=== PATIENT | female | born 1935 | race Caucasian/White ===

== ENCOUNTER 2017-05-03 11:02 | Outpatient (CLI) | payer MEDICARE, BC, SELFPAY | END 2017-05-03 15:59 | PROVIDERS: Family Provider Internal Medicine Adolescent Medicine; Visit Provider Internal Medicine Adolescent Medicine | DX: Z79.01 Long term (current) use of anticoagulants (principal); Z95.2 Presence of prosthetic heart valve; Z51.81 Encounter for therapeutic drug level monitoring | CPT/HCPCS: 85610; 99211; G0463 ==

== ENCOUNTER → 2017-05-24 10:38 | Outpatient (CLI) | payer MEDICARE, BC, SELFPAY ==
[2017-05-24 11:15] LABS: Prothrombin Time 20.7 seconds (9.4-11.8)
[2017-05-24 11:26] LABS: Basophils % 0.5 % (0.1-2.0); Eosinophils % 0.3 % (0.1-12.0); Hematocrit 40.8 % (37.0-47.0); Hemoglobin 13.7 g/dL (12.2-16.2); Lymphocytes # 1.3 K/mm3 (0.7-4.5); Lymphocytes % 26.5 K/mm3 (10-50); Mean Corpuscular HGB Conc 33.6 g/dL (31.8-35.4); Mean Corpuscular Hemoglobin 33.2 pg (27.0-31.2); Mean Corpuscular Volume 98.9 fl (81-99); Mean Platelet Volume 8.8 fl (7.4-10.4); Monocytes # 0.6 K/mm3 (0.1-1.0); Monocytes % 12.6 % (1.7-9.3); Neutrophils # 3.1 K/mm3 (1.8-7.8); Neutrophils % 60.1 % (37.0-80.0); Platelet Count 115 K/mm3 (142-424); Red Blood Count 4.13 M/mm3 (4.20-5.40); Red Cell Distribution Width 12.7 % (11.5-17.5); White Blood Count 5.1 K/mm3 (4.8-10.8)
[2017-05-24 12:43] LABS: Alanine Aminotransferase 23 U/L (12-78); Albumin/Globulin Ratio 1.3 (1.1-1.8); Alkaline Phosphatase 62 U/L (46-116); Anion Gap 13.3 mEq/L (5-15); Aspartate Amino Transferase 30 U/L (15-37); Bilirubin,Total 0.8 mg/dL (0.2-1.0); Blood Urea Nitrogen 14 mg/dL (7-18); Carbon Dioxide 28 mmol/L (21.0-32.0); Chloride 101 mmol/L (98-107); Creatinine,Serum 0.97 mg/dL (0.55-1.02); Estimated Glomerular Filt Rate 55 ml/min (>60); GFR (African American) 67 ML/MIN (>60); Globulin 3.1 gm/dl (1.3-3.2); Glucose 106 mg/dL (74-106); Potassium 4.3 mmoL/L (3.5-5.1); Sodium 138 mmol/L (136-145); Total Protein,Serum 7.1 gm/dL (6.4-8.2)
== END ==
PROVIDERS: Family Provider Internal Medicine Adolescent Medicine; PCP Internal Medicine Adolescent Medicine; Visit Provider Nurse Practitioner Family
DX: J06.9 Acute upper respiratory infection, unspecified (principal); Z95.2 Presence of prosthetic heart valve
CPT/HCPCS: 36415; 80053; 85025; 85610

== ENCOUNTER 2017-05-27 11:09 | Outpatient (CLI) | payer MEDICARE, BC, SELFPAY ==
[2017-05-27 12:57] LABS: INR 4.48 (0.9-1.1); Prothrombin Time 49.1 seconds (9.4-11.8)
[2017-05-27 13:31] LABS: PHA INR Fingerstick 3.8 (0.9-1.1)
== END 2017-05-27 14:09 | disposition home or self-care (01) ==
LOC: ACC 11:12
PROVIDERS: PCP Internal Medicine Adolescent Medicine; Visit Provider Internal Medicine Adolescent Medicine
DX: Z79.01 Long term (current) use of anticoagulants (principal); Z51.81 Encounter for therapeutic drug level monitoring
CPT/HCPCS: 36415; 85610

== ENCOUNTER 2017-06-03 10:34 | Outpatient (CLI) | payer MEDICARE, BC, SELFPAY ==
[2017-06-03 13:05] LABS: INR 4.77 (0.9-1.1); Prothrombin Time 52.3 seconds (9.4-11.8)
[2017-06-03 15:26] LABS: PHA INR Fingerstick 4.2 (0.9-1.1)
== END 2017-06-03 15:32 | disposition home or self-care (01) ==
LOC: ACC 10:37
PROVIDERS: PCP Internal Medicine Adolescent Medicine; Visit Provider Internal Medicine Adolescent Medicine
DX: Z95.2 Presence of prosthetic heart valve (principal); Z79.01 Long term (current) use of anticoagulants; Z51.81 Encounter for therapeutic drug level monitoring
CPT/HCPCS: 36415; 85610

== ENCOUNTER 2017-06-10 10:45 | Outpatient (CLI) | payer MEDICARE, BC, SELFPAY ==
[2017-06-10 14:27] LABS: PHA INR Fingerstick 2.6 (0.9-1.1)
== END 2017-06-10 14:29 | disposition home or self-care (01) ==
LOC: ACC 10:47
PROVIDERS: Family Provider Internal Medicine Adolescent Medicine; PCP Internal Medicine Adolescent Medicine; Visit Provider Internal Medicine Adolescent Medicine
DX: Z95.2 Presence of prosthetic heart valve (principal); Z79.01 Long term (current) use of anticoagulants
CPT/HCPCS: 85610; 99211; G0463

== ENCOUNTER 2017-06-17 10:52 | Outpatient (CLI) | payer MEDICARE, BC, SELFPAY ==
[2017-06-17 13:21] LABS: PHA INR Fingerstick 3.2 (0.9-1.1)
== END 2017-06-17 13:24 | disposition home or self-care (01) ==
LOC: ACC 10:53
PROVIDERS: Family Provider Internal Medicine Adolescent Medicine; PCP Internal Medicine Adolescent Medicine; Visit Provider Internal Medicine Adolescent Medicine
DX: Z79.01 Long term (current) use of anticoagulants (principal); Z51.81 Encounter for therapeutic drug level monitoring
CPT/HCPCS: 85610; 99211; G0463

== ENCOUNTER 2017-07-01 10:42 | Outpatient (CLI) | payer MEDICARE, BC, SELFPAY ==
[2017-07-01 11:46] LABS: PHA INR Fingerstick 2.5 (0.9-1.1)
== END 2017-07-01 11:48 | disposition home or self-care (01) ==
PROVIDERS: PCP Internal Medicine Adolescent Medicine; Visit Provider Internal Medicine Adolescent Medicine
DX: Z79.01 Long term (current) use of anticoagulants (principal); Z51.81 Encounter for therapeutic drug level monitoring; Z95.2 Presence of prosthetic heart valve
CPT/HCPCS: 85610; 99211; G0463

== ENCOUNTER 2017-07-29 10:51 | Outpatient (CLI) | payer MEDICARE, BC, SELFPAY ==
[2017-07-29 11:21] LABS: PHA INR Fingerstick 2.7 (0.9-1.1)
== END 2017-07-29 11:23 | disposition home or self-care (01) ==
LOC: ACC 10:52
PROVIDERS: Family Provider Internal Medicine Adolescent Medicine; PCP Internal Medicine Adolescent Medicine; Visit Provider Internal Medicine Adolescent Medicine
DX: Z79.01 Long term (current) use of anticoagulants (principal); Z51.81 Encounter for therapeutic drug level monitoring
CPT/HCPCS: 85610; 99211; G0463

== ENCOUNTER 2017-08-26 10:43 | Outpatient (CLI) | payer MEDICARE, BC, SELFPAY ==
[2017-08-26 11:45] LABS: PHA INR Fingerstick 2.5 (0.9-1.1)
== END 2017-08-26 11:51 | disposition home or self-care (01) ==
LOC: ACC 10:44
PROVIDERS: Family Provider Internal Medicine Adolescent Medicine; PCP Internal Medicine Adolescent Medicine; Visit Provider Internal Medicine Adolescent Medicine
DX: Z79.01 Long term (current) use of anticoagulants (principal); Z51.81 Encounter for therapeutic drug level monitoring; Z95.2 Presence of prosthetic heart valve
CPT/HCPCS: 85610; 99211; G0463

== ENCOUNTER → 2017-09-05 15:32 | Outpatient (CLI) | payer MEDICARE, BC, SELFPAY ==
--- NOTE | 2017-09-05 15:44 | XR_ITS ---
XR ribs RT min 3V w CXR1V Ordering Physician: Yuli Grey Patient Age: 81 years: Female HISTORY: ITS.REASON: RT SIDED CHEST WALL PAIN TECHNIQUE: Both Oblique view of right ribs AP chest above and below diaphragm COMPARISON :No previous FINDINGS: Right ribs are intact with no fracture nor lesion evident. The lungs are well expanded and clear with no active disease no pneumothorax. No pleural effusion. The subtle rib fractures may be difficult to visualize pain persist consider follow-up The AP view the chest above and below diaphragm. Reveals nonspecific bowel gas pattern and mild dextroscoliosis lumbar spine there is a pacer device overlying the left chest with atrial and ventricular leads intact. Previous replacement and sternotomy evident lungs clear. IMPRESSION: Right ribs intact no fracture evident Lungs clear. No active disease Pacemaker. Valvular Replacement. Sternotomy
== END ==
PROVIDERS: PCP Internal Medicine Adolescent Medicine; Visit Provider Nurse Practitioner Family
DX: R07.89 Other chest pain (principal); M81.0 Age-related osteoporosis without current pathological fracture
CPT/HCPCS: 71101

== ENCOUNTER 2017-09-23 10:44 | Outpatient (CLI) | payer MEDICARE, BC, SELFPAY ==
[2017-09-23 13:44] LABS: PHA INR Fingerstick 2.4 (0.9-1.1)
== END 2017-09-23 13:46 | disposition home or self-care (01) ==
LOC: ACC 10:45
PROVIDERS: PCP Internal Medicine Adolescent Medicine; Visit Provider Internal Medicine Adolescent Medicine
DX: Z79.01 Long term (current) use of anticoagulants (principal); Z51.81 Encounter for therapeutic drug level monitoring; Z95.2 Presence of prosthetic heart valve
CPT/HCPCS: 85610; 99211; G0463

== ENCOUNTER 2017-10-14 10:37 | Outpatient (CLI) | payer MEDICARE, BC, SELFPAY ==
[2017-10-14 11:10] LABS: PHA INR Fingerstick 2.2 (0.9-1.1)
== END 2017-10-14 11:23 | disposition home or self-care (01) ==
LOC: ACC 10:39
PROVIDERS: PCP Internal Medicine Adolescent Medicine; Visit Provider Internal Medicine Adolescent Medicine
DX: Z79.01 Long term (current) use of anticoagulants (principal); Z51.81 Encounter for therapeutic drug level monitoring; Z95.2 Presence of prosthetic heart valve
CPT/HCPCS: 85610; 99211; G0463

== ENCOUNTER 2017-10-28 10:35 | Outpatient (CLI) | payer MEDICARE, BC, SELFPAY ==
[2017-10-28 12:06] LABS: PHA INR Fingerstick 2.4 (0.9-1.1)
== END 2017-10-28 14:54 | disposition home or self-care (01) ==
LOC: ACC 10:37
PROVIDERS: PCP Internal Medicine Adolescent Medicine; Visit Provider Internal Medicine Adolescent Medicine
DX: Z79.01 Long term (current) use of anticoagulants (principal); Z51.81 Encounter for therapeutic drug level monitoring; Z95.0 Presence of cardiac pacemaker
CPT/HCPCS: 85610; 99211; G0463

== ENCOUNTER 2017-11-17 10:18 | Outpatient (CLI) | payer MEDICARE, BC, SELFPAY | END 2017-11-17 11:16 | disposition home or self-care (01) | LOC: ACC 10:19 | PROVIDERS: PCP Internal Medicine Adolescent Medicine; Visit Provider Internal Medicine Adolescent Medicine | DX: Z79.01 Long term (current) use of anticoagulants (principal); Z51.81 Encounter for therapeutic drug level monitoring; Z95.2 Presence of prosthetic heart valve | CPT/HCPCS: 85610; 99211; G0463 ==

== ENCOUNTER → 2017-11-18 11:22 | Outpatient (CLI) | payer MEDICARE, BC, SELFPAY ==
[2017-11-18 12:20] LABS: Basophils % 0.4 % (0.1-2.0); Eosinophils # 0.1 K/mm3 (0.0-0.4); Eosinophils % 1.9 % (0.1-12.0); Hematocrit 46.6 % (37.0-47.0); Hemoglobin 14.8 g/dL (12.2-16.2); Lymphocytes # 1.4 K/mm3 (0.7-4.5); Lymphocytes % 26.3 K/mm3 (10-50); Mean Corpuscular HGB Conc 31.8 g/dL (31.8-35.4); Mean Corpuscular Volume 100.4 fl (81-99); Mean Platelet Volume 8.4 fl (7.4-10.4); Monocytes # 0.3 K/mm3 (0.1-1.0); Monocytes % 5.8 % (1.7-9.3); Neutrophils # 3.6 K/mm3 (1.8-7.8); Neutrophils % 65.6 % (37.0-80.0); Platelet Count 127 K/mm3 (142-424); Red Blood Count 4.64 M/mm3 (4.20-5.40); Red Cell Distribution Width 12.5 % (11.5-17.5); White Blood Count 5.4 K/mm3 (4.8-10.8)
[2017-11-18 13:23] LABS: Alanine Aminotransferase 28 U/L (12-78); Albumin Level 4.4 gm/dL (3.4-5.0); Albumin/Globulin Ratio 1.3 (1.1-1.8); Alkaline Phosphatase 69 U/L (46-116); Amylase 55 U/L (25-125); Anion Gap 10.2 mEq/L (5-15); Aspartate Amino Transferase 35 U/L (15-37); Bilirubin,Total 0.8 mg/dL (0.2-1.0); Blood Urea Nitrogen 15 mg/dL (7-18); Calcium 9.5 mg/dL (8.5-10.1); Carbon Dioxide 30 mmol/L (21.0-32.0); Chloride 107 mmol/L (98-107); Creatinine,Serum 0.84 mg/dL (0.55-1.02); Estimated Glomerular Filt Rate 65 ml/min (>60); GFR (African American) 79 ML/MIN (>60); Globulin 3.5 gm/dl (1.3-3.2); Glucose 101 mg/dL (74-106); Lipase 148 u/L (73-393); Potassium 4.2 mmoL/L (3.5-5.1); Sodium 143 mmol/L (136-145); Total Protein,Serum 7.9 gm/dL (6.4-8.2)
== END ==
PROVIDERS: Visit Provider Internal Medicine Adolescent Medicine
DX: R10.31 Right lower quadrant pain (principal); Z79.01 Long term (current) use of anticoagulants; Z51.81 Encounter for therapeutic drug level monitoring
CPT/HCPCS: 36415; 80053; 82150; 83690; 85025

== ENCOUNTER → 2017-11-21 10:47 | Outpatient (CLI) | payer MEDICARE, BC, SELFPAY ==
--- NOTE | 2017-11-21 10:57 | CT_ITS ---
CT abdomen pelvis wo/w con INDICATION: Right lower quadrant pain. RLQ pain last week better now No diarrhea or constipation PATIENT AGE: 81 years ORDERING PHYSICIAN: Nazario Burk MD COMPARISON: None available . TECHNIQUE: Axial images are obtained abdomen pre and postcontrast IV contrast using 75 cc [id number] on the postcontrast image set.. Oral contrast also utilized and present on both image sequences. Sagittal and coronal reformatted images are reviewed as well. All CT scans at the facility use one or more dose reduction, viz: automated exposure control; ma/kV adjustment per patient size (including targeted exams where dose is matched to indication; i.e. head); or iterative reconstruction technique. FINDINGS: Lung bases. No active disease. Cardiomegaly with mitral valve replacement.LAE . Pacemaker wires Liver. Unremarkable moderate size common duct at hilum of the liver but no] biliary ductal dilatation. Common duct normal at head of pancreas is well. Gallbladder. Mild enhancement of perhaps a slightly thickened gallbladder wall suggest gallbladder ultrasound given the right-sided symptoms. Slightly low-lying gallbladder with fundus just over 2 cm above the iliac crest Pancreas. Slightly atrophic. No lesions nor ductal dilatation. No focal lesions. Spleen. Normal size. Slightly patchy appearance postcontrast most likely reflects early postcontrast imaging most likely. Moderate calcification throughout splenic artery Adrenals unremarkable. Kidneys. No urinary tract calculi evident on the precontrast studies. No urinary tract obstruction. Kidneys appear satisfactory. Ureters unremarkable. GI tract. Stomach emptying with upper normal wall thickness. Small bowel unremarkable. Large bowel. Moderate to generous stool throughout entire colon. Colonic diverticulosis most evident at the sigmoid colon. Terminal ileum unremarkable. Appendix normal. No free fluid or air in the abdomen or pelvis. Pelvis Previous hysterectomy. No adnexal masses no pelvic nor mesenteric nor retroperitoneal adenopathy. Diffuse atherosclerotic calcification aorta as well as at origin of renal arteries. Aorta normal caliber no aneurysm. Osseous. Degenerative changes spine. Hypertrophic facet changes throughout the L-spine most notable IMPRESSION: No acute findings abdomen pelvis Regarding right lower quadrant pain but no inflammatory changes are seen here. Normal-appearing terminal ileum and appendix. A generous stool is seen throughout the colon most evident at the right colon. May reflect mild constipation but unimpressive Gallbladder wall appears borderline to slightly thickened with suggestion mild enhancement. Low-lying gallbladder could give breast right lower quadrant symptoms. Recommend gallbladder ultrasound Colonic diverticulosis most evident sigmoid colon. But no diverticulitis
== END ==
PROVIDERS: Family Provider Internal Medicine Adolescent Medicine; PCP Internal Medicine Adolescent Medicine; Visit Provider Internal Medicine Adolescent Medicine
DX: R10.31 Right lower quadrant pain (principal)
CPT/HCPCS: 74170; 74178; Q9967

== ENCOUNTER → 2017-11-29 08:52 | Outpatient (CLI) | payer MEDICARE, BC, SELFPAY ==
--- NOTE | 2017-11-29 08:55 | US_ITS ---
US abdomen limited History:Abdominal pain, abnormal CT scan of the abdomen Ordering Physician:Nazario Burk MD Patient Age: 82 years Comparison: 11/21/2017 Findings: Pancreas:Unremarkable. No obvious mass or abnormal fluid collection. No ductal dilatation Liver: The liver is normal in size and shows normal parenchyma except for small area of increased echogenicity of the right lobe measuring 2.8 cm in diameter and this likely is a hemangioma. Review of the recent CT scan showed a subtle and questionable area of hypodensity right lobe which became isodense with the liver parenchyma following infusion of IV contrast. Right Kidney:Unremarkable. Normal size and echogenicity. No hydronephrosis Gallbladder: There are somewhat large calcified and partially calcified gallstones and there is slight thickening the gallbladder wall . Impression: Obvious cholelithiasis and there could be some degree of chronic cholecystitis as well. Probable small hemangioma right lobe of the liver
== END ==
PROVIDERS: Family Provider Internal Medicine Adolescent Medicine; PCP Internal Medicine Adolescent Medicine; Visit Provider Internal Medicine Adolescent Medicine
DX: R10.84 Generalized abdominal pain (principal); R93.2 Abnormal findings on diagnostic imaging of liver and biliary tract
CPT/HCPCS: 76705

== ENCOUNTER 2017-12-16 11:16 | Outpatient (CLI) | payer MEDICARE, BC, SELFPAY ==
[2017-12-16 11:59] LABS: PHA INR Fingerstick 2.8 (0.9-1.1)
== END 2017-12-16 12:01 | disposition home or self-care (01) ==
LOC: ACC 11:17
PROVIDERS: Family Provider Internal Medicine Adolescent Medicine; PCP Internal Medicine Adolescent Medicine; Visit Provider Internal Medicine Adolescent Medicine
DX: Z79.01 Long term (current) use of anticoagulants (principal); Z51.81 Encounter for therapeutic drug level monitoring; Z95.2 Presence of prosthetic heart valve
CPT/HCPCS: 85610; 99211; G0463

== ENCOUNTER → 2018-01-03 11:37 | Outpatient (CLI) | payer MEDICARE, BC, SELFPAY ==
[2018-01-03 12:08] LABS: Basophils % 0.5 % (0.1-2.0); Eosinophils # 0.1 K/mm3 (0.0-0.4); Eosinophils % 2.3 % (0.1-12.0); Hematocrit 39.2 % (37.0-47.0); Hemoglobin 13.3 g/dL (12.2-16.2); Lymphocytes # 1.3 K/mm3 (0.7-4.5); Lymphocytes % 25.3 K/mm3 (10-50); Mean Corpuscular HGB Conc 33.9 g/dL (31.8-35.4); Mean Corpuscular Hemoglobin 33.3 pg (27.0-31.2); Mean Corpuscular Volume 98.3 fl (81-99); Mean Platelet Volume 8.1 fl (7.4-10.4); Monocytes # 0.4 K/mm3 (0.1-1.0); Neutrophils # 3.2 K/mm3 (1.8-7.8); Neutrophils % 63.8 % (37.0-80.0); Platelet Count 114 K/mm3 (142-424); Red Blood Count 3.99 M/mm3 (4.20-5.40); Red Cell Distribution Width 12.9 % (11.5-17.5)
[2018-01-03 12:29] LABS: Alanine Aminotransferase 22 U/L (12-78); Albumin Level 3.9 gm/dL (3.4-5.0); Albumin/Globulin Ratio 1.1 (1.1-1.8); Alkaline Phosphatase 67 U/L (46-116); Anion Gap 12.9 mEq/L (5-15); Aspartate Amino Transferase 21 U/L (15-37); Blood Urea Nitrogen 17 mg/dL (7-18); Calcium 9.5 mg/dL (8.5-10.1); Carbon Dioxide 28 mmol/L (21.0-32.0); Chloride 104 mmol/L (98-107); Creatinine,Serum 0.88 mg/dL (0.55-1.02); Estimated Glomerular Filt Rate 62 ml/min (>60); GFR (African American) 75 ML/MIN (>60); Globulin 3.6 gm/dl (1.3-3.2); Glucose 103 mg/dL (74-106); Potassium 3.9 mmoL/L (3.5-5.1); Sodium 141 mmol/L (136-145); Total Protein,Serum 7.5 gm/dL (6.4-8.2)
== END ==
PROVIDERS: Family Provider Internal Medicine Adolescent Medicine; PCP Internal Medicine Adolescent Medicine; Visit Provider Surgery
DX: Z01.818 Encounter for other preprocedural examination (principal); K80.10 Calculus of gallbladder with chronic cholecystitis without obstruction
CPT/HCPCS: 36415; 80053; 85025; 93005

== ENCOUNTER 2018-01-10 10:39 | Inpatient (IN) ==
--- NOTE | 2018-01-10 10:58 | Emergency Department Note ---
ED Disposition Clinical Impression: Hematoma following procedure, Mechanical heart valve present, Subtherapeutic anticoagulation Clinical Impression: (Ruled Out): Hematoma Disposition: Home, Self-Care Condition on Discharge: Fair Referrals: Nazario Burk MD [Primary Care Provider] - - Critical Care Critical Care Time: No Attestation: On , the high probability of a clinically significant, sudden or life threatening deterioration of the following system(s) required my full and direct attention, intervention and personal management. The time I documented below is in addition to time spent performing reported procedures but includes the following listed in this critical care notation. Medical Decision Making - [place] Inquiry Pt receiving controlled substance: No [place] was queried for this patient: No Vital Signs: 01/10/18 10:53 01/10/18 11:09 01/10/18 11:55 Temperature 98.6 F 98.6 F Temperature Source Oral Oral Pulse Rate [Left Radial] 63 63 82 Respiratory Rate 20 20 Blood Pressure [Right Arm] 151/75 151/75 143/82 Blood Pressure Mean [Right Arm] 100 100 102 Blood Pressure Source [Right Arm] Automatic Cuff Automatic Cuff Automatic Cuff Blood Pressure Position [Right Arm] Sitting Sitting Sitting 02 Sat by Pulse Oximetry 97 97 97 Oxygen Delivery Method Room Air Room Air 01/10/18 12:12 01/10/18 13:21 Temperature Temperature Source Pulse Rate [Left Radial] 60 63 Respiratory Rate 18 Blood Pressure [Right Arm] 122/73 122/60 Blood Pressure Mean [Right Arm] 89 80 Blood Pressure Source [Right Arm] Automatic Cuff Automatic Cuff Blood Pressure Position [Right Arm] Sitting Sitting 02 Sat by Pulse Oximetry 96 98 Oxygen Delivery Method Room Air - Lab Data Lab Results 01/10/18 10:55: WBC 8.2, RBC 3.62 L, Hgb 12.0 L, Hct 36.2 L, MCV 100.0 H, MCH 33.3 H, MCHC 33.3, RDW 13.0, Plt Count 135 L, MPV 8.4, Neut % (Auto) 70.8, Lymph % (Auto) 20.9, [place] % (Auto) 6.6, Eos % (Auto) 1.5, Baso % (Auto) 0.2, Neut # (Auto) 5.8, Lymph # (Auto) 1.7, [place] # (Auto) 0.5, Eos # (Auto) 0.1, Baso # (Auto) 0.0 01/10/18 10:55: PT 15.7 H, INR 1.54 H, APTT 33.3 01/10/18 10:55: Sodium 142, Potassium 4.2, Chloride 105, Carbon Dioxide 31, Anion Gap 10.2, BUN 13, Creatinine 1.00, Estimated Creat Clear 38, Estimated GFR 53 L, Est GFR ( Amer) 65, Glucose 121 H, Calcium 8.9, Total Bilirubin 0.7, AST 23, ALT 38, Alkaline Phosphatase 65, Total Creatine Kinase 25 L, CK-MB (CK-2) < 0.5, CK-MB (CK-2) Rel Index 2.0, Troponin I < 0.02, Total Protein 7.1, Albumin 3.6, Globulin 3.5 H, Albumin/Globulin Ratio 1.0 L 01/10/18 13:57: Urine Color Yellow, Urine Appearance Clear, Urine pH 7.5, Ur Specific [place] 1.010, Urine Protein Negative, Urine Glucose (UA) Negative, Urine Ketones Negative, Urine Blood Negative, Urine Nitrate Negative, Urine Bilirubin Negative, Urine Urobilinogen 0.2, Ur Leukocyte Esterase Negative, Urine RBC Occasional, Urine WBC None, Ur Squamous Epith Cells Occasional, Urine Bacteria Trace Result diagrams: 01/10/18 10:55 01/10/18 10:55 Orders (Tests/Meds): ED MEDICATIONS Discontinued Medications Generic Name Dose Route Start Last Admin Trade Name Freq PRN Reason Stop Dose Admin Enoxaparin Sodium 40 mg 01/10/18 12:10 Lovenox 40mg/0.4ml Syringe SQ 01/10/18 12:11 ONCE ONE Famotidine 20 mg 01/10/18 12:11 Pepcid 20mg/2ml Vial IV 01/10/18 12:12 ONCE ONE Iopamidol 75 ml 01/10/18 13:02 01/10/18 13:04 [id number]; 75ml Vial IV 01/10/18 13:03 75 ml ONCE ONE Administration Protocol Morphine Sulfate 2 mg 01/10/18 10:59 01/10/18 11:00 Morphine 2mg/Ml Syringe IV 01/10/18 11:00 2 mg ONCE ONE Administration Morphine Sulfate 2 mg 01/10/18 12:03 01/10/18 12:08 Morphine 2mg/Ml Syringe IV 01/10/18 12:04 2 mg ONCE ONE Administration Ondansetron HCl 4 mg 01/10/18 10:59 01/10/18 11:00 Zofran 4mg/2ml Vial IV 01/10/18 11:00 4 mg ONCE ONE Administration Sodium Chloride 10 ml 01/10/18 13:02 01/10/18 13:04 Rad-Saline Flush 10ml Syringe IV 01/10/18 13:03 10 ml ONCE ONE Administration ORDERS Category Date Time Status Urinalysis and Microscopic Stat Lab 01/10/18 13:57 Ordered - CT Data CT Scan: Abdomen, Pelvis Time Received: 13:[address] Reviewed: Yes: I have viewed the radiologist's interpretation Preliminary Findings: Abnormal Findings Narrative: MPRESSION: 1. Large abdominal wall hematoma within the subcutaneous tissues anterior to the abdominal wall musculature. There is some stranding of the fat adjacent to the hematoma in the small amount gas in the anterior abdominal wall well does not appear to be within the hematoma. 2. Status post cholecystectomy with some slight increased prominence of the biliary tree - ECG Data Tracing #1 AV dual-chamber pacemaker. ECG initial impression date: 01/10/18 ECG initial impression time: 11:05 Medical Decision Narrative: The patient's INR was 1.5 which is subtherapeutic. We will me that maintains her Coumadin between 2.5-3.5. So the patient was given a Lovenox 40 mg subcu. Later I discussed full labs CT scan report with her, Dr. Gonzalez, and Jaun from pharmacy. We agreed that she will continue Lovenox and be seen by Jaun in the morning for repeat INR. Call Dr. Burk her primary care physician but he was unavailable and asked me to speak to Dr. Gonzalez as above. Abdominal Pain HPI - General Stated Complaint: Tuesday GB Surgery Pain Time Seen by Provider: 01/10/18 10:50 Mode of Arrival: Ambulatory Source of Information: Patient, Relative - History of Present Illness HPI narrative: 82 years old white female status post metallic valve replacement 1999. Until her lap sammy surgery on January 06 when she was switched to Lovenox since then, she started her Coumadin 24 hours later. She came to get her INR checked yesterday but there was no order. Last nigh 01/10 at 330 AM, she developed left sided burning pain for which she took 1 of her [place] but the pain progressed to severe sharp with no nausea no vomiting no diarrhea no dysuria no hematuria or frequency. She denies chest pain shortness of breath palpitations hemoptysis hematemesis coffee-ground emesis melanotic stool or bleeding per rectum. He has no history of liver or kidney disease diabetes. The pain is worse with movement. MD complaint: abdominal pain Onset (ago): hour(s) (7 hours ago.) Consistency: constant Severity: severe Severity scale (1-10): 10 Quality: sharp, burning, other (These see HPI. ) Radiation: none Migration to: no migration Relieving factors: rest Exacerbating factors: movement - Related Data Home Medications Medication Instructions Recorded Confirmed ascorbic acid (vitamin C) 500 mg 1 g PO ONCE tab 06/13/17 01/10/18 tablet calcium carbonate-vitamin D3 600 1 cap PO DAILY 06/13/17 01/10/18 mg calcium-200 unit capsule docusate sodium 250 mg capsule 250 mg PO ONCE 06/13/17 01/10/18 metoprolol tartrate 25 mg tablet 25 mg PO BID 06/13/17 01/10/18 nitroglycerin 0.4 mg sublingual 0.4 mg SUBLINGUAL Q5M PRN 06/13/17 01/10/18 tablet simvastatin 40 mg tablet 40 mg PO QAM 06/13/17 01/10/18 tramadol 37.5 mg-acetaminophen 325 1 tab PO Q4H PRN 06/13/17 01/10/18 mg tablet warfarin 1 mg tablet 1 mg PO ONCE 06/13/17 01/10/18 warfarin 2 mg tablet 2 mg PO ONCE 06/13/17 01/10/18 Losartan Potassium [Cozaar] 50 mg PO ONCE 12/09/17 01/10/18 Allergies Allergy/AdvReac Type Severity Reaction Status Date / Time Sulfa (Sulfonamide Allergy Intermediate Verified 12/07/17 14:35 Antibiotics) [SULFA (SULFONAMIDE ANTIBIOTICS)] [facility] History I have reviewed the patient's past medical history: Yes Medical History: Reports:: Congenital Heart Disease Denies:: Seizures Other Medical History: Denies: Blood Transfusion Reaction Other Surgeries: Yes: Hysterectomy-Total, Other - Social History Smoking Status: Never smoker Alcohol Intake: never Alcohol Intake Frequency:: other Substance Use Type: denies use Family Hx:: No significant family history ROS Obtained: Yes All systems reviewed & no additional complaints Physical Exam - General General appearance: alert, in no apparent distress, anxious - Head Head exam: atraumatic, normocephalic, normal inspection - Eye Eye exam: Present: normal appearance, PERRL, EOMI. Absent: scleral icterus, nystagmus - ENT ENT exam: Present: normal exam, normal oropharynx, mucous membranes moist, TM's normal bilaterally, normal external ear exam - Neck Neck exam: Present: normal inspection, full ROM, trachea midline. Absent: tenderness, meningismus, lymphadenopathy - Chest Chest inspection: Present: normal inspection, symmetric chest wall rise. Absent: tenderness - Respiratory Respiratory exam: Present: normal lung sounds bilaterally. Absent: respiratory distress - Cardiovascular Cardiovascular exam: Present: regular rate, normal rhythm, other (Metallic click. ). Absent: JVD - Abdominal Exam Abdominal exam: Present: soft, distention, tenderness, guarding, normal bowel sounds, other. Absent: rebound, rigidity, tenderness at [place] (Well- healed abdominal scar matching the age of her cholecystectomy , large multiple anterior abdominal wall bruising correlates with her lovenox injections, there left-sided abdominal distention and induration of the end to her abdominal wall.) - Extremities Exam Extremities exam: Present: normal inspection, tenderness, normal capillary refill. Absent: full ROM (Chronic right knee range of motion with tenderness, patient told me that she is due for knee replacement surgery), calf tenderness - Back Exam Back exam: Present: normal inspection. Absent: CVA tenderness (R), CVA tenderness (L), paraspinal tenderness, vertebral tenderness - Neurological Exam Neurological exam: Present: alert, oriented X3, CN II-XII intact, motor sensory deficit, reflexes normal - Psychiatric Psychiatric exam: Present: agitated, anxious - Skin Skin exam: Present: warm, dry - Lymphatic Lymphatic Findings: no adenopathy
[2018-01-10 11:07] LABS: Basophils % 0.2 % (0.1-2.0); Eosinophils # 0.1 K/mm3 (0.0-0.4); Eosinophils % 1.5 % (0.1-12.0); Hematocrit 36.2 % (37.0-47.0); Lymphocytes # 1.7 K/mm3 (0.7-4.5); Lymphocytes % 20.9 K/mm3 (10-50); Mean Corpuscular HGB Conc 33.3 g/dL (31.8-35.4); Mean Corpuscular Hemoglobin 33.3 pg (27.0-31.2); Mean Platelet Volume 8.4 fl (7.4-10.4); Monocytes # 0.5 K/mm3 (0.1-1.0); Monocytes % 6.6 % (1.7-9.3); Neutrophils # 5.8 K/mm3 (1.8-7.8); Neutrophils % 70.8 % (37.0-80.0); Platelet Count 135 K/mm3 (142-424); Red Blood Count 3.62 M/mm3 (4.20-5.40); White Blood Count 8.2 K/mm3 (4.8-10.8)
[2018-01-10 11:24] LABS: Activated Partial Thrombo Time 33.3 seconds (23.6-34.0); INR 1.54 (0.9-1.1); Prothrombin Time 15.7 seconds (9.4-11.8)
[2018-01-10 11:41] LABS: Alanine Aminotransferase 38 U/L (12-78); Albumin Level 3.6 gm/dL (3.4-5.0); Alkaline Phosphatase 65 U/L (46-116); Anion Gap 10.2 mEq/L (5-15); Aspartate Amino Transferase 23 U/L (15-37); Bilirubin,Total 0.7 mg/dL (0.2-1.0); Blood Urea Nitrogen 13 mg/dL (7-18); Calcium 8.9 mg/dL (8.5-10.1); Carbon Dioxide 31 mmol/L (21.0-32.0); Chloride 105 mmol/L (98-107); Creatine Kinase 25 U/L (26-192); Globulin 3.5 gm/dl (1.3-3.2); Glucose 121 mg/dL (74-106); Potassium 4.2 mmoL/L (3.5-5.1); Sodium 142 mmol/L (136-145); Total Protein,Serum 7.1 gm/dL (6.4-8.2)
[2018-01-10 14:04] LABS: Microscopic, Urine URINE MICROSCOPIC (MICROSCOPIC)
[2018-01-10 14:08] LABS: Appearance,Urine CLEAR (Clear); Bilirubin,Urine Negative (Negative); Blood, Urine Negative (Negative); Color,Urine YELLOW (Yellow); Glucose,Urine (UA) Negative (Negative); Ketones,Urine Negative (Negative); Leukocyte Esterase,Urine Negative (Negative); PH,Urine 7.5 (5.0-8.5); Protein,Urine Negative (Negative); Urobilinogen,Urine 0.2 EU/dl (0.2)
[2018-01-10 14:23] LABS: Bacteria,Urine Trace /lpf; RBC,Urine Occasional #/hpf (0-3); Squamous Epithelial Cell,Urine Occasional #/hpf (0-5)
[2018-01-10 21:02] LABS: Basophils % 0.2 % (0.1-2.0); Eosinophils # 0.1 K/mm3 (0.0-0.4); Eosinophils % 0.6 % (0.1-12.0); Hematocrit 30.5 % (37.0-47.0); Lymphocytes # 1.1 K/mm3 (0.7-4.5); Lymphocytes % 10.1 K/mm3 (10-50); Mean Corpuscular HGB Conc 32.4 g/dL (31.8-35.4); Mean Corpuscular Hemoglobin 33.1 pg (27.0-31.2); Mean Platelet Volume 9.3 fl (7.4-10.4); Monocytes # 0.5 K/mm3 (0.1-1.0); Neutrophils # 8.9 K/mm3 (1.8-7.8); Neutrophils % 84.2 % (37.0-80.0); Platelet Count 125 K/mm3 (142-424); Red Blood Count 2.99 M/mm3 (4.20-5.40); Red Cell Distribution Width 13.3 % (11.5-17.5); White Blood Count 10.6 K/mm3 (4.8-10.8)
[2018-01-10 21:08] LABS: Hemoglobin 9.9 g/dL (12.2-16.2)
--- NOTE | 2018-01-11 07:29 | Pharmacy Consult Notes ---
[facility] Pharmacy VTE Monitoring - Patient Demographics Admission date: 01/10/18 Report Date: 01/11/18 Time: 07:23 Allergies/Adverse Reactions: Patient Allergies Sulfa (Sulfonamide Antibiotics) [SULFA (SULFONAMIDE ANTIBIOTICS)] Allergy (Intermediate, Verified 12/07/17 14:35) Height: 1.6 m Weight: 56.331 kg Patient Problems: Current Active Problems Hematoma following procedure (Acute) Mechanical heart valve present (Acute) Subtherapeutic anticoagulation (Acute) - VTE Risk Labs: VTE Related Lab Results Hgb 9.9 g/dL (12.2-16.2) L D 01/10/18 20:56 Hct 30.5 % (37.0-47.0) L 01/10/18 20:56 Plt Count 125 K/mm3 (142-424) L 01/10/18 20:56 PT 15.7 seconds (9.4-11.8) H 01/10/18 10:55 INR 1.54 (0.9-1.1) H 01/10/18 10:55 APTT 33.3 seconds (23.6-34.0) 01/10/18 10:55 BUN 13 mg/dL (7-18) 01/10/18 10:55 Creatinine 1.00 mg/dL (0.55-1.02) 01/10/18 10:55 Estimated Creat Clear 38 mL/min (0-300) 01/10/18 10:55 VTE Risk Level: Very Low Risk - Prophylaxis VTE Prophylaxis Ordered?: Yes Types of VTE Prophylaxis: TEDS Knee High Location of Applied Device: Bilateral Lower Extremeties - VTE Diagnosis Confirmed Treatment or plan recommended: Continue Current Treatment
[2018-01-11 08:32] LABS: Basophils % 0.2 % (0.1-2.0); Eosinophils # 0.1 K/mm3 (0.0-0.4); Eosinophils % 0.7 % (0.1-12.0); Hematocrit 27.3 % (37.0-47.0); Lymphocytes # 1.2 K/mm3 (0.7-4.5); Lymphocytes % 17.1 K/mm3 (10-50); Mean Corpuscular HGB Conc 32.9 g/dL (31.8-35.4); Mean Corpuscular Hemoglobin 33.5 pg (27.0-31.2); Mean Corpuscular Volume 101.9 fl (81-99); Mean Platelet Volume 8.6 fl (7.4-10.4); Monocytes # 0.5 K/mm3 (0.1-1.0); Monocytes % 6.2 % (1.7-9.3); Neutrophils # 5.4 K/mm3 (1.8-7.8); Neutrophils % 75.8 % (37.0-80.0); Platelet Count 122 K/mm3 (142-424); Red Blood Count 2.68 M/mm3 (4.20-5.40); Red Cell Distribution Width 13.4 % (11.5-17.5); White Blood Count 7.2 K/mm3 (4.8-10.8)
[2018-01-11 08:34] LABS: Anion Gap 9.9 mEq/L (5-15); Calcium 8.4 mg/dL (8.5-10.1); Potassium 3.9 mmoL/L (3.5-5.1)
[2018-01-11 08:36] LABS: INR 1.44 (0.9-1.1); Prothrombin Time 14.7 seconds (9.4-11.8)
--- NOTE | 2018-01-11 09:05 | History & Physical Report ---
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 She had been appropriately bridged with Lovenox therapy and had been at home getting Lovenox injections and began to have abdominal pain and swelling and came to the emergency department yesterday. Emergency department workup was lengthy and included CT scan, hemoglobin levels and INR levels which showed significant abdominal wall hematomas but no evidence of internal GI or surgical pathology. She was found to have hemoglobin of 12 initially and an INR 1.5. She was given several doses of morphine in the ER for pain which resulted in hypotensive response. Because of this she was admitted to hospital overnight for evaluation of her significant comorbidities, further careful observation of her anticoagulation status and evaluation of her hypotension. This morning her blood pressure has improved but she had significant problems with owning through the night and received a dose of Risperdal this morning that helped her somewhat. This morning she is anxious, angry and somewhat paranoid about her hospital stay. No family is present this morning. [facility] History I have reviewed the patient's past medical history: Yes Medical History: Reports:: Congenital Heart Disease Denies:: Cancer, Diabetes Mellitus Type 1, Diabetes Mellitus Type 2, MRSA, Seizures Other Medical History: Denies: Blood Transfusion Reaction Comment: Status post mechanical valve replacement. On long-term warfarin therapy. Other Surgeries: Yes: Cholecystectomy (5 days ago), Hysterectomy-Total, Other Amputation: No Fractures: No - *Social History Educational Level: Completed High School Smoking Status: Never smoker Alcohol Intake: never Alcohol Intake Frequency:: other Substance Use Type: denies use Occupational Status: retired Housing: house Household Members: none - Psychiatric History Expresses thoughts of harming self/others: None Suicide Plan Description: No Plan *Family Hx:: No significant family history Review of Systems - Review of Systems Review of systems:: unable to obtain Patient currently denies pain or shortness of air but review of system is compromised by her significant anxiety issues Meds Home Medications Medication Instructions Recorded Confirmed Type ascorbic acid (vitamin C) 500 mg 1 gm PO DAILY tab 06/13/17 01/11/18 History tablet calcium carbonate-vitamin D3 600 1 cap PO DAILY 06/13/17 01/10/18 History mg calcium-200 unit capsule docusate sodium 250 mg capsule 250 mg PO DAILY 06/13/17 01/11/18 History metoprolol tartrate 25 mg tablet 25 mg PO BID 06/13/17 01/10/18 History nitroglycerin 0.4 mg sublingual 0.4 mg SUBLINGUAL Q5MINP PRN 06/13/17 01/11/18 History tablet simvastatin 40 mg tablet 40 mg PO HS 06/13/17 01/11/18 History tramadol 37.5 mg-acetaminophen 325 1 tab PO TIDP PRN 06/13/17 01/11/18 History mg tablet Losartan Potassium [Cozaar] 50 mg PO DAILY 12/09/17 01/11/18 History Warfarin Sodium 3 mg PO DAILY 01/11/18 01/11/18 History Allergies Allergy/AdvReac Type Severity Reaction Status Date / Time Sulfa (Sulfonamide Allergy Intermediate Verified 12/07/17 14:35 Antibiotics) [SULFA (SULFONAMIDE ANTIBIOTICS)] Exam Vital signs and Labs for Last 24 Hours: Temp Pulse Resp BP Pulse Ox 98.7 F 89 16 94/53 96 01/11/18 08:00 01/11/18 08:00 01/11/18 08:00 01/11/18 08:00 01/11/18 08:00 Laboratory Results - last 24 hr 01/10/18 10:55: WBC 8.2, RBC 3.62 L, Hgb 12.0 L, Hct 36.2 L, MCV 100.0 H, MCH 33.3 H, MCHC 33.3, RDW 13.0, Plt Count 135 L, MPV 8.4, Neut % (Auto) 70.8, Lymph % (Auto) 20.9, [place] % (Auto) 6.6, Eos % (Auto) 1.5, Baso % (Auto) 0.2, Neut # (Auto) 5.8, Lymph # (Auto) 1.7, [place] # (Auto) 0.5, Eos # (Auto) 0.1, Baso # (Auto) 0.0 01/10/18 10:55: PT 15.7 H, INR 1.54 H, APTT 33.3 01/10/18 10:55: Sodium 142, Potassium 4.2, Chloride 105, Carbon Dioxide 31, Anion Gap 10.2, BUN 13, Creatinine 1.00, Estimated Creat Clear 38, Estimated GFR 53 L, Est GFR ( Amer) 65, Glucose 121 H, Calcium 8.9, Total Bilirubin 0.7, AST 23, ALT 38, Alkaline Phosphatase 65, Total Creatine Kinase 25 L, CK-MB (CK-2) < 0.5, CK-MB (CK-2) Rel Index 2.0, Troponin I < 0.02, Total Protein 7.1, Albumin 3.6, Globulin 3.5 H, Albumin/Globulin Ratio 1.0 L 01/10/18 13:57: Urine Color Yellow, Urine Appearance Clear, Urine pH 7.5, Ur Specific [place] 1.010, Urine Protein Negative, Urine Glucose (UA) Negative, Urine Ketones Negative, Urine Blood Negative, Urine Nitrate Negative, Urine Bilirubin Negative, Urine Urobilinogen 0.2, Ur Leukocyte Esterase Negative, Urine RBC Occasional, Urine WBC None, Ur Squamous Epith Cells Occasional, Urine Bacteria Trace 01/10/18 20:56: WBC 10.6 D, RBC 2.99 L, Hgb 9.9 L D, Hct 30.5 L, MCV 102.0 H, MCH 33.1 H, MCHC 32.4, RDW 13.3, Plt Count 125 L, MPV 9.3, Neut % (Auto) 84.2 H, Lymph % (Auto) 10.1, [place] % (Auto) 5.0, Eos % (Auto) 0.6, Baso % (Auto) 0.2, Neut # (Auto) 8.9 H, Lymph # (Auto) 1.1, [place] # (Auto) 0.5, Eos # (Auto) 0.1, Baso # (Auto) 0.0 01/11/18 08:15: WBC 7.2 D, RBC 2.68 L, Hgb 9.0 L, Hct 27.3 L, MCV 101.9 H, MCH 33.5 H, MCHC 32.9, RDW 13.4, Plt Count 122 L, MPV 8.6, Neut % (Auto) 75.8, Lymph % (Auto) 17.1, [place] % (Auto) 6.2, Eos % (Auto) 0.7, Baso % (Auto) 0.2, Neut # (Auto) 5.4, Lymph # (Auto) 1.2, [place] # (Auto) 0.5, Eos # (Auto) 0.1, Baso # (Auto) 0.0 01/11/18 08:15: Sodium 142, Potassium 3.9, Chloride 105, Carbon Dioxide 31, Anion Gap 9.9, BUN 19 H D, Creatinine 1.15 H, Estimated Creat Clear 35, Estimated GFR 45 L, Est GFR ( Amer) 55 L, Glucose 137 H, Calcium 8.4 L 01/11/18 08:15: PT 14.7 H, INR 1.44 H I & O for Last 24 hours: Intake & Output 01/08/18 01/09/18 01/10/18 01/11/18 11:59 11:59 11:59 11:59 Intake Total 360 / 360 Output Total 200 / 200 Balance 160 / 160 Weight 118 lb 124 lb 3 oz Narrative: Patient is anxious. Oriented 2 and does recognize me but very paranoid about nursing care and the location of her personal effects. ENT exam is clear, no JVD. Lungs are clear, heart rate regular with crisp mechanical valve sound. Abdomen has multiple sites of bruising and swelling consistent with the abdominal hematomas noted on CAT scan. She has no tenderness in the upper abdomen, surgical incisions look great. No edema or clubbing. Able to move her extremities well. 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 Cautious/low-dose lorazepam. (2) Dementia Current visit: Yes Status: Acute Category: Medical Code(s): F03.90 - Unspecified dementia without behavioral disturbance (3) Hematoma following procedure Current visit: Yes Status: Acute Category: Medical No evidence of expansion of the hematoma. Hemoglobin drop is probably from fluids administered in the ER versus hemodynamic balancing. We will watch in observation in the hospital setting with hemoglobin levels tonight and tomorrow morning. We will obviously have to cautiously continue anticoagulation given her mechanical heart valve. (4) Mechanical heart valve present Current visit: Yes Status: Acute Category: Surgical Code(s): Z95.2 - Presence of prosthetic heart valve Restart Lovenox given the subtherapeutic warfarin level. (5) Subtherapeutic anticoagulation Current visit: Yes Status: Acute Category: Medical Code(s): Z51.81 - Encounter for therapeutic drug level monitoring; Z79.01 - watermaster (current) use of anticoagulants (6) watermaster (current) use of anticoagulants Current visit: No Status: Acute Category: Medical Code(s): Z79.01 - senior living (current) use of anticoagulants
--- NOTE | 2018-01-11 12:51 | Consult Report ---
*Admission Date: 01/10/18 *Chief complaint: hematoma *History of present illness: This is an 82-year-old female who was underwent laparoscopic cholecystectomy. She withheld her Coumadin and was bridged with Lovenox for this procedure. She presented to the emergency department with abdominal pain and was found to have multiple abdominal wall hematomas. She was admitted to her primary service and surgical consultation ordered. 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 She had been appropriately bridged with Lovenox therapy and had been at home getting Lovenox injections and began to have abdominal pain and swelling and came to the emergency department yesterday. Emergency department workup was lengthy and included CT scan, hemoglobin levels and INR levels which showed significant abdominal wall hematomas but no evidence of internal GI or surgical pathology. She was found to have hemoglobin of 12 initially and an INR 1.5. She was given several doses of morphine in the ER for pain which resulted in hypotensive response. Because of this she was admitted to hospital overnight for evaluation of her significant comorbidities, further careful observation of her anticoagulation status and evaluation of her hypotension. This morning her blood pressure has improved but she had significant problems with owning through the night and received a dose of Risperdal this morning that helped her somewhat. This morning she is anxious, angry and somewhat paranoid about her hospital stay. No family is present this morning. 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 Denies:: Cancer, Diabetes Mellitus Type 1, Diabetes Mellitus Type 2, MRSA, Seizures Other Medical History: Denies: Blood Transfusion Reaction Other Surgeries: Yes: Cholecystectomy (5 days ago), Hysterectomy-Total, Other Amputation: No Fractures: No - *Social History Educational Level: Completed High School Smoking Status: Never smoker Alcohol Intake: never Alcohol Intake Frequency:: other Substance Use Type: denies use Occupational Status: retired Housing: house Household Members: none - Psychiatric History Expresses thoughts of harming self/others: None Suicide Plan Description: No Plan *Family Hx:: No significant family history Meds Home Medications Medication Instructions Recorded Confirmed Type ascorbic acid (vitamin C) 500 mg 1 gm PO DAILY tab 06/13/17 01/11/18 History tablet calcium carbonate-vitamin D3 600 1 cap PO DAILY 06/13/17 01/10/18 History mg calcium-200 unit capsule docusate sodium 250 mg capsule 250 mg PO DAILY 06/13/17 01/11/18 History metoprolol tartrate 25 mg tablet 25 mg PO BID 06/13/17 01/10/18 History nitroglycerin 0.4 mg sublingual 0.4 mg SUBLINGUAL Q5MINP PRN 06/13/17 01/11/18 History tablet simvastatin 40 mg tablet 40 mg PO HS 06/13/17 01/11/18 History tramadol 37.5 mg-acetaminophen 325 1 tab PO TID 06/13/17 01/11/18 History mg tablet Losartan Potassium [Cozaar] 50 mg PO DAILY 12/09/17 01/11/18 History Donepezil HCl [Aricept 5mg] 5 mg PO HS 01/11/18 01/11/18 History Warfarin Sodium 3 mg PO DAILY 01/11/18 01/11/18 History Allergies Allergy/AdvReac Type Severity Reaction Status Date / Time Sulfa (Sulfonamide Allergy Intermediate Verified 12/07/17 14:35 Antibiotics) [SULFA (SULFONAMIDE ANTIBIOTICS)] Exam Vital signs and Labs for Last 24 Hours: Temp Pulse Resp BP Pulse Ox 98.7 F 83 16 115/83 96 01/11/18 08:00 01/11/18 11:59 01/11/18 08:00 01/11/18 11:59 01/11/18 08:00 Laboratory Results - last 24 hr 01/10/18 13:57: Urine Color Yellow, Urine Appearance Clear, Urine pH 7.5, Ur Specific [place] 1.010, Urine Protein Negative, Urine Glucose (UA) Negative, Urine Ketones Negative, Urine Blood Negative, Urine Nitrate Negative, Urine Bilirubin Negative, Urine Urobilinogen 0.2, Ur Leukocyte Esterase Negative, Urine RBC Occasional, Urine WBC None, Ur Squamous Epith Cells Occasional, Urine Bacteria Trace 01/10/18 20:56: WBC 10.6 D, RBC 2.99 L, Hgb 9.9 L D, Hct 30.5 L, MCV 102.0 H, MCH 33.1 H, MCHC 32.4, RDW 13.3, Plt Count 125 L, MPV 9.3, Neut % (Auto) 84.2 H, Lymph % (Auto) 10.1, [place] % (Auto) 5.0, Eos % (Auto) 0.6, Baso % (Auto) 0.2, Neut # (Auto) 8.9 H, Lymph # (Auto) 1.1, [place] # (Auto) 0.5, Eos # (Auto) 0.1, Baso # (Auto) 0.0 01/11/18 08:15: WBC 7.2 D, RBC 2.68 L, Hgb 9.0 L, Hct 27.3 L, MCV 101.9 H, MCH 33.5 H, MCHC 32.9, RDW 13.4, Plt Count 122 L, MPV 8.6, Neut % (Auto) 75.8, Lymph % (Auto) 17.1, [place] % (Auto) 6.2, Eos % (Auto) 0.7, Baso % (Auto) 0.2, Neut # (Auto) 5.4, Lymph # (Auto) 1.2, [place] # (Auto) 0.5, Eos # (Auto) 0.1, Baso # (Auto) 0.0 01/11/18 08:15: Sodium 142, Potassium 3.9, Chloride 105, Carbon Dioxide 31, Anion Gap 9.9, BUN 19 H D, Creatinine 1.15 H, Estimated Creat Clear 35, Estimated GFR 45 L, Est GFR ( Amer) 55 L, Glucose 137 H, Calcium 8.4 L 01/11/18 08:15: PT 14.7 H, INR 1.44 H I & O for Last 24 hours: Intake & Output 01/09/18 01/10/18 01/11/18 01/12/18 11:59 11:59 11:59 11:59 Intake Total 360 / 360 Output Total 200 / 200 Balance 160 / 160 Weight 118 lb 124 lb 3 oz - Constitutional no acute distress, agitated - *Routine Respiratory Exam Absent: respiratory distress - *Routine Abdominal Exam Present: tenderness Comments: + multiple hematomas (they do not seem to be actively expanding) along the a nterior abdominal wall [at sites of recent incisions and recent Lovenox injections] Results - Labs 01/11/18 08:15 01/11/18 08:15 Laboratory Results - last 24 hr 01/10/18 13:57: Urine Color Yellow, Urine Appearance Clear, Urine pH 7.5, Ur Specific [place] 1.010, Urine Protein Negative, Urine Glucose (UA) Negative, Urine Ketones Negative, Urine Blood Negative, Urine Nitrate Negative, Urine Bilirubin Negative, Urine Urobilinogen 0.2, Ur Leukocyte Esterase Negative, Urine RBC Occasional, Urine WBC None, Ur Squamous Epith Cells Occasional, Urine Bacteria Trace 01/10/18 20:56: WBC 10.6 D, RBC 2.99 L, Hgb 9.9 L D, Hct 30.5 L, MCV 102.0 H, MCH 33.1 H, MCHC 32.4, RDW 13.3, Plt Count 125 L, MPV 9.3, Neut % (Auto) 84.2 H, Lymph % (Auto) 10.1, [place] % (Auto) 5.0, Eos % (Auto) 0.6, Baso % (Auto) 0.2, Ne ut # (Auto) 8.9 H, Lymph # (Auto) 1.1, [place] # (Auto) 0.5, Eos # (Auto) 0.1, Baso # (Auto) 0.0 01/11/18 08:15: WBC 7.2 D, RBC 2.68 L, Hgb 9.0 L, Hct 27.3 L, MCV 101.9 H, MCH 33.5 H, MCHC 32.9, RDW 13.4, Plt Count 122 L, MPV 8.6, Neut % (Auto) 75.8, Lymph % (Auto) 17.1, [place] % (Auto) 6.2, Eos % (Auto) 0.7, Baso % (Auto) 0.2, Neut # (Auto) 5.4, Lymph # (Auto) 1.2, [place] # (Auto) 0.5, Eos # (Auto) 0.1, Baso # (Aut o) 0.0 01/11/18 08:15: Sodium 142, Potassium 3.9, Chloride 105, Carbon Dioxide 31, Anion Gap 9.9, BUN 19 H D, Creatinine 1.15 H, Estimated Creat Clear 35, Estimated GFR 45 L, Est GFR ( Amer) 55 L, Glucose 137 H, Calcium 8.4 L 01/11/18 08:15: PT 14.7 H, INR 1.44 H Assessment and Plan (1) Acute delirium Current visit: Yes Status: Acute Category: Medical Code(s): R41.0 - Disorientation, unspecified (2) Dementia Current visit: Yes Status: Acute Category: Medical Code(s): F03.90 - Unspecified dementia without behavioral disturbance (3) Hematoma following procedure Current visit: Yes Status: Acute Category: Medical no need for acute intervention serial exams serial H/H (4) Mechanical heart valve present Current visit: Yes Status: Acute Category: Surgical Code(s): Z95.2 - Presence of prosthetic heart valve (5) Subtherapeutic anticoagulation Current visit: Yes Status: Acute Category: Medical Code(s): Z51.81 - Encounter for therapeutic drug level monitoring; Z79.01 - termite control service representative (current) use of anticoagulants (6) shelter (current) use of anticoagulants Current visit: No Status: Acute Category: Medical Code(s): Z79.01 - termite control service representative (current) use of anticoagulants
[2018-01-11 18:14] LABS: Basophils % 0.3 % (0.1-2.0); Eosinophils # 0.1 K/mm3 (0.0-0.4); Eosinophils % 0.9 % (0.1-12.0); Hematocrit 28.4 % (37.0-47.0); Hemoglobin 9.3 g/dL (12.2-16.2); Lymphocytes # 1.8 K/mm3 (0.7-4.5); Lymphocytes % 20.5 K/mm3 (10-50); Mean Corpuscular HGB Conc 32.9 g/dL (31.8-35.4); Mean Corpuscular Hemoglobin 33.7 pg (27.0-31.2); Mean Corpuscular Volume 102.2 fl (81-99); Mean Platelet Volume 9.6 fl (7.4-10.4); Monocytes # 0.5 K/mm3 (0.1-1.0); Monocytes % 5.3 % (1.7-9.3); Neutrophils # 6.4 K/mm3 (1.8-7.8); Neutrophils % 73.1 % (37.0-80.0); Platelet Count 124 K/mm3 (142-424); Red Blood Count 2.78 M/mm3 (4.20-5.40); Red Cell Distribution Width 13.6 % (11.5-17.5); White Blood Count 8.7 K/mm3 (4.8-10.8)
--- NOTE | 2018-01-12 06:37 | Progress Note ---
Subjective Patient reports: no new complaints Exam Vital signs and Labs for Last 24 Hours: Temp Pulse Resp BP Pulse Ox 97.9 F 60 14 118/50 98 01/12/18 04:00 01/12/18 04:00 01/12/18 04:00 01/12/18 04:00 01/12/18 04:00 Laboratory Results - last 24 hr 01/11/18 08:15: WBC 7.2 D, RBC 2.68 L, Hgb 9.0 L, Hct 27.3 L, MCV 101.9 H, MCH 33.5 H, MCHC 32.9, RDW 13.4, Plt Count 122 L, MPV 8.6, Neut % (Auto) 75.8, Lymph % (Auto) 17.1, [place] % (Auto) 6.2, Eos % (Auto) 0.7, Baso % (Auto) 0.2, Neut # (Auto) 5.4, Lymph # (Auto) 1.2, [place] # (Auto) 0.5, Eos # (Auto) 0.1, Baso # (Auto) 0.0 01/11/18 08:15: Sodium 142, Potassium 3.9, Chloride 105, Carbon Dioxide 31, Anion Gap 9.9, BUN 19 H D, Creatinine 1.15 H, Estimated Creat Clear 35, Estimated GFR 45 L, Est GFR ( Amer) 55 L, Glucose 137 H, Calcium 8.4 L 01/11/18 08:15: PT 14.7 H, INR 1.44 H 01/11/18 18:02: WBC 8.7, RBC 2.78 L, Hgb 9.3 L, Hct 28.4 L, MCV 102.2 H, MCH 33.7 H, MCHC 32.9, RDW 13.6, Plt Count 124 L, MPV 9.6, Neut % (Auto) 73.1, Lymph % (Auto) 20.5, [place] % (Auto) 5.3, Eos % (Auto) 0.9, Baso % (Auto) 0.3, Neut # (Auto) 6.4, Lymph # (Auto) 1.8, [place] # (Auto) 0.5, Eos # (Auto) 0.1, Baso # (A uto) 0.0 I & O for Last 24 hours: Intake & Output 01/09/18 01/10/18 01/11/18 01/12/18 11:59 11:59 11:59 11:59 Intake Total 360 / 360 240 / 240 Output Total 200 / 200 Balance 160 / 160 240 / 240 Weight 118 lb 124 lb 3 oz 124 lb 3.017 oz - Constitutional no acute distress - *Routine Abdominal Exam Present: soft Comments: no expansion of hematomas Progress Note: A&P (1) Acute delirium Status: Acute Current Visit: Yes (2) Dementia Status: Acute Current Visit: Yes (3) Hematoma following procedure Status: Acute Assessment and plan: stable f/u pending HGB Current Visit: Yes (4) Mechanical heart valve present Status: Acute Current Visit: Yes (5) Subtherapeutic anticoagulation Status: Acute Current Visit: Yes (6) skilled nursing (current) use of anticoagulants Status: Acute Current Visit: No
[2018-01-12 06:57] LABS: INR 1.67 (0.9-1.1)
[2018-01-12 07:09] LABS: Basophils % 0.1 % (0.1-2.0); Eosinophils # 0.1 K/mm3 (0.0-0.4); Eosinophils % 0.4 % (0.1-12.0); Hematocrit 25.2 % (37.0-47.0); Hemoglobin 8.5 g/dL (12.2-16.2); Lymphocytes # 1.7 K/mm3 (0.7-4.5); Lymphocytes % 16.3 K/mm3 (10-50); Mean Corpuscular HGB Conc 33.5 g/dL (31.8-35.4); Mean Corpuscular Hemoglobin 33.9 pg (27.0-31.2); Mean Platelet Volume 8.3 fl (7.4-10.4); Monocytes # 0.7 K/mm3 (0.1-1.0); Monocytes % 7.1 % (1.7-9.3); Neutrophils # 7.9 K/mm3 (1.8-7.8); Neutrophils % 76.1 % (37.0-80.0); Platelet Count 139 K/mm3 (142-424); Red Cell Distribution Width 13.5 % (11.5-17.5); White Blood Count 10.4 K/mm3 (4.8-10.8)
[2018-01-12 08:28] VITALS: BP 97/44
--- NOTE | 2018-01-12 08:43 | Discharge Summary ---
General - General Admission date:: 01/11/18 Discharge date: 01/12/18 HPI HPI: This is an 82-year-old female who was underwent laparoscopic cholecystectomy. She withheld her Coumadin and was bridged with Lovenox for this procedure. She presented to the emergency department with abdominal pain and was found to have multiple abdominal wall hematomas. She was admitted to her primary service and surgical consultation ordered. 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 She had been appropriately bridged with Lovenox therapy and had been at home getting Lovenox injections and began to have abdominal pain and swelling and came to the emergency department yesterday. Emergency department workup was lengthy and included CT scan, hemoglobin levels and INR levels which showed significant abdominal wall hematomas but no evidence of internal GI or surgical pathology. She was found to have hemoglobin of 12 initially and an INR 1.5. She was given several doses of morphine in the ER for pain which resulted in hypotensive response. Because of this she was admitted to hospital overnight for evaluation of her significant comorbidities, further careful observation of her anticoagulation status and evaluation of her hypotension. This morning her blood pressure has improved but she had significant problems with ing through the night and received a dose of Risperdal this morning that helped her somewhat. This morning she is anxious, angry and somewhat paranoid about her hospital stay. No family is present this morning. Hospital Course Hospital Course: Patient was admitted to acute care for close monitoring of hemoglobin and INR. Serial H/H's were obtained which have shown a gradual decline, some of which is likely dilutional from rehydration. HGB noted at 8.5 this morning. She has been given Lovenox bridge therapy and coumadin has been restarted. INR this morning 1.67. She had some increased confusion and agitation. She was given a dose of risperdal and started on PRN ativan. This morning she is tearful and insistent on going home which will help in stabilization her mood/confusion. Discharge home with home health. PT/OT evaluate and treat. Continue Lovenox as directed by [facility]. Coumadin 4mg po today and then Coumadin 3mg po daily until seen in the [facility] on Tuesday. PT/INR and CBC in the am, home health to draw. FU with Dr. Burk and [facility] on Tuesday 01/16. Objective Vital signs: Temp Pulse Resp BP Pulse Ox 98.1 F 69 20 97/44 98 01/12/18 08:00 01/12/18 08:00 01/12/18 08:00 01/12/18 08:00 01/12/18 08:00 Narrative: Alert and oriented x2, no acute neuro deficits. Tearful, stating "I just want out of here." Rate and rhythm regular, mechanical click. No LE edema. Lung sounds clear and equal. Abdomen with ecchymosis noted in all quads, large hematoma on left, moderately tender. Steri-strips in place from recent sammy cystectomy. Results Labs on day of discharge: Labs from last 24 hours 01/12/18 01/12/18 01/11/18 06:15 06:15 18:02 WBC 10.4 8.7 RBC 2.50 L 2.78 L Hgb 8.5 L 9.3 L Hct 25.2 L 28.4 L MCV 101.0 H 102.2 H MCH 33.9 H 33.7 H MCHC 33.5 32.9 RDW 13.5 13.6 Plt Count 139 L 124 L MPV 8.3 9.6 Neut % (Auto) 76.1 73.1 Lymph % (Auto) 16.3 20.5 [place] % (Auto) 7.1 5.3 Eos % (Auto) 0.4 0.9 Baso % (Auto) 0.1 0.3 Neut # (Auto) 7.9 H 6.4 Lymph # (Auto) 1.7 1.8 [place] # (Auto) 0.7 0.5 Eos # (Auto) 0.1 0.1 Baso # (Auto) 0.0 0.0 PT 17.0 H INR 1.67 H Sodium Potassium Chloride Carbon Dioxide Anion Gap BUN Creatinine Estimated Creat Clear Estimated GFR Est GFR ( Amer) Glucose Calcium 01/11/18 01/11/18 01/11/18 08:15 08:15 08:15 WBC 7.2 D RBC 2.68 L Hgb 9.0 L Hct 27.3 L MCV 101.9 H MCH 33.5 H MCHC 32.9 RDW 13.4 Plt Count 122 L MPV 8.6 Neut % (Auto) 75.8 Lymph % (Auto) 17.1 [place] % (Auto) 6.2 Eos % (Auto) 0.7 Baso % (Auto) 0.2 Neut # (Auto) 5.4 Lymph # (Auto) 1.2 [place] # (Auto) 0.5 Eos # (Auto) 0.1 Baso # (Auto) 0.0 PT 14.7 H INR 1.44 H Sodium 142 Potassium 3.9 Chloride 105 Carbon Dioxide 31 Anion Gap 9.9 BUN 19 H D Creatinine 1.15 H Estimated Creat Clear 35 Estimated GFR 45 L Est GFR ( Amer) 55 L Glucose 137 H Calcium 8.4 L DS: Diagnosis - Discharge Diagnosis (1) Acute delirium Status: Resolved (2) Dementia Status: Chronic (3) Hematoma following procedure Status: Acute (4) Mechanical heart valve present Status: Chronic (5) Subtherapeutic anticoagulation Status: Acute (6) senior care (current) use of anticoagulants Status: Chronic Discharge Plan - Patient Discharge Instructions ACTIVITY: Continue current activity DIET: continue same diet - Follow up Plan Follow up with: Nazario Burk MD [Primary Care Provider] - 01/16/18 Unknown provider or service follow up:: [facility] 01/16/18 Dr. Hdz in one week Disposition: Home Health Service Home Medications: Home Medications Medication Instructions Recorded Confirmed Type ascorbic acid (vitamin C) 500 mg 1 gm PO DAILY tab 06/13/17 01/11/18 History tablet calcium carbonate-vitamin D3 600 1 cap PO DAILY 06/13/17 01/10/18 History mg calcium-200 unit capsule docusate sodium 250 mg capsule 250 mg PO DAILY 06/13/17 01/11/18 History metoprolol tartrate 25 mg tablet 25 mg PO BID 06/13/17 01/10/18 History nitroglycerin 0.4 mg sublingual 0.4 mg SUBLINGUAL Q5MINP PRN 06/13/17 01/11/18 History tablet simvastatin 40 mg tablet 40 mg PO HS 06/13/17 01/11/18 History tramadol 37.5 mg-acetaminophen 325 1 tab PO TID 06/13/17 01/11/18 History mg tablet Losartan Potassium [Cozaar] 50 mg PO DAILY 12/09/17 01/11/18 History Donepezil HCl [Aricept 5mg] 5 mg PO HS 01/11/18 01/11/18 History Warfarin Sodium 3 mg PO DAILY 01/11/18 01/11/18 History Prescriptions/Medication Reconciliation: New Enoxaparin Sodium [Lovenox 60mg/0.6mL syringe] 55 mg SQ Q12 #6 syringe Continue calcium carbonate-vitamin D3 600 mg calcium-200 unit capsule 1 cap PO DAILY metoprolol tartrate 25 mg tablet 25 mg PO BID nitroglycerin 0.4 mg sublingual tablet 0.4 mg SUBLINGUAL Q5MINP PRN PRN Reason: Chest Pain simvastatin 40 mg tablet 40 mg PO HS docusate sodium 250 mg capsule 250 mg PO DAILY tramadol 37.5 mg-acetaminophen 325 mg tablet 1 tab PO TID ascorbic acid (vitamin C) 500 mg tablet 1 gm PO DAILY tab Losartan Potassium [Cozaar] 50 mg PO DAILY Warfarin Sodium 3 mg PO DAILY Donepezil HCl [Aricept 5mg] 5 mg PO HS Other Amb Orders: Complete Blood Count Auto Diff Time Frame: 1 Day, Facility: [facility], Location: Laboratory Prothrombin Time INR Time Frame: 1 Day, Facility: [facility], Location: Laboratory
== END 2018-01-12 10:35 | disposition home health service (06) ==
LOC: ER 10:39 → 2ND 10:39
PROVIDERS: ADMIT Internal Medicine Adolescent Medicine; ATTEND Internal Medicine Adolescent Medicine

== ENCOUNTER 2018-01-13 14:04 | Outpatient (CLI) | payer MEDICARE, BC, SELFPAY ==
[2018-01-13 14:14] VITALS: BMI 21.2
[2018-01-13 14:30] LABS: Hemoglobin 7.8 g/dL (12.2-16.2)
[2018-01-13 14:31] LABS: Hematocrit 23.5 % (37.0-47.0)
[2018-01-13 14:36] LABS: Prothrombin Time 23.1 seconds (9.4-11.8)
--- NOTE | 2018-01-13 17:34 | PC.NURSE ---
1700 - WAS NOTIFIED BY LAB THAT PT HAS ANTIBODIES AND BLOOD HAS TO BE DELIVERED HERE BY [facility] AND WOULD NOT BE AVAILABLE UNTIL TOMORROW. PT SCHEDULED TO RETURN TOMORROW FOR 1 UNIT PRBC'S. IV LEFT IN RIGHT FOREARM AND COVERED WITH COBAN. INSTRUCTED TO KEEP SITE CLEAN AND DRY.
== END 2018-01-13 17:25 | disposition home or self-care (01) ==
LOC: INF 14:05
PROVIDERS: Family Provider Internal Medicine Adolescent Medicine; PCP Internal Medicine Adolescent Medicine; Visit Provider Internal Medicine Adolescent Medicine
DX: Z51.81 Encounter for therapeutic drug level monitoring (principal); Z79.01 Long term (current) use of anticoagulants; Z95.2 Presence of prosthetic heart valve
CPT/HCPCS: 36415; 85014; 85018; 85610; 86850; 86870

== ENCOUNTER → 2018-01-14 12:24 | Outpatient (CLI) | payer MEDICARE, BC, SELFPAY ==
[2018-01-14] VITALS (23 sets, daily range): BP systolic 100–127; BP diastolic 41–63; PULSE 77–103; RESP 18–20; TEMP 36.6–37.3; O2SAT 95–99; BMI 21.2
[2018-01-14 17:59] LABS: Hemoglobin 7.1 g/dL (12.2-16.2)
[2018-01-14 18:00] LABS: Hematocrit 21.2 % (37.0-47.0)
--- NOTE | 2018-01-14 22:46 | PC.NURSE ---
Second unit of PRBC's verified by Blessing Zee RN and Cesar Saldana RN. Verified again with Cesar Saldana RN for documentation. Second Unit verified at 1849 and started by Blessing Zee at 1854. Blood transfusion completed at 2127. One hour post VS completed. One hour post H&H obtained. Awaiting results to notify MD. Pt tolerated transfusion well. Has been up to BSC x2. Pt is resting in bed at this time. VSS. Will continue to monitor.
[2018-01-14 22:56] LABS: Hematocrit 25.9 % (37.0-47.0); Hemoglobin 8.7 g/dL (12.2-16.2)
--- NOTE | 2018-01-14 23:42 | PC.NURSE ---
Post H&H reported to MD. Hbg 8.7, Hct 25.9. Pt may go home per MD. BP 117/55, P 85, T 98.8, O2 96%. Pt left floor accompanied by family and staff in to be transported in family vehicle to home. It was noted that pt has family at home to help her.
--- NOTE | 2018-01-15 16:11 | PC.NURSE ---
LATE ENTRY: UPON ARRIVAL THIS AM I WAS NOTIFIED THAT THE VERIFICATION OF THE SECOND UNIT OF BLOOD FOR THIS PATIENT WITH Atiya LAUREN RN DID NOT DOCUMENT CORRECTLY IN THE COMPUTER, I DID VERIFY BLOOD WITH Atiya LAUREN RN AND WE BOTH ACKNOWLEDGED IN THE COMPUTER. DR. ALDRIDGE WAS NOTIFIED OF THE POST H&H FROM THE 1ST UNIT AND ADVISED TO INITIATE THE 2ND UNIT. THE SECOND UNIT WAS VERIFIED BY MYSELF AND ALSO KRUPA LAUREN RN. REPORT WAS GIVEN TO KRUPA LAUREN RN ALONG WITH Jace LEVY RN AND NURSE DORIS HOGUE IN ORIENTATION. SHAHNAZ ZHOU, MSN, RN
== END ==
PROVIDERS: Family Provider Internal Medicine Adolescent Medicine; PCP Internal Medicine Adolescent Medicine; Visit Provider Internal Medicine Adolescent Medicine
DX: D64.9 Anemia, unspecified (principal)
CPT/HCPCS: 36415; 36430; 85014; 85018; P9016

== ENCOUNTER → 2018-01-16 10:55 | Outpatient (CLI) | payer MEDICARE, BC, SELFPAY ==
[2018-01-16 11:28] LABS: Basophils % 0.1 % (0.1-2.0); Eosinophils # 0.1 K/mm3 (0.0-0.4); Eosinophils % 0.7 % (0.1-12.0); Hematocrit 24.2 % (37.0-47.0); Hemoglobin 8.6 g/dL (12.2-16.2); Lymphocytes # 1.1 K/mm3 (0.7-4.5); Lymphocytes % 14.9 K/mm3 (10-50); Mean Corpuscular HGB Conc 35.6 g/dL (31.8-35.4); Mean Corpuscular Hemoglobin 35.7 pg (27.0-31.2); Mean Corpuscular Volume 100.1 fl (81-99); Mean Platelet Volume 8.9 fl (7.4-10.4); Monocytes # 0.4 K/mm3 (0.1-1.0); Neutrophils # 5.8 K/mm3 (1.8-7.8); Neutrophils % 78.3 % (37.0-80.0); Platelet Count 178 K/mm3 (142-424); Red Blood Count 2.42 M/mm3 (4.20-5.40); Red Cell Distribution Width 14.2 % (11.5-17.5); White Blood Count 7.4 K/mm3 (4.8-10.8)
[2018-01-16 11:33] LABS: Activated Partial Thrombo Time 29.2 seconds (23.6-34.0); INR 1.14 (0.9-1.1); Prothrombin Time 11.7 seconds (9.4-11.8)
[2018-01-16 12:24] LABS: Alanine Aminotransferase 24 U/L (12-78); Albumin Level 2.7 gm/dL (3.4-5.0); Albumin/Globulin Ratio 0.8 (1.1-1.8); Alkaline Phosphatase 65 U/L (46-116); Anion Gap 11.1 mEq/L (5-15); Aspartate Amino Transferase 25 U/L (15-37); Bilirubin,Total 1.4 mg/dL (0.2-1.0); Blood Urea Nitrogen 15 mg/dL (7-18); Calcium 8.3 mg/dL (8.5-10.1); Carbon Dioxide 27 mmol/L (21.0-32.0); Chloride 106 mmol/L (98-107); Creatinine,Serum 0.72 mg/dL (0.55-1.02); Estimated Glomerular Filt Rate 78 ml/min (>60); GFR (African American) 94 ML/MIN (>60); Globulin 3.2 gm/dl (1.3-3.2); Glucose 113 mg/dL (74-106); Potassium 4.1 mmoL/L (3.5-5.1); Sodium 140 mmol/L (136-145); Total Protein,Serum 5.9 gm/dL (6.4-8.2)
== END ==
PROVIDERS: PCP Internal Medicine Adolescent Medicine; Visit Provider Internal Medicine Adolescent Medicine
DX: Z51.81 Encounter for therapeutic drug level monitoring (principal); Z79.01 Long term (current) use of anticoagulants; Z95.2 Presence of prosthetic heart valve; D50.0 Iron deficiency anemia secondary to blood loss (chronic); M25.562 Pain in left knee
CPT/HCPCS: 36415; 80053; 85025; 85610; 85730

== ENCOUNTER → 2018-01-20 11:32 | Outpatient (CLI) | payer MEDICARE, BC, SELFPAY ==
[2018-01-20 11:58] LABS: Basophils % 0.6 % (0.1-2.0); Eosinophils # 0.1 K/mm3 (0.0-0.4); Eosinophils % 1.6 % (0.1-12.0); Hematocrit 26.5 % (37.0-47.0); Hemoglobin 8.8 g/dL (12.2-16.2); Lymphocytes # 0.9 K/mm3 (0.7-4.5); Lymphocytes % 20.5 K/mm3 (10-50); Mean Corpuscular HGB Conc 33.1 g/dL (31.8-35.4); Mean Corpuscular Hemoglobin 33.5 pg (27.0-31.2); Mean Corpuscular Volume 101.1 fl (81-99); Mean Platelet Volume 8.8 fl (7.4-10.4); Monocytes # 0.4 K/mm3 (0.1-1.0); Monocytes % 8.7 % (1.7-9.3); Neutrophils # 2.9 K/mm3 (1.8-7.8); Neutrophils % 68.6 % (37.0-80.0); Platelet Count 268 K/mm3 (142-424); Red Blood Count 2.62 M/mm3 (4.20-5.40); Red Cell Distribution Width 14.5 % (11.5-17.5); White Blood Count 4.2 K/mm3 (4.8-10.8)
[2018-01-20 12:06] LABS: INR 2.91 (0.9-1.1); Prothrombin Time 29.1 seconds (9.4-11.8)
== END ==
PROVIDERS: Nurse Practitioner Family; Family Provider Internal Medicine Adolescent Medicine; PCP Internal Medicine Adolescent Medicine; Visit Provider Internal Medicine Adolescent Medicine
DX: Z51.81 Encounter for therapeutic drug level monitoring (principal); Z79.01 Long term (current) use of anticoagulants
CPT/HCPCS: 36415; 85025; 85610

== ENCOUNTER 2018-01-26 10:22 | Outpatient (CLI) | payer MEDICARE, BC, SELFPAY ==
[2018-01-26 13:10] LABS: PHA INR Fingerstick 2.7 (0.9-1.1)
== END 2018-01-26 13:12 | disposition home or self-care (01) ==
PROVIDERS: PCP Internal Medicine Adolescent Medicine; Visit Provider Internal Medicine Adolescent Medicine
DX: Z51.81 Encounter for therapeutic drug level monitoring (principal); Z79.01 Long term (current) use of anticoagulants; Z95.2 Presence of prosthetic heart valve
CPT/HCPCS: 85610; 99211; G0463

== ENCOUNTER → 2018-02-08 10:58 | Outpatient (CLI) | payer MEDICARE, BC, SELFPAY ==
[2018-02-08 11:33] LABS: INR 2.45 (0.9-1.1); Prothrombin Time 24.6 seconds (9.4-11.8)
== END ==
PROVIDERS: PCP Internal Medicine Adolescent Medicine; Visit Provider Internal Medicine Adolescent Medicine
DX: Z51.81 Encounter for therapeutic drug level monitoring (principal); Z79.01 Long term (current) use of anticoagulants
CPT/HCPCS: 36415; 85610

== ENCOUNTER 2018-02-20 10:45 | Outpatient (CLI) | payer MEDICARE, BC, SELFPAY ==
[2018-02-20 11:50] LABS: PHA INR Fingerstick 2.6 (0.9-1.1)
== END 2018-02-20 11:52 | disposition home or self-care (01) ==
PROVIDERS: Family Provider Internal Medicine Adolescent Medicine; PCP Internal Medicine Adolescent Medicine; Visit Provider Internal Medicine Adolescent Medicine
DX: Z51.81 Encounter for therapeutic drug level monitoring (principal); Z79.01 Long term (current) use of anticoagulants; Z95.2 Presence of prosthetic heart valve
CPT/HCPCS: 85610; 99211; G0463

== ENCOUNTER → 2018-03-10 11:52 | Outpatient (CLI) | payer MEDICARE, BC, SELFPAY ==
--- NOTE | 2018-03-10 12:02 | XR_ITS ---
XR chest 2V HISTORY: Shortness of breath with cough and fever ITS.REASON: VIRAL URI ORDERING PHYSICIAN: Edinson Gonzalez MD PATIENT AGE: 82 years COMPARISON: None FINDINGS: There has been a prior median sternotomy with aortic valve replacement. There is mild cardiomegaly without failure. Polar pacemaker is present from a left subclavian approach. The lungs are clear of acute infiltrate. Degenerative changes are present in the thoracic spine with mild kyphosis. IMPRESSION: Mild cardiomegaly with postsurgical changes, no acute finding
== END ==
PROVIDERS: PCP Internal Medicine Adolescent Medicine; Visit Provider Internal Medicine Adolescent Medicine
DX: J06.9 Acute upper respiratory infection, unspecified (principal)
CPT/HCPCS: 71046

== ENCOUNTER 2018-03-13 10:41 | Outpatient (CLI) | payer MEDICARE, OTHER, SELFPAY ==
[2018-03-13 13:55] LABS: PHA INR Fingerstick 2.6 (0.9-1.1)
== END 2018-03-13 13:59 | disposition home or self-care (01) ==
LOC: ACC 10:45
PROVIDERS: PCP Internal Medicine Adolescent Medicine; Visit Provider Internal Medicine Adolescent Medicine
DX: Z51.81 Encounter for therapeutic drug level monitoring (principal); Z79.01 Long term (current) use of anticoagulants; Z95.2 Presence of prosthetic heart valve
CPT/HCPCS: 85610; 99211; G0463

== ENCOUNTER → 2018-03-15 11:33 | Outpatient (CLI) | payer MEDICARE, SELFPAY ==
[2018-03-15 12:50] LABS: Basophils % 0.3 % (0.1-2.0); Eosinophils # 0.1 K/mm3 (0.0-0.4); Eosinophils % 1.6 % (0.1-12.0); Hematocrit 38.7 % (37.0-47.0); Hemoglobin 12.4 g/dL (12.2-16.2); Lymphocytes # 1.2 K/mm3 (0.7-4.5); Lymphocytes % 22.2 % (10-50); Mean Corpuscular HGB Conc 32.1 g/dL (31.8-35.4); Mean Corpuscular Hemoglobin 32.6 pg (27.0-31.2); Mean Corpuscular Volume 101.4 fl (81-99); Mean Platelet Volume 8.3 fl (7.4-10.4); Monocytes # 0.3 K/mm3 (0.1-1.0); Monocytes % 5.5 % (1.7-9.3); Neutrophils # 3.8 K/mm3 (1.8-7.8); Neutrophils % 70.4 % (37.0-80.0); Platelet Count 140 K/mm3 (142-424); Red Blood Count 3.81 M/mm3 (4.20-5.40); Red Cell Distribution Width 14.1 % (11.5-17.5); White Blood Count 5.4 K/mm3 (4.8-10.8)
[2018-03-15 13:06] LABS: Anion Gap 11.3 mEq/L (5-15); Blood Urea Nitrogen 13 mg/dL (7-18); Calcium 9.4 mg/dL (8.5-10.1); Carbon Dioxide 32 mmol/L (21.0-32.0); Chloride 103 mmol/L (98-107); Creatinine,Serum 0.75 mg/dL (0.55-1.02); Estimated Glomerular Filt Rate 74 ml/min (>60); GFR (African American) 90 ML/MIN (>60); Glucose 101 mg/dL (74-106); Potassium 4.3 mmoL/L (3.5-5.1); Sodium 142 mmol/L (136-145)
== END ==
PROVIDERS: Visit Provider Internal Medicine Adolescent Medicine
DX: D50.0 Iron deficiency anemia secondary to blood loss (chronic) (principal); I10 Essential (primary) hypertension
CPT/HCPCS: 36415; 80048; 85025

== ENCOUNTER 2018-04-03 10:11 | Outpatient (CLI) | payer MEDICARE, OTHER, SELFPAY ==
[2018-04-03 16:01] LABS: PHA INR Fingerstick 2.6 (0.9-1.1)
== END 2018-04-03 16:04 | disposition home or self-care (01) ==
LOC: ACC 10:13
PROVIDERS: PCP Internal Medicine Adolescent Medicine; Visit Provider Internal Medicine Adolescent Medicine
DX: Z51.81 Encounter for therapeutic drug level monitoring (principal); Z79.01 Long term (current) use of anticoagulants; Z95.2 Presence of prosthetic heart valve
CPT/HCPCS: 85610; 99211; G0463

== ENCOUNTER 2018-04-14 11:30 | Outpatient (CLI) | payer MEDICARE, OTHER, SELFPAY ==
[2018-04-14 12:18] LABS: PHA INR Fingerstick 2.8 (0.9-1.1)
== END 2018-04-14 13:46 | disposition home or self-care (01) ==
LOC: ACC 11:32
PROVIDERS: PCP Internal Medicine Adolescent Medicine; Visit Provider Internal Medicine Adolescent Medicine
DX: Z51.81 Encounter for therapeutic drug level monitoring (principal); Z79.01 Long term (current) use of anticoagulants; Z95.2 Presence of prosthetic heart valve
CPT/HCPCS: 85610; 99211; G0463

== ENCOUNTER 2018-04-17 14:53 | Observation (INO) ==
[2018-04-17 17:33] LABS: Basophils % 0.5 % (0.1-2.0); Eosinophils # 0.3 K/mm3 (0.0-0.4); Hematocrit 40.9 % (37.0-47.0); Hemoglobin 13.6 g/dL (12.2-16.2); Lymphocytes # 1.3 K/mm3 (0.7-4.5); Lymphocytes % 19.5 % (10-50); Mean Corpuscular HGB Conc 33.1 g/dL (31.8-35.4); Mean Corpuscular Hemoglobin 33.3 pg (27.0-31.2); Mean Corpuscular Volume 100.4 fl (81-99); Mean Platelet Volume 8.4 fl (7.4-10.4); Monocytes # 0.4 K/mm3 (0.1-1.0); Monocytes % 6.7 % (1.7-9.3); Neutrophils # 4.4 K/mm3 (1.8-7.8); Neutrophils % 68.3 % (37.0-80.0); Platelet Count 123 K/mm3 (142-424); Red Blood Count 4.08 M/mm3 (4.20-5.40); Red Cell Distribution Width 13.7 % (11.5-17.5); White Blood Count 6.4 K/mm3 (4.8-10.8)
[2018-04-17 17:46] LABS: Albumin Level 4.1 gm/dL (3.4-5.0); Anion Gap 13.1 mEq/L (5-15); Bilirubin,Total 0.8 mg/dL (0.2-1.0); C-Reactive Protein 3.5 mg/L (0.0-0.9); Calcium 9.5 mg/dL (8.5-10.1); Globulin 4.3 gm/dl (1.3-3.2); INR 2.09 (0.9-1.1); Potassium 4.1 mmoL/L (3.5-5.1); Prothrombin Time 21.1 seconds (9.4-11.8); Total Protein,Serum 8.4 gm/dL (6.4-8.2)
[2018-04-17 19:36] LABS: Erythrocyte Sedimentation Rate 69 mm/hr (0-30)
--- NOTE | 2018-04-17 21:46 | History & Physical Report ---
*Admission Date: 04/17/18 *Chief complaint: back pain, leg pain, difficulty ambulating *History of present illness: 82 yr old female with PMH significant for osteoporosis, aortic valve replacement, pacemaker, presented to clinic accompanied by her daughter with complaints of back pain, bilateral hip pain and difficulty ambulating. She reports onset of nagging low back pain about 2 weeks ago but significantly worse in the past 72 hours. Has had difficulty maneuvering around her home and has essentially been propelling herself seated on a rolling walker with seat. She denies trauma. She is on tramadol PRN for other diffuse arthralgias and reports that this typically makes her pain manageable but she has not gotten any relief in the past few days. At time of exam, she was felt to have intractable pain in setting of physical debility/frailty and osteoporosis and was admitted for IV analgesics and further diagnostics. [facility] History I have reviewed the patient's past medical history: Yes Medical History: Reports:: Arrhythmia, Dementia, Hypertension, Internal Pacemaker, Osteoporosis, Valvular Heart Disease Denies:: Cancer, Diabetes Mellitus Type 1, Diabetes Mellitus Type 2, MRSA, Seizures Other Medical History: Reports: Cataracts. Denies: Blood Transfusion Reaction Laterality Cases: Bilateral: Cataract, Myringotomy (Ear Tubes) Other Surgeries: Yes: Cholecystectomy, Colonoscopy, Hysterectomy-Total, Hysterectomy-Partial, Pacemaker, Other Amputation: No Fractures: No - *Social History Educational Level: Completed High School Smoking Status: Never smoker Alcohol Intake: never Alcohol Intake Frequency:: other Substance Use Type: denies use Occupational Status: retired Housing: house Household Members: none - Psychiatric History Expresses thoughts of harming self/others: None Suicide Plan Description: No Plan *Family Hx:: Coronary Artery Disease, Diabetes, Heart Attack Review of Systems - Review of Systems Review of systems:: pertinent systems reviewed and negative unless documented below - Constitutional Reports malaise, Denies fever(s) - Eyes Comments: wears glasses - ENT Reports abnormal hearing - *Cardiovascular Denies chest pain, Denies shortness of breath, Denies leg swelling - *Respiratory Denies cough, Denies shortness of breath - *Gastrointestinal Reports abdominal pain, Reports loose stools, Denies change in stools, Denies bright, red blood in stools, Denies nausea Comments: Cholecystectomy done about 2 months ago, complicated by postoperative hematoma. Pain steadily improving but still with mild lower abdominal pain and palpable hematoma - *Genitourinary Denies pelvic pain, Denies urinary urgency - *Musculoskeletal Reports abnormal walking, Reports joint pain, Reports back pain, Reports radiating pain into limb Comments: back pain, hip pain, bilateral, severe. Not improved with tramadol. Worse with hip flexion or back movement - Integumentary/Breasts Reports redness (on oral antibiotics for paronychia left 4th toe, improving) - *Neurologic Reports unsteadiness, Denies abnormal movements, Denies behavioral changes, Denies frequent falls - Psychiatric Reports memory loss (mild, on donepezil), Denies anxiety Meds Home Medications Medication Instructions Recorded Confirmed Type ascorbic acid (vitamin C) 500 mg 1 gm PO DAILY tab 06/13/17 04/17/18 History tablet docusate sodium 250 mg capsule 250 mg PO Q48H 06/13/17 04/17/18 History metoprolol tartrate 25 mg tablet 25 mg PO BID 06/13/17 04/17/18 History nitroglycerin 0.4 mg sublingual 0.4 mg SUBLINGUAL Q5MINP PRN 06/13/17 04/17/18 History tablet simvastatin 40 mg tablet 40 mg PO HS 06/13/17 04/17/18 History tramadol 37.5 mg-acetaminophen 325 1 tab PO TID 06/13/17 04/17/18 History mg tablet Losartan Potassium [Cozaar] 50 mg PO DAILY 12/09/17 04/17/18 History Donepezil HCl [Aricept 5mg] 5 mg PO HS 01/11/18 04/17/18 History Warfarin Sodium 3 mg PO DAILY 01/11/18 04/17/18 History Albuterol Sulfate [Proair Hfa 2 puffs IH QIDRT 04/17/18 04/17/18 History 90mcg/puff Inh] Calcium Carbonate/Vitamin D3 1 each PO DAILY 04/17/18 04/17/18 History [Calcium 600-Vit D3 400 Caplet] Mupirocin [Bactroban 2% Ointment 1 gm TOPICAL TID 04/17/18 04/17/18 History 22gm tube] Nitrofurantoin Monohyd/M-Cryst 100 mg PO TID 04/17/18 04/17/18 History [Nitrofurantoin [place]-Mcr 100 mg] cephALEXin [cephALEXin 500mg 500 mg PO TID 04/17/18 04/17/18 History capsule] Allergies Allergy/AdvReac Type Severity Reaction Status Date / Time Sulfa (Sulfonamide Allergy Severe Difficulty Verified 04/17/18 15:19 Antibiotics) Breathing [SULFA (SULFONAMIDE ANTIBIOTICS)] Exam Vital signs and Labs for Last 24 Hours: Temp Pulse Resp BP Pulse Ox 97.9 F 61 16 122/67 97 04/17/18 20:00 04/17/18 20:00 04/17/18 20:00 04/17/18 20:00 04/17/18 20:00 Laboratory Results - last 24 hr 04/17/18 17:10: WBC 6.4, RBC 4.08 L, Hgb 13.6, Hct 40.9, MCV 100.4 H, MCH 33.3 H , MCHC 33.1, RDW 13.7, Plt Count 123 L, MPV 8.4, Neut % (Auto) 68.3, Lymph % (Auto) 19.5, [place] % (Auto) 6.7, Eos % (Auto) 5.0, Baso % (Auto) 0.5, Neut # (Auto) 4.4, Lymph # (Auto) 1.3, [place] # (Auto) 0.4, Eos # (Auto) 0.3, Baso # (Auto) 0.0, ESR 69 H 04/17/18 17:10: PT 21.1 H, INR 2.09 H 04/17/18 17:10: Sodium 140, Potassium 4.1, Chloride 102, Carbon Dioxide 29, Anion Gap 13.1, BUN 17, Creatinine 0.76, Estimated Creat Clear 38, Estimated GFR 73, Est GFR ( Amer) 89, Glucose 101, Calcium 9.5, Magnesium 2.2, Total Bilirubin 0.8, AST 23, ALT 22, Alkaline Phosphatase 95, C-Reactive Protein 3.5 H , Total Protein 8.4 H D, Albumin 4.1, Globulin 4.3 H, Albumin/Globulin Ratio 1.0 L I & O for Last 24 hours: Intake & Output 04/15/18 04/16/18 04/17/18 04/18/18 11:59 11:59 11:59 11:59 Intake Total 240 / 240 Balance 240 / 240 Weight 118 lb - Constitutional moderate distress, thin Comments: frail, seated in wheelchair - *Routine HEENT Exam Head: Present: normocephalic, atraumatic Eye: Present: conjunctivae pink ENT: Present: mucous membranes moist - *Routine Neck Exam Present: supple - *Routine Respiratory Exam Present: CTA bilaterally - *Routine Cardiovascular Exam Present: RRR - *Routine Abdominal Exam Present: soft, normoactive bowel sounds, tenderness (mild, left lower quadrant, surgical scars noted), surgical scars. Absent: distended, rebound, guarding - *Routine Extremities Exam Present: edema (trace bilaterally, no discoloration with exception of that localized to left foot), pulses intact. Absent: calf tenderness, joint swelling Comments: Pain with hip flexion bilaterally. Unable to pick feet up to rest on foot rests of wheelchair due to increased back and hip pain - Routine Back/Spine/Pelvis Exam Back/Spine: Present: vertebral tenderness (lower lumbar spine), loss of lumbar lordosis, pain with flexion. Absent: warmth Pelvis: Present: SI joint tenderness (bilaterally) - *Routine Skin Exam Present: intact, normal turgor Comments: mild ecchymosis at the base of the left 4th toenail from paronychia that was opened last week. Ruborish discoloration over the lateral aspect, dorsal left foot. No warmth - *Routine Neurological Exam Present: alert, oriented X3 Assessment and Plan (1) Intractable low back pain Current visit: Yes Status: Acute Category: Medical Code(s): M54.5 - Low back pain Concern for compression fracture given known osteoporosis and frailty. Recommend pain relief with morphine and CT imaging. She is not a candidate for MRI due to pacemaker. (2) Lower extremity pain, bilateral Current visit: Yes Status: Acute Category: Medical Code(s): M79.604 - Pain in right leg; M79.605 - Pain in left leg see #1 (3) Cellulitis of left foot Current visit: Yes Status: Acute Category: Medical Code(s): L03.116 - Cellulitis of left lower limb visibly improved from time of onset. However, given mechanical valve, blood culture obtained and trend white blood cell counts and inflammatory markers if indicated (4) Mechanical heart valve present Current visit: Yes Status: Chronic Category: Surgical Code(s): Z95.2 - Presence of prosthetic heart valve Monitor INR during admission. Obtain echo if blood cultures positive or other evidence of systemic infection is evident - Assessment and plan all Dx Assessment and Plan for all problems:: see above
[2018-04-18 07:25] LABS: Basophils % 0.4 % (0.1-2.0); Eosinophils # 0.3 K/mm3 (0.0-0.4); Eosinophils % 4.8 % (0.1-12.0); Hematocrit 36.1 % (37.0-47.0); Lymphocytes # 1.2 K/mm3 (0.7-4.5); Lymphocytes % 22.6 % (10-50); Mean Corpuscular HGB Conc 33.5 g/dL (31.8-35.4); Mean Corpuscular Hemoglobin 33.1 pg (27.0-31.2); Mean Corpuscular Volume 98.7 fl (81-99); Mean Platelet Volume 8.2 fl (7.4-10.4); Monocytes # 0.4 K/mm3 (0.1-1.0); Monocytes % 6.5 % (1.7-9.3); Neutrophils # 3.5 K/mm3 (1.8-7.8); Neutrophils % 65.6 % (37.0-80.0); Platelet Count 102 K/mm3 (142-424); Red Blood Count 3.66 M/mm3 (4.20-5.40); Red Cell Distribution Width 13.7 % (11.5-17.5); White Blood Count 5.4 K/mm3 (4.8-10.8)
[2018-04-18 07:27] LABS: Anion Gap 11.7 mEq/L (5-15); Calcium 8.6 mg/dL (8.5-10.1); Potassium 3.7 mmoL/L (3.5-5.1)
[2018-04-18 07:39] LABS: Hemoglobin 12.2 g/dL (12.2-16.2)
--- NOTE | 2018-04-18 07:44 | Pharmacy Consult Notes ---
[facility] Pharmacy VTE Monitoring - Patient Demographics Admission date: 04/17/18 Report Date: 04/18/18 Time: 07:43 Allergies/Adverse Reactions: Patient Allergies Sulfa (Sulfonamide Antibiotics) [SULFA (SULFONAMIDE ANTIBIOTICS)] Allergy (Severe, Verified 04/17/18 15:19) Difficulty Breathing Height: 1.6 m Weight: 53.184 kg Patient Problems: Current Active Problems Mechanical heart valve present (Chronic) Intractable low back pain (Acute) Lower extremity pain, bilateral (Acute) Cellulitis of left foot (Acute) - VTE Risk Labs: VTE Related Lab Results Hgb 12.2 g/dL (12.2-16.2) D 04/18/18 07:15 Hct 36.1 % (37.0-47.0) L 04/18/18 07:15 Plt Count 102 K/mm3 (142-424) L 04/18/18 07:15 PT 21.1 seconds (9.4-11.8) H 04/17/18 17:10 INR 2.09 (0.9-1.1) H 04/17/18 17:10 BUN 15 mg/dL (7-18) 04/18/18 07:15 Creatinine 0.69 mg/dL (0.55-1.02) 04/18/18 07:15 Estimated Creat Clear 38 mL/min (50-200) 04/18/18 07:15 Was VTE Risk Assessment Performed: Yes VTE Score: 2 VTE Risk Level: Very Low Risk - Prophylaxis VTE Prophylaxis Ordered?: Yes Types of VTE Prophylaxis: TEDS Knee High Location of Applied Device: Bilateral Lower Extremeties - VTE Diagnosis Confirmed Treatment or plan recommended: Continue Current Treatment
--- NOTE | 2018-04-18 14:00 | Discharge Summary ---
General - General Admission date:: 04/17/18 Discharge date: 04/18/18 HPI HPI: 82 yr old female with PMH significant for osteoporosis, aortic valve replacement, pacemaker, presented to clinic accompanied by her daughter with complaints of back pain, bilateral hip pain and difficulty ambulating. She reports onset of nagging low back pain about 2 weeks ago but significantly worse in the past 72 hours. Has had difficulty maneuvering around her home and has essentially been propelling herself seated on a rolling walker with seat. She denies trauma. She is on tramadol PRN for other diffuse arthralgias and reports that this typically makes her pain manageable but she has not gotten any relief in the past few days. At time of exam, she was felt to have intractable pain in setting of physical debility/frailty and osteoporosis and was admitted for IV analgesics and further diagnostics. Hospital Course Hospital Course: Admitted to medicine for management of pain. CT demonstrated compression fracture of L3 endplate with Mild acute wedge compression changes of the superior endplate and retropulsion of the posterior superior aspect of L3 x 4 mm . Pain managed with tramadol, did not require IV pain meds. TOlerated regular diet. Ambulated independently. Assessed by PT, recommended home PT. Medically stable for DC home. Pain managed, no SOA, CP, Syncope. Initiated Alendronate. Plan for follow-up in clinic with DEXA as outpatient. Objective Vital signs: Temp Pulse Resp BP Pulse Ox 97.4 F L 60 20 167/82 H 95 04/18/18 08:00 04/18/18 08:00 04/18/18 08:00 04/18/18 08:00 04/18/18 08:00 no acute distress, thin - *Routine HEENT Exam Head: Present: normocephalic, atraumatic Eye: Present: EOMI, PERRL ENT: Present: mucous membranes moist - *Routine Neck Exam Present: supple. Absent: lymphadenopathy - *Routine Respiratory Exam Present: CTA bilaterally. Absent: prolonged expiratory phase, wheezes - *Routine Cardiovascular Exam Present: Normal S1, irregularly irregular - *Routine Abdominal Exam Present: soft, normoactive bowel sounds - *Routine Rectal Exam Patient deferred: visual exam - *Routine Exam Patient deferred: external exam - *Routine Extremities Exam Absent: cyanosis, clubbing, edema - *Routine Skin Exam Present: intact. Absent: cyanosis, erythema - *Routine Neurological Exam Present: alert, oriented X3. Absent: altered mental status Results Labs on day of discharge: Labs from last 24 hours 04/18/18 04/18/18 04/17/18 07:15 07:15 17:10 WBC 5.4 RBC 3.66 L Hgb 12.2 D Hct 36.1 L MCV 98.7 MCH 33.1 H MCHC 33.5 RDW 13.7 Plt Count 102 L MPV 8.2 Neut % (Auto) 65.6 Lymph % (Auto) 22.6 [place] % (Auto) 6.5 Eos % (Auto) 4.8 Baso % (Auto) 0.4 Neut # (Auto) 3.5 Lymph # (Auto) 1.2 [place] # (Auto) 0.4 Eos # (Auto) 0.3 Baso # (Auto) 0.0 ESR PT INR Sodium 140 140 Potassium 3.7 4.1 Chloride 105 102 Carbon Dioxide 27 29 Anion Gap 11.7 13.1 BUN 15 17 Creatinine 0.69 0.76 Estimated Creat Clear 38 38 Estimated GFR 82 73 Est GFR ( Amer) 99 89 Glucose 91 101 Calcium 8.6 9.5 Magnesium 2.2 Total Bilirubin 0.8 AST 23 ALT 22 Alkaline Phosphatase 95 C-Reactive Protein 3.5 H Total Protein 8.4 H D Albumin 4.1 Globulin 4.3 H Albumin/Globulin Ratio 1.0 L 04/17/18 04/17/18 17:10 17:10 WBC 6.4 RBC 4.08 L Hgb 13.6 Hct 40.9 MCV 100.4 H MCH 33.3 H MCHC 33.1 RDW 13.7 Plt Count 123 L MPV 8.4 Neut % (Auto) 68.3 Lymph % (Auto) 19.5 [place] % (Auto) 6.7 Eos % (Auto) 5.0 Baso % (Auto) 0.5 Neut # (Auto) 4.4 Lymph # (Auto) 1.3 [place] # (Auto) 0.4 Eos # (Auto) 0.3 Baso # (Auto) 0.0 ESR 69 H PT 21.1 H INR 2.09 H Sodium Potassium Chloride Carbon Dioxide Anion Gap BUN Creatinine Estimated Creat Clear Estimated GFR Est GFR ( Amer) Glucose Calcium Magnesium Total Bilirubin AST ALT Alkaline Phosphatase C-Reactive Protein Total Protein Albumin Globulin Albumin/Globulin Ratio DS: Diagnosis - Discharge Diagnosis (1) Intractable low back pain Status: Acute (2) Lower extremity pain, bilateral Status: Acute (3) Cellulitis of left foot Status: Acute (4) Mechanical heart valve present Status: Chronic Discharge Plan - Patient Discharge Instructions ACTIVITY: Ambulate as tolerated DIET: continue same diet Patient Instructions: DI for Cellulitis -- Adult, DI for Low Back Pain, Coumadin Vitamin K/ Diet, Coumadin Therapy Booklet - Follow up Plan Follow up with: Nazario Burk MD [Primary Care Provider] - Disposition: Home Health Service Home Medications: Home Medications Medication Instructions Recorded Confirmed Type ascorbic acid (vitamin C) 500 mg 1 gm PO DAILY tab 06/13/17 04/17/18 History tablet docusate sodium 250 mg capsule 250 mg PO Q48H 06/13/17 04/17/18 History metoprolol tartrate 25 mg tablet 25 mg PO BID 06/13/17 04/17/18 History nitroglycerin 0.4 mg sublingual 0.4 mg SUBLINGUAL Q5MINP PRN 06/13/17 04/17/18 History tablet simvastatin 40 mg tablet 40 mg PO HS 06/13/17 04/17/18 History Losartan Potassium [Cozaar] 50 mg PO DAILY 12/09/17 04/17/18 History Donepezil HCl [Aricept 5mg] 5 mg PO HS 01/11/18 04/17/18 History Warfarin Sodium 3 mg PO 1600 01/11/18 04/18/18 History Albuterol Sulfate [Proair Hfa 2 puffs IH QIDRT 04/17/18 04/17/18 History 90mcg/puff Inh] Mupirocin [Bactroban 2% Ointment 1 gm TOPICAL TID 04/17/18 04/17/18 History 22gm tube] Nitrofurantoin Monohyd/M-Cryst 100 mg PO TID 04/17/18 04/17/18 History [Nitrofurantoin [place]-Mcr 100 mg] cephALEXin [cephALEXin 500mg 500 mg PO TID 04/17/18 04/17/18 History capsule] Prescriptions/Medication Reconciliation: New Alendronate Sodium 10 mg PO DAILY 30 Days #30 tablet Continue metoprolol tartrate 25 mg tablet 25 mg PO BID nitroglycerin 0.4 mg sublingual tablet 0.4 mg SUBLINGUAL Q5MINP PRN PRN Reason: Chest Pain simvastatin 40 mg tablet 40 mg PO HS docusate sodium 250 mg capsule 250 mg PO Q48H ascorbic acid (vitamin C) 500 mg tablet 1 gm PO DAILY tab Losartan Potassium [Cozaar] 50 mg PO DAILY Warfarin Sodium 3 mg PO 1600 Nitrofurantoin Monohyd/M-Cryst [Nitrofurantoin [place]-Mcr 100 mg] 100 mg PO TID Mupirocin [Bactroban 2% Ointment 22gm tube] 1 gm TOPICAL TID cephALEXin [cephALEXin 500mg capsule] 500 mg PO TID Albuterol Sulfate [Proair Hfa 90mcg/puff Inh] 2 puffs IH QIDRT Donepezil HCl [Aricept 5mg] 5 mg PO HS Calcium Carbonate/Vitamin D3 [Calcium 600-Vit D3 400 Caplet] 1 each PO DAILY 30 Days #30 Changed Tramadol HCl/Acetaminophen [Ultracet Tablet] 1 tab PO QID #0
== END 2018-04-18 15:28 | disposition home health service (06) ==
LOC: 2ND
PROVIDERS: ADMIT Internal Medicine Adolescent Medicine; ATTEND Internal Medicine Adolescent Medicine
CPT/HCPCS: 36415; 72131; 80048; 80053; 83735; 85025; 85610; 85651; 86140; 87040; 97161; G0378

== ENCOUNTER → 2018-04-28 13:23 | Outpatient (CLI) | payer MEDICARE, BC, SELFPAY | PROVIDERS: PCP Internal Medicine Adolescent Medicine; Visit Provider Internal Medicine | DX: Z95.2 Presence of prosthetic heart valve (principal) | CPT/HCPCS: 93306 ==

== ENCOUNTER 2018-05-03 11:13 | Outpatient (CLI) | payer MEDICARE, BC, SELFPAY ==
[2018-05-03 11:35] LABS: PHA INR Fingerstick 2.7 (0.9-1.1)
== END 2018-05-03 11:36 | disposition home or self-care (01) ==
LOC: ACC 11:13
PROVIDERS: PCP Internal Medicine Adolescent Medicine; Visit Provider Internal Medicine Adolescent Medicine
DX: Z51.81 Encounter for therapeutic drug level monitoring (principal); Z79.01 Long term (current) use of anticoagulants; Z95.2 Presence of prosthetic heart valve
CPT/HCPCS: 85610; 99211; G0463

== ENCOUNTER 2018-06-02 10:57 | Outpatient (CLI) | payer MEDICARE, BC, SELFPAY ==
[2018-06-02 13:30] LABS: PHA INR Fingerstick 2.8 (0.9-1.1)
== END 2018-06-02 13:41 | disposition home or self-care (01) ==
PROVIDERS: PCP Internal Medicine Adolescent Medicine; Visit Provider Internal Medicine Adolescent Medicine
DX: Z51.81 Encounter for therapeutic drug level monitoring (principal); Z79.01 Long term (current) use of anticoagulants; Z95.2 Presence of prosthetic heart valve
CPT/HCPCS: 85610; 99211; G0463

== ENCOUNTER 2018-06-30 10:38 | Outpatient (CLI) | payer MEDICARE, BC, SELFPAY ==
[2018-06-30 16:01] LABS: PHA INR Fingerstick 2.7 (0.9-1.1)
== END 2018-06-30 16:12 | disposition home or self-care (01) ==
LOC: ACC 10:39
PROVIDERS: PCP Internal Medicine Adolescent Medicine; Visit Provider Internal Medicine Adolescent Medicine
DX: Z51.81 Encounter for therapeutic drug level monitoring (principal); Z79.01 Long term (current) use of anticoagulants; Z95.2 Presence of prosthetic heart valve
CPT/HCPCS: 85610; 99211; G0463

== ENCOUNTER 2018-07-28 10:42 | Outpatient (CLI) | payer MEDICARE, BC, SELFPAY | END 2018-07-28 14:17 | disposition home or self-care (01) | LOC: ACC 10:43 | PROVIDERS: PCP Internal Medicine Adolescent Medicine; Visit Provider Internal Medicine Adolescent Medicine | DX: Z51.81 Encounter for therapeutic drug level monitoring (principal); Z79.01 Long term (current) use of anticoagulants | CPT/HCPCS: 85610; 99211; G0463 ==

== ENCOUNTER → 2018-09-05 12:31 | Outpatient (CLI) | payer MEDICARE, BC, SELFPAY | PROVIDERS: PCP Internal Medicine Adolescent Medicine; Visit Provider Internal Medicine Adolescent Medicine | DX: Z51.81 Encounter for therapeutic drug level monitoring (principal); Z79.01 Long term (current) use of anticoagulants ==

== ENCOUNTER 2018-09-11 10:40 | Outpatient (CLI) | payer MEDICARE, BC, SELFPAY ==
[2018-09-11 12:02] LABS: PHA INR Fingerstick 2.7 (0.9-1.1)
== END 2018-09-11 12:09 | disposition home or self-care (01) ==
LOC: ACC 10:41
PROVIDERS: PCP Internal Medicine Adolescent Medicine; Visit Provider Internal Medicine Adolescent Medicine
DX: Z51.81 Encounter for therapeutic drug level monitoring (principal); Z79.01 Long term (current) use of anticoagulants; Z95.2 Presence of prosthetic heart valve
CPT/HCPCS: 85610; 99211; G0463

== ENCOUNTER 2018-10-09 10:48 | Outpatient (CLI) | payer MEDICARE, BC, SELFPAY ==
[2018-10-09 12:14] LABS: PHA INR Fingerstick 3.5 (0.9-1.1)
== END 2018-10-09 12:15 | disposition home or self-care (01) ==
LOC: ACC 10:49
PROVIDERS: PCP Internal Medicine Adolescent Medicine; Visit Provider Internal Medicine Adolescent Medicine
DX: Z51.81 Encounter for therapeutic drug level monitoring (principal); Z79.01 Long term (current) use of anticoagulants
CPT/HCPCS: 85610; 99211; G0463

== ENCOUNTER 2018-10-17 10:52 | Outpatient (CLI) | payer MEDICARE, BC, SELFPAY ==
[2018-10-17 14:25] LABS: PHA INR Fingerstick 2.5 (0.9-1.1)
== END 2018-10-17 14:26 | disposition home or self-care (01) ==
LOC: ACC 10:52
PROVIDERS: PCP Internal Medicine Adolescent Medicine; Visit Provider Internal Medicine Adolescent Medicine
DX: Z51.81 Encounter for therapeutic drug level monitoring (principal); Z79.01 Long term (current) use of anticoagulants
CPT/HCPCS: 85610; 99211; G0463

== ENCOUNTER 2018-11-07 10:46 | Outpatient (CLI) | payer MEDICARE, BC, SELFPAY ==
[2018-11-07 12:11] LABS: PHA INR Fingerstick 2.5 (0.9-1.1)
== END 2018-11-07 12:13 | disposition home or self-care (01) ==
LOC: ACC 10:47
PROVIDERS: PCP Internal Medicine Adolescent Medicine; Visit Provider Internal Medicine Adolescent Medicine
DX: Z51.81 Encounter for therapeutic drug level monitoring (principal); Z79.01 Long term (current) use of anticoagulants; Z95.2 Presence of prosthetic heart valve
CPT/HCPCS: 85610; 99211; G0463

== ENCOUNTER 2018-11-10 10:47 | Outpatient (CLI) | payer MEDICARE, BC, SELFPAY ==
[2018-11-10 14:01] LABS: PHA INR Fingerstick 2.5 (0.9-1.1)
== END 2018-11-10 14:38 | disposition home or self-care (01) ==
PROVIDERS: PCP Internal Medicine Adolescent Medicine; Visit Provider Internal Medicine Adolescent Medicine
DX: Z51.81 Encounter for therapeutic drug level monitoring (principal); Z79.01 Long term (current) use of anticoagulants; Z95.2 Presence of prosthetic heart valve
CPT/HCPCS: 85610; 99211; G0463

== ENCOUNTER 2018-12-13 11:19 | Outpatient (CLI) | payer MEDICARE, BC, SELFPAY ==
[2018-12-13 12:06] LABS: PHA INR Fingerstick 2.5 (0.9-1.1)
== END 2018-12-13 12:07 | disposition home or self-care (01) ==
PROVIDERS: PCP Internal Medicine Adolescent Medicine; Visit Provider Internal Medicine Adolescent Medicine
DX: Z51.81 Encounter for therapeutic drug level monitoring (principal); Z79.01 Long term (current) use of anticoagulants
CPT/HCPCS: 85610; 99211; G0463

== ENCOUNTER 2019-01-15 10:55 | Outpatient (CLI) | payer MEDICARE, BC, SELFPAY ==
[2019-01-15 11:52] LABS: PHA INR Fingerstick 2.6 (0.9-1.1)
== END 2019-01-15 11:53 | disposition home or self-care (01) ==
LOC: ACC 10:56
PROVIDERS: PCP Internal Medicine Adolescent Medicine; Visit Provider Internal Medicine Adolescent Medicine
DX: Z51.81 Encounter for therapeutic drug level monitoring (principal); Z79.01 Long term (current) use of anticoagulants; Z95.2 Presence of prosthetic heart valve
CPT/HCPCS: 85610; 99211; G0463

== ENCOUNTER 2019-02-26 10:47 | Outpatient (CLI) | payer MEDICARE, BC, SELFPAY ==
[2019-02-26 15:21] LABS: PHA INR Fingerstick 2.2 (0.9-1.1)
== END 2019-02-26 15:28 | disposition home or self-care (01) ==
LOC: ACC 10:48
PROVIDERS: PCP Internal Medicine Adolescent Medicine; Visit Provider Internal Medicine Adolescent Medicine
DX: Z51.81 Encounter for therapeutic drug level monitoring (principal); Z79.01 Long term (current) use of anticoagulants; Z95.2 Presence of prosthetic heart valve
CPT/HCPCS: 85610; 99211; G0463

== ENCOUNTER 2019-03-09 11:29 | Outpatient (CLI) | payer MEDICARE, BC, SELFPAY ==
[2019-03-09 13:51] LABS: PHA INR Fingerstick 3.8 (0.9-1.1)
== END 2019-03-09 14:08 | disposition home or self-care (01) ==
LOC: ACC 11:30
PROVIDERS: PCP Internal Medicine Adolescent Medicine; Visit Provider Internal Medicine Adolescent Medicine
DX: Z51.81 Encounter for therapeutic drug level monitoring (principal); Z79.01 Long term (current) use of anticoagulants; Z95.2 Presence of prosthetic heart valve
CPT/HCPCS: 85610; 99211; G0463

== ENCOUNTER 2019-03-21 10:07 | Outpatient (CLI) | payer MEDICARE, BC, SELFPAY ==
[2019-03-21 11:55] LABS: PHA INR Fingerstick 2.6 (0.9-1.1)
== END 2019-03-21 11:57 | disposition home or self-care (01) ==
LOC: ACC 10:09
PROVIDERS: PCP Internal Medicine Adolescent Medicine; Visit Provider Internal Medicine Adolescent Medicine
DX: Z51.81 Encounter for therapeutic drug level monitoring (principal); Z79.01 Long term (current) use of anticoagulants; Z95.2 Presence of prosthetic heart valve
CPT/HCPCS: 85610; 99211; G0463

== ENCOUNTER 2019-04-11 11:19 | Outpatient (CLI) | payer MEDICARE, BC, SELFPAY | END 2019-04-11 16:37 | disposition home or self-care (01) | LOC: ACC 11:20 | PROVIDERS: PCP Internal Medicine Adolescent Medicine; Visit Provider Internal Medicine Adolescent Medicine | DX: Z51.81 Encounter for therapeutic drug level monitoring (principal); Z79.01 Long term (current) use of anticoagulants; Z95.2 Presence of prosthetic heart valve | CPT/HCPCS: 85610; 99211; G0463 ==

== ENCOUNTER 2019-05-23 11:11 | Outpatient (CLI) | payer MEDICARE, BC, SELFPAY ==
[2019-05-23 13:49] LABS: PHA INR Fingerstick 3.5 (0.9-1.1)
== END 2019-05-23 15:24 | disposition home or self-care (01) ==
LOC: ACC 11:13
PROVIDERS: PCP Internal Medicine Adolescent Medicine; Visit Provider Internal Medicine Adolescent Medicine
DX: Z51.81 Encounter for therapeutic drug level monitoring (principal); Z79.01 Long term (current) use of anticoagulants; Z95.2 Presence of prosthetic heart valve
CPT/HCPCS: 85610; 99211; G0463

== ENCOUNTER → 2019-05-28 13:27 | Outpatient (CLI) | payer MEDICARE, BC, SELFPAY ==
--- NOTE | 2019-05-28 13:35 | CT_ITS ---
PROCEDURE: CT HEAD/BRAIN WO CON CLINICAL INDICATION: MILD COGNITIVE DISORDER COMPARISON: HEADWO CT head/brain wo con from 12/09/2017 TECHNIQUE: Axial images obtained. All CT scans at the facility use one or more dose reduction, viz: automated exposure control, ma/kV adjustment per patient size (including targeted exams where dose is matched to indication, i.e. head), or iterative reconstruction technique. FINDINGS: No midline shift, mass effect, intracranial hemorrhage, hydrocephalus, or extra-axial fluid collection is evident. There is atrophy with moderate small vessel ischemic gliotic disease of bilateral cerebral white matter. Calcifications are seen in both vertebral and internal carotid arteries. The calvarium has an unremarkable appearance. No mastoid effusion. No sinus air-fluid level. IMPRESSION: No acute intracranial finding Dictated by: Dillon Purvis 05/28/2019 14:11 Electronically signed by Dillon Purvis in [facility] 05/28/2019 14:11
== END ==
PROVIDERS: PCP Internal Medicine Adolescent Medicine; Visit Provider Internal Medicine Adolescent Medicine
DX: F09 Unspecified mental disorder due to known physiological condition (principal)
CPT/HCPCS: 70450

== ENCOUNTER 2019-06-18 13:51 | Outpatient (CLI) | payer MEDICARE, BC, SELFPAY ==
[2019-06-18 14:27] LABS: PHA INR Fingerstick 2.2 (0.9-1.1)
== END 2019-06-18 14:29 | disposition home or self-care (01) ==
LOC: ACC 13:53
PROVIDERS: PCP Internal Medicine Adolescent Medicine; Visit Provider Internal Medicine Adolescent Medicine
DX: Z51.81 Encounter for therapeutic drug level monitoring (principal); Z79.01 Long term (current) use of anticoagulants; Z95.2 Presence of prosthetic heart valve
CPT/HCPCS: 85610; 99211; G0463

== ENCOUNTER 2019-07-02 12:54 | Outpatient (CLI) | payer MEDICARE, BC, SELFPAY ==
[2019-07-02 15:40] LABS: PHA INR Fingerstick 3.1 (0.9-1.1)
== END 2019-07-02 15:44 | disposition home or self-care (01) ==
LOC: ACC 12:55
PROVIDERS: PCP Internal Medicine Adolescent Medicine; Visit Provider Internal Medicine Adolescent Medicine
DX: Z51.81 Encounter for therapeutic drug level monitoring (principal); Z79.01 Long term (current) use of anticoagulants; Z95.2 Presence of prosthetic heart valve
CPT/HCPCS: 85610; 99211; G0463

== ENCOUNTER 2019-07-30 12:50 | Outpatient (CLI) | payer MEDICARE, BC, SELFPAY ==
[2019-07-30 13:46] LABS: Prothrombin Time 44.2 seconds (9.4-11.8)
[2019-07-30 13:49] LABS: INR 4.57 (0.9-1.1)
[2019-07-30 16:53] LABS: PHA INR Fingerstick 4.4 (0.9-1.1)
== END 2019-07-30 16:59 | disposition home or self-care (01) ==
PROVIDERS: PCP Internal Medicine Adolescent Medicine; Visit Provider Internal Medicine Adolescent Medicine
DX: Z51.81 Encounter for therapeutic drug level monitoring (principal); Z79.01 Long term (current) use of anticoagulants; Z95.2 Presence of prosthetic heart valve
CPT/HCPCS: 36415; 85610; 99211; G0463

== ENCOUNTER 2019-08-14 12:49 | Outpatient (CLI) | payer MEDICARE, BC, SELFPAY ==
[2019-08-14 14:41] LABS: PHA INR Fingerstick 2.2 (0.9-1.1)
== END 2019-08-14 14:57 | disposition home or self-care (01) ==
PROVIDERS: PCP Internal Medicine Adolescent Medicine; Visit Provider Internal Medicine Adolescent Medicine
DX: Z51.81 Encounter for therapeutic drug level monitoring (principal); Z79.01 Long term (current) use of anticoagulants; Z95.2 Presence of prosthetic heart valve
CPT/HCPCS: 85610; 99211; G0463

== ENCOUNTER 2019-09-03 12:41 | Outpatient (CLI) | payer MEDICARE, BC, SELFPAY ==
[2019-09-03 13:38] LABS: PHA INR Fingerstick 2.2 (0.9-1.1)
== END 2019-09-03 13:40 | disposition home or self-care (01) ==
PROVIDERS: PCP Internal Medicine Adolescent Medicine; Visit Provider Internal Medicine Adolescent Medicine
DX: Z51.81 Encounter for therapeutic drug level monitoring (principal); Z79.01 Long term (current) use of anticoagulants; Z95.2 Presence of prosthetic heart valve
CPT/HCPCS: 85610; 99211; G0463

== ENCOUNTER 2019-09-17 13:00 | Outpatient (CLI) | payer MEDICARE, BC, SELFPAY ==
[2019-09-17 13:43] LABS: PHA INR Fingerstick 2.4 (0.9-1.1)
== END 2019-09-17 13:45 | disposition home or self-care (01) ==
LOC: ACC 13:01
PROVIDERS: PCP Internal Medicine Adolescent Medicine; Visit Provider Internal Medicine Adolescent Medicine
DX: Z51.81 Encounter for therapeutic drug level monitoring (principal); Z79.01 Long term (current) use of anticoagulants; Z95.2 Presence of prosthetic heart valve
CPT/HCPCS: 85610; 99211; G0463

== ENCOUNTER 2019-10-15 12:56 | Outpatient (CLI) | payer MEDICARE, BC, SELFPAY ==
[2019-10-15 13:33] LABS: PHA INR Fingerstick 2.5 (0.9-1.1)
== END 2019-10-15 13:39 | disposition home or self-care (01) ==
LOC: ACC 12:58
PROVIDERS: PCP Internal Medicine Adolescent Medicine; Visit Provider Internal Medicine Adolescent Medicine
DX: Z51.81 Encounter for therapeutic drug level monitoring (principal); Z79.01 Long term (current) use of anticoagulants; Z95.2 Presence of prosthetic heart valve
CPT/HCPCS: 85610; 99211; G0463

== ENCOUNTER 2019-11-22 22:36 | Emergency (ER) | payer MEDICARE, BC, SELFPAY ==
[2019-11-22 22:37] VITALS: BP 158/76; PULSE 77; RESP 16; TEMP 36.8; O2SAT 98; BMI 18.9
--- NOTE | 2019-11-22 22:44 | XR_ITS ---
PROCEDURE: XR CHEST AP CLINICAL HISTORY: fall Posttraumatic pain COMPARISON: [id number] XR ribs RT min 3V w CXR1V from 09/05/2017 CXR2V XR chest 2V from 02/18/2018 CXR2V XR chest 2V from 03/10/2018 FINDINGS: Cardiomegaly. Prior aortic valve replacement. Bipolar pacemaker is present from left subclavian approach. The lungs are clear without infiltrates, suspicious nodules, or pleural effusions. No acute bony abnormalities. IMPRESSION: Cardiomegaly. No acute finding Dictated by: Taye Norman MD 11/23/2019 06:33 Electronically signed by Taye Norman MD in [facility] 11/23/2019 06:33
--- NOTE | 2019-11-22 22:44 | XR_ITS ---
PROCEDURE: XR PELVIS 1-2V CLINICAL INDICATION: fall Posttraumatic pain COMPARISON: No exams were available for comparison FINDINGS: No fracture or dislocation. No lytic or blastic change. There is normal mineralization. Mild osteoarthritic changes are present involving the hips Other findings:None. IMPRESSION: No acute findings. Dictated by: Taye Norman MD 11/23/2019 06:32 Electronically signed by Taye Norman MD in [facility] 11/23/2019 06:32
--- NOTE | 2019-11-22 22:45 | CT_ITS ---
PROCEDURE: CT CERVICAL SPINE WO CON CLINICAL INDICATION: fall Posttraumatic pain COMPARISON: No exams were available for comparison TECHNIQUE: Axial images obtained with sagittal and coronal reformats. All CT scans at the facility use one or more dose reduction, viz: automated exposure control, ma/kV adjustment per patient size (including targeted exams where dose is matched to indication, i.e. head), or iterative reconstruction technique. Axial spiral CT scanning performed of the cervical spine beginning at the base of the skull and continuing to the upper T-spine. 3-D multiplanar reconstruction with 3-D manipulation of volumetric data set in image rendering was completed by the radiologist and/or technologist with the supervision of the radiologist on independent workstation. FINDINGS: There is exaggeration of the cervical lordosis with upper thoracic kyphosis. There is generalized osteopenia. No acute fracture or dislocation. Multilevel degenerative disc disease/cervical spondylosis with facet and uncovertebral hypertrophy C2-C3 degenerative disc disease. C3-C4: Degenerate disc disease with 4 mm anterolisthesis of C3 and bilateral foraminal narrowing, C4-C5: Degenerate disc disease with bilateral foraminal narrowing and right paracentral disc osteophyte complex, C5-C6: Degenerate disc disease with bilateral foraminal narrowing C6-C7 3 mm anterolisthesis of C3 with degenerative disc disease Lung apices are clear Left lobe of the thyroid gland is enlarged with some heterogeneous density IMPRESSION: 1. No acute fracture. 2. Cervical spondylosis as detailed above Dictated by: Taye Norman MD 11/23/2019 05:25 Electronically signed by Taye Norman MD in [facility] 11/23/2019 05:25
--- NOTE | 2019-11-22 22:45 | CT_ITS ---
PROCEDURE: CT THORACIC SPINE WO CON CLINICAL HISTORY: fall Posttraumatic pain the COMPARISON: CT LUMBAR SPINE WO CON from 11/22/2019 TECHNIQUE: Axial images obtained with sagittal and coronal reformats. All CT scans at the facility use one or more dose reduction, viz: automated exposure control, ma/kV adjustment per patient size (including targeted exams where dose is matched to indication, i.e. head), or iterative reconstruction technique. FINDINGS: There is diffuse osteopenia with thoracic kyphosis. There is mild multilevel thoracic spondylosis with degenerative disc disease and small endplate osteophytes. There is mild wedging of the T4 vertebral body with minimal retropulsion of the posterior inferior aspect of T4-2 to 3 mm. Incidental note is made of cardiomegaly, cardiac pacemaker device, aortic valve prosthesis IMPRESSION: 1. Compression fracture of T4 with loss of height anteriorly of approximately 40 percent age indeterminate. Minimal retropulsion of the posterior inferior aspect of T4 3 mm. 2. Multilevel thoracic spondylosis with kyphosis Dictated by: Taye Norman MD 11/23/2019 05:37 Electronically signed by Taye Norman MD in [facility] 11/23/2019 05:37
--- NOTE | 2019-11-22 22:45 | CT_ITS ---
PROCEDURE: CT LUMBAR SPINE WO CON CLINICAL HISTORY: fall Fall with injury and pain, mid back pain COMPARISON: [id number] CT lumbar spine wo con from 04/17/2018 TECHNIQUE: Axial images obtained with sagittal and coronal reformats. All CT scans at the facility use one or more dose reduction, viz: automated exposure control, ma/kV adjustment per patient size (including targeted exams where dose is matched to indication, i.e. head), or iterative reconstruction technique. FINDINGS: There is diffuse osteopenia the with normal alignment. There is mild chronic compression change of L3. Minimal bulging disc L3-L4 and L4-5 and L5-S1. Mild facet and ligamentum hypertrophy L3-S1. No acute fracture or dislocation. IMPRESSION: 1. No acute fracture. 2. Mild lumbar spondylosis. 3. Chronic compression deformity of L3 Dictated by: Taye Norman MD 11/23/2019 05:30 Electronically signed by Taye Norman MD in [facility] 11/23/2019 05:30
[2019-11-22 22:59] LABS: Chloride 98 mmol/L (98-107)
[2019-11-22 23:00] LABS: Potassium 4.3 mmoL/L (3.5-5.1); Sodium 142 mmol/L (136-145)
[2019-11-22 23:02] LABS: Alanine Aminotransferase 21 U/L (12-78); Aspartate Amino Transferase 39 U/L (14-36); Basophils % 0.3 % (0.1-2.0); Blood Urea Nitrogen 22 mg/dl (7-17); Creatinine Clearance Estimated 34 mL/min (50-200); Eosinophils # 0.1 K/mm3 (0.0-0.4); Eosinophils % 1.8 % (0.1-12.0); Estimated Glomerular Filt Rate 80 ml/min (>60); GFR (African American) 97 ML/MIN (>60); Hematocrit 40.2 % (37.0-47.0); Hemoglobin 13.5 g/dL (12.2-16.2); Lymphocytes # 1.5 K/mm3 (0.7-4.5); Lymphocytes % 29.7 % (10-50); Mean Corpuscular HGB Conc 33.6 g/dL (31.8-35.4); Mean Corpuscular Volume 104.2 fl (81-99); Monocytes # 0.3 K/mm3 (0.1-1.0); Monocytes % 6.3 % (1.7-9.3); Neutrophils # 3.2 K/mm3 (1.8-7.8); Platelet Count 95 K/mm3 (142-424); Red Blood Count 3.86 M/mm3 (4.20-5.40); Red Cell Distribution Width 14.2 % (11.5-17.5); White Blood Count 5.1 K/mm3 (4.8-10.8)
[2019-11-22 23:03] LABS: Albumin Level 4.6 g/dl (3.5-5.0); Albumin/Globulin Ratio 1.4 (1.1-1.8); Alkaline Phosphatase 59 U/L (38-126); Anion Gap 14.3 mEq/L (5-15); Bilirubin,Total 0.5 mg/dl (0.2-1.3); Calcium 9.6 mg/dl (8.4-10.2); Carbon Dioxide 34 mmol/L (22.0-30.0); Globulin 3.2 g/dL (1.3-3.2); Glucose 111 mg/dl (74-100); Total Protein,Serum 7.8 g/dl (6.3-8.2)
[2019-11-22 23:05] VITALS: BP 147/67; PULSE 76; RESP 16; O2SAT 98
--- NOTE | 2019-11-22 23:29 | PC.NURSE ---
in ct at this time
[2019-11-22 23:49] LABS: INR 2.47 (0.9-1.1)
--- NOTE | 2019-11-22 23:50 | PC.NURSE ---
family at bedside, asking for ifeoma/ lo took to patient.
--- NOTE | 2019-11-23 00:16 | HMH.EDFALL ---
ED Disposition Clinical Impression: H/O mechanical aortic valve replacement, Cardiac pacemaker in situ Thoracic spine fracture Qualifiers: Encounter type: initial encounter Thoracic vertebra fracture level: T3 Fracture type: closed Fracture morphology: wedge compression Qualified Code(s): S22.030A - Wedge compression fracture of third thoracic vertebra, initial encounter for closed fracture Fall Qualifiers: Encounter type: initial encounter Qualified Code(s): W19.XXXA - Unspecified fall, initial encounter Disposition: Home, Self-Care Condition on Discharge: Fair Instructions: How to Prevent Falls Additional Instructions: call pcp this am and recheck if needed Referrals: Nazario Burk MD [Primary Care Provider] - - Critical Care Critical Care Time: No Attestation: On 11/22/19, the high probability of a clinically significant, sudden or life threatening deterioration of the following system(s) required my full and direct attention, intervention and personal management. The time I documented below is in addition to time spent performing reported procedures but includes the following listed in this critical care notation. Medical Decision Making - Medical Records Medical records reviewed: Yes: I reviewed the patient's medical records. - Zenon Inquiry Pt receiving controlled substance: No Vital Signs: 11/22/19 22:37 11/22/19 23:05 11/23/19 01:12 Temperature 98.2 F Temperature Source Oral Pulse Rate [Right Brachial] 77 76 56 L Respiratory Rate 16 16 Blood Pressure [Right Arm] 158/76 H 147/67 H 170/76 H Blood Pressure Mean [Right Arm] 103 93 107 Blood Pressure Source [Right Arm] Automatic Cuff Automatic Cuff Automatic Cuff Blood Pressure Position [Right Arm] Sitting Sitting Sitting 02 Sat by Pulse Oximetry 98 98 96 Oxygen Delivery Method Room Air Room Air Room Air - Lab Data Lab results reviewed: Yes: I reviewed the patient's lab results. Lab Results 11/22/19 22:40: WBC 5.1, RBC 3.86 L, Hgb 13.5, Hct 40.2, MCV 104.2 H, MCH 35.0 H, MCHC 33.6, RDW 14.2, Plt Count 95 L, MPV 9.0, Neut % (Auto) 62.0, Lymph % (Auto) 29.7, Irion % (Auto) 6.3, Eos % (Auto) 1.8, Baso % (Auto) 0.3, Neut # (Auto) 3.2, Lymph # (Auto) 1.5, Irion # (Auto) 0.3, Eos # (Auto) 0.1, Baso # (Auto) 0.0 11/22/19 22:40: Sodium 142, Potassium 4.3, Chloride 98, Carbon Dioxide 34 H, Anion Gap 14.3, BUN 22 H, Creatinine 0.70, Estimated Creat Clear 34, Estimated GFR 80, Est GFR ( Amer) 97, Glucose 111 H, Calcium 9.6, Total Bilirubin 0.5, AST 39 H, ALT 21, Alkaline Phosphatase 59, Total Protein 7.8, Albumin 4.6, Globulin 3.2, Albumin/Globulin Ratio 1.4 11/22/19 22:40: PT 24.0 H, INR 2.47 H Result diagrams: 11/22/19 22:40 11/22/19 22:40 Orders (Tests/Meds): ORDERS Category Date Time Status CT cervical spine wo con Stat Cat Scan 11/22/19 22:[address] lumbar spine wo con Stat Cat Scan 11/22/19 22:[address] thoracic spine wo con Stat Cat Scan 11/22/19 22:45 Taken XR chest AP Stat Exams 11/22/19 22:44 Taken XR pelvis 1-2V Stat Exams 11/22/19 22:44 Taken - Radiology Data #1 Image(s): Chest, Pelvis Image Reviewed: Yes I reviewed the patient's radiology image Preliminary Findings: No Fracture Seen - CT Data CT Scan: C-Spine, T-Spine, L-Spine Time Received: 01:[address] Reviewed: Yes: I have viewed the radiologist's interpretation Preliminary Findings: Abnormal (see report- pron new t3 fx ) Fall HPI - General Chief Complaint: Fall Stated Complaint: fall Time Seen by Provider: 11/22/19 23:50 Mode of Arrival: EMS Source of Information: Patient, Relative, EMS, Medical Record Limitations: No Limitations Description of Symptoms (Recalled from ER Triage Doc. by RN): Patient brought in by [facility] with reports patient fell walking through the living room and hit her couch. Patient denies hitting her head and her cheif complaint is mid back pain. - History of Present Illness HPI Narrative: acute injury
--- NOTE | 2019-11-23 01:05 | PC.NURSE ---
up ambulating to bathroom at this time.
[2019-11-23 01:12] VITALS: BP 170/76; PULSE 56; O2SAT 96
[2019-11-23 01:30] VITALS: BP 170/76; PULSE 56; RESP 16; TEMP 36.8; O2SAT 96
== END 2019-11-23 01:30 | disposition home or self-care (01) ==
PROVIDERS: Emergency Provider Emergency Medicine; PCP Internal Medicine Adolescent Medicine
DX: S22.030A Wedge compression fracture of third thoracic vertebra, initial encounter for closed fracture (principal); W01.190A Fall on same level from slipping, tripping and stumbling with subsequent striking against furniture, initial encounter; Y92.019 Unspecified place in single-family (private) house as the place of occurrence of the external cause; Z95.0 Presence of cardiac pacemaker; Z95.2 Presence of prosthetic heart valve; Z86.73 Personal history of transient ischemic attack (TIA), and cerebral infarction without residual deficits; I25.10 Atherosclerotic heart disease of native coronary artery without angina pectoris; F03.90 Unspecified dementia, unspecified severity, without behavioral disturbance, psychotic disturbance, mood disturbance, and anxiety; K21.9 Gastro-esophageal reflux disease without esophagitis; E78.5 Hyperlipidemia, unspecified; I10 Essential (primary) hypertension; M81.0 Age-related osteoporosis without current pathological fracture
CPT/HCPCS: 71045; 72125; 72128; 72131; 72170; 80053; 85025; 85610; 99283

== ENCOUNTER 2019-12-28 14:21 | Outpatient (CLI) | payer MEDICARE, BC, SELFPAY ==
[2019-12-28 15:07] LABS: PHA INR Fingerstick 2.8 (0.9-1.1)
== END 2019-12-28 15:11 | disposition home or self-care (01) ==
LOC: ACC 14:22
PROVIDERS: PCP Internal Medicine Adolescent Medicine; Visit Provider Internal Medicine Adolescent Medicine
DX: Z51.81 Encounter for therapeutic drug level monitoring (principal); Z79.01 Long term (current) use of anticoagulants; Z95.2 Presence of prosthetic heart valve
CPT/HCPCS: 85610; 99211; G0463

== ENCOUNTER 2020-02-05 15:46 | Emergency (ER) | payer MEDICARE, BC, SELFPAY ==
--- NOTE | 2020-02-05 15:56 | XR_ITS ---
PROCEDURE: XR WRIST LT MIN 3V CLINICAL INDICATION: pain after FOOSH Posttraumatic pain COMPARISON: No exams were available for comparison FINDINGS: No obvious fracture or dislocation. Chondrocalcinosis involves the triangular fibrocartilage. Osteoarthritic changes are present at the 1st metacarpal-carpal joint and scapho trapezium joint. IMPRESSION: No acute fracture: Degenerative changes Dictated by: Taye Norman MD 02/05/2020 16:51 Taye Norman MD in [place] 02/05/2020 16:51
--- NOTE | 2020-02-05 15:56 | CT_ITS ---
PROCEDURE: CT CERVICAL SPINE WO CON CLINICAL INDICATION: pain after FOOSH Neck injury with pain, contusion/abrasion or hematoma, cervical sprain/strain the COMPARISON: CT CT CERVICAL SPINE WO CON from 11/22/[address] THORACIC SPINE WO CON from 11/22/2019 TECHNIQUE: Axial images obtained with sagittal and coronal reformats. All CT scans at the facility use one or more dose reduction, viz: automated exposure control, ma/kV adjustment per patient size (including targeted exams where dose is matched to indication, i.e. head), or iterative reconstruction technique. Axial spiral CT scanning performed of the cervical spine beginning at the base of the skull and continuing to the upper T-spine. 3-D multiplanar reconstruction with 3-D manipulation of volumetric data set in image rendering was completed by the radiologist and/or technologist with the supervision of the radiologist on independent workstation. FINDINGS: There is exaggeration of the cervical lordosis and upper thoracic kyphosis. There is ossification at the cranial occipital junction at the inferior clivus and at the C1-C2 region anteriorly. There is multilevel cervical spondylosis. C2-C3: Degenerative disc disease. C3-C4: Degenerative disc disease with 3 mm anterolisthesis of C3 with bilateral foraminal narrowing. C4-C5: Degenerate disc disease with endplate hypertrophic change right lateral recess and right foraminal narrowing. C5-C6: Degenerative disc disease with bilateral foraminal narrowing. C6-C7: 4 mm anterolisthesis of C6. C7-T1 T2 and T3 are unremarkable. There is severe wedge compression changes of T4 which have increased since the previous exam with retropulsion of the posterior inferior aspect of T4 endplate by 4 mm. There is diffuse osteopenia. Lung apices are clear. IMPRESSION: Diffuse cervical spondylosis with exaggeration of the lordosis. No acute cervical fracture. Please see above for detail. Increasing wedge compression changes of T4 with greater than 50 percent loss of height anteriorly and mild retropulsion of the posterior inferior aspect of the T4 vertebral body by 4 mm. Dictated by: Taye Norman MD 02/05/2020 16:48 Taye Norman MD in [facility] 02/05/2020 16:48
--- NOTE | 2020-02-05 15:56 | CT_ITS ---
PROCEDURE: CT HEAD/BRAIN WO CON CLINICAL INDICATION: pain after FOOSH Head injury with headache/pain, contusion, abrasion or hematoma COMPARISON: CT CT HEAD/BRAIN WO CON from 05/28/2019 TECHNIQUE: Axial images obtained. All CT scans at the facility use one or more dose reduction, viz: automated exposure control, ma/kV adjustment per patient size (including targeted exams where dose is matched to indication, i.e. head), or iterative reconstruction technique. FINDINGS: No midline shift, mass effect, intracranial hemorrhage, hydrocephalus, or extra-axial fluid collection is evident. There is generalized atrophy with hypoattenuation of the periventricular white matter consistent with microangiopathic changes. The calvarium has an unremarkable appearance. No mastoid effusion. No sinus air-fluid level. IMPRESSION: No acute intracranial finding Dictated by: Taye Norman MD 02/05/2020 16:44 Taye Norman MD in [facility] 02/05/2020 16:44
--- NOTE | 2020-02-05 15:58 | HMH.EDFALL ---
ED Disposition Clinical Impression: Fall Qualifiers: Encounter type: initial encounter Qualified Code(s): W19.XXXA - Unspecified fall, initial encounter Cervical strain, acute Qualifiers: Encounter type: initial encounter Qualified Code(s): S16.1XXA - Strain of muscle, fascia and tendon at neck level, initial encounter Wrist injury Qualifiers: Encounter type: initial encounter Laterality: left Qualified Code(s): S69.92XA - Unspecified injury of left wrist, hand and finger(s), initial encounter Disposition: Home, Self-Care Condition on Discharge: Good Instructions: How to Prevent Falls, DI for Musculoskeletal Pain Prescriptions: methocarbamoL [Methocarbamol 500mg Tablet] 500 mg PO TID PRN #10 tab PRN Reason: pain Prescription Printed Referrals: Nazario Burk MD [Primary Care Provider] - 3 days - Critical Care Critical Care Time: No Attestation: On 02/05/20, the high probability of a clinically significant, sudden or life threatening deterioration of the following system(s) required my full and direct attention, intervention and personal management. The time I documented below is in addition to time spent performing reported procedures but includes the following listed in this critical care notation. Medical Decision Making - Medical Records Medical records reviewed: Yes: I reviewed the patient's medical records. - Zenon Inquiry Pt receiving controlled substance: No Vital Signs: 02/05/20 15:59 Temperature 98.0 F Temperature Source Oral Pulse Rate [Right Radial] 60 Respiratory Rate 15 Blood Pressure [Right Arm] 136/62 Blood Pressure Mean [Right Arm] 86 02 Sat by Pulse Oximetry 97 Oxygen Delivery Method Room Air - Radiology Data #1 Image(s): Wrist Image Reviewed: Yes I reviewed the patient's radiology results Preliminary Findings: Normal/NAD Degenerative changes, no scaphoid fracture - CT Data CT Scan: Head, C-Spine Time Received: 16:53 Findings Narrative: FINDINGS: There is exaggeration of the cervical lordosis and upper thoracic kyphosis. There is ossification at the cranial occipital junction at the inferior clivus and at the C1-C2 region anteriorly. There is multilevel cervical spondylosis. C2-C3: Degenerative disc disease. C3-C4: Degenerative disc disease with 3 mm anterolisthesis of C3 with bilateral foraminal narrowing. C4-C5: Degenerate disc disease with endplate hypertrophic change right lateral recess and right foraminal narrowing. C5-C6: Degenerative disc disease with bilateral foraminal narrowing. C6-C7: 4 mm anterolisthesis of C6. C7-T1 T2 and T3 are unremarkable. There is severe wedge compression changes of T4 which have increased since the previous exam with retropulsion of the posterior inferior aspect of T4 endplate by 4 mm. There is diffuse osteopenia. Lung apices are clear. IMPRESSION: Diffuse cervical spondylosis with exaggeration of the lordosis. No acute cervical fracture. Please see above for detail. Increasing wedge compression changes of T4 with greater than 50 percent loss of height anteriorly and mild retropulsion of the posterior inferior aspect of the T4 vertebral body by 4 mm. Medical Decision Narrative: CT head and cervical spine negative for any acute findings. She does have worsening of her T4 compression fracture which I have informed the patient of. She states that she knows about this deformity, but has been declined for surgery because of bleeding problems. X-ray of the left wrist shows no acute fracture or dislocation and on reexamination at 1700, patient states her left wrist really is not hurting her that much anymore, so will not use brace for occult scaphoid fracture at this time. Discharged home with prescription for Robaxin if needed for muscle relaxation given her neck pain after the fall. She has tramadol at home. Advise follow-up with PCP in 2 to 3 days for reevaluation. Fall HPI - General Stat
[2020-02-05 15:59] VITALS: BP 136/62; PULSE 60; RESP 15; TEMP 36.7; O2SAT 97; BMI 20.9
[2020-02-05 17:02] VITALS: BP 133/70; PULSE 60; RESP 18; O2SAT 98
[2020-02-05 17:05] VITALS: BP 133/70; PULSE 60; RESP 17; TEMP 36.7; O2SAT 98
== END 2020-02-05 17:18 | disposition home or self-care (01) ==
PROVIDERS: Emergency Provider Emergency Medicine; PCP Internal Medicine Adolescent Medicine
DX: S16.1XXA Strain of muscle, fascia and tendon at neck level, initial encounter (principal); S69.92XA Unspecified injury of left wrist, hand and finger(s), initial encounter; W01.0XXA Fall on same level from slipping, tripping and stumbling without subsequent striking against object, initial encounter; Y92.017 Garden or yard in single-family (private) house as the place of occurrence of the external cause; I10 Essential (primary) hypertension; E78.5 Hyperlipidemia, unspecified; I25.10 Atherosclerotic heart disease of native coronary artery without angina pectoris; J44.9 Chronic obstructive pulmonary disease, unspecified; K21.9 Gastro-esophageal reflux disease without esophagitis; F03.90 Unspecified dementia, unspecified severity, without behavioral disturbance, psychotic disturbance, mood disturbance, and anxiety; Z79.01 Long term (current) use of anticoagulants; Z79.899 Other long term (current) drug therapy; Z95.5 Presence of coronary angioplasty implant and graft; Z90.49 Acquired absence of other specified parts of digestive tract; Z90.710 Acquired absence of both cervix and uterus; Z88.2 Allergy status to sulfonamides
CPT/HCPCS: 70450; 72125; 73110; 99282

== ENCOUNTER 2020-02-12 11:07 | Outpatient (CLI) | payer MEDICARE, BC, SELFPAY | END 2020-02-12 13:29 | disposition home or self-care (01) | LOC: ACC 11:08 | PROVIDERS: PCP Internal Medicine Adolescent Medicine; Visit Provider Internal Medicine Adolescent Medicine | DX: Z51.81 Encounter for therapeutic drug level monitoring (principal); Z79.01 Long term (current) use of anticoagulants; Z95.2 Presence of prosthetic heart valve | CPT/HCPCS: 85610; 99211; G0463 ==

== ENCOUNTER 2020-03-17 10:51 | Outpatient (CLI) | payer MEDICARE, BC, SELFPAY | END 2020-03-17 13:33 | disposition home or self-care (01) | LOC: ACC 10:53 | PROVIDERS: PCP Internal Medicine Adolescent Medicine; Visit Provider Internal Medicine Adolescent Medicine | DX: Z51.81 Encounter for therapeutic drug level monitoring (principal); Z79.01 Long term (current) use of anticoagulants; Z95.2 Presence of prosthetic heart valve | CPT/HCPCS: 85610; 99211; G0463 ==

== ENCOUNTER 2020-04-28 11:05 | Outpatient (CLI) | payer MEDICARE, BC, SELFPAY ==
[2020-04-28 15:57] LABS: PHA INR Fingerstick 2.4 (0.9-1.1)
== END 2020-04-28 16:06 | disposition home or self-care (01) ==
LOC: ACC 11:06
PROVIDERS: PCP Internal Medicine Adolescent Medicine; Visit Provider Internal Medicine Adolescent Medicine
DX: Z51.81 Encounter for therapeutic drug level monitoring (principal); Z79.01 Long term (current) use of anticoagulants; Z95.2 Presence of prosthetic heart valve
CPT/HCPCS: 85610; 99211; G0463

== ENCOUNTER 2020-05-26 10:55 | Outpatient (CLI) | payer MEDICARE, BC, SELFPAY ==
[2020-05-26 11:31] LABS: PHA INR Fingerstick 2.6 (0.9-1.1)
== END 2020-05-26 11:33 | disposition home or self-care (01) ==
LOC: ACC 10:58
PROVIDERS: PCP Internal Medicine Adolescent Medicine; Visit Provider Internal Medicine Adolescent Medicine
DX: Z51.81 Encounter for therapeutic drug level monitoring (principal); Z79.01 Long term (current) use of anticoagulants; Z95.2 Presence of prosthetic heart valve
CPT/HCPCS: 85610; 99211; G0463

== ENCOUNTER 2020-07-03 16:02 | Outpatient (CLI) | payer MEDICARE, BC, SELFPAY ==
[2020-07-03 16:24] LABS: PHA INR Fingerstick 3.6 (0.9-1.1)
== END 2020-07-03 16:25 | disposition home or self-care (01) ==
LOC: ACC 16:04
PROVIDERS: PCP Internal Medicine Adolescent Medicine; Visit Provider Internal Medicine Adolescent Medicine
DX: Z51.81 Encounter for therapeutic drug level monitoring (principal); Z79.01 Long term (current) use of anticoagulants; Z95.2 Presence of prosthetic heart valve
CPT/HCPCS: 85610; 99211; G0463

== ENCOUNTER 2020-07-21 07:22 | Outpatient (CLI) | payer MEDICARE, BC, SELFPAY ==
--- NOTE | 2020-07-21 07:24 | CA_ITS ---
APPROVED REPORT EXAM: Comprehensive 2D, Doppler, and color-flow Echocardiogram Record Press Operator: Glenda Jasmine RT(R) Ht: 5 ft 3 in Wt: 113lbs BSA: 1.52 BP: 115/62 mmHg Indications: Murmur,palpitations, HTN, SOB, hyperlipidemia, pacemaker, hx of AV replacement(mechanical), hx CVA, pulmonary HTN, CAD, dementia, GERD 2D Dimensions LVOT 1.93 cm (M/F) 1.5-2.5 M-Mode Dimensions RVDd 2.24 cm (0.9-2.6) LA Diam 4.52 cm (1.9-4.0) LVDd 4.77 cm (3.5-5.7) Ao Diam 2.69 cm (2.0-3.7) LVDs 3.77 cm (3.5-5.7) IVSd 0.96 cm (0.6-1.1) PWd 0.96 cm (0.6-1.1) EF (Teich) 42.60% FS 21.00% EDV (Teich) 106.00 mL ESV (Teich) 60.80 mL LV Diastology E Decel Time 150.00 (160-240 msec) E/A Ratio 2.2 MED E' 6.40 (< 7 cm/sec) E'/MED E' Ratio 15.31 (>14) LAT E' 12.90 (<10 cm/sec) E/LAT E' Ratio 7.60 (>14) Aortic Valve LVOT Max 147.00 (70-110 cm/s) LVOT VTI 32.10 cm AoV Peak Emmanuel. 149.00 (50-130 cm/s) AO Peak GR. 8.80 mmHg AO Mean GR. 4.90 (<5 mmHg) AO VTI 31.53 (18-25 cm) BASILIO (VTI) 2.98 (2.5-4.5 cm2) Mitral Valve MV E Max Emmanuel. 98.00 (40-130 cm/s) MV A Velocity 44.00 (40-130 cm/s) E/A Ratio 2.25 MV Decel. Time 150.00 (160-240 ms) MV PHT 44.00 ms Tricuspid Valve TR P. Velocity 335.00 cm/s RAP Estimate 15.00 mmHg RVSP 59.80 mmHg Left Ventricle Left atrium is moderately enlarged, left ventricle is normal size, mild concentric left ventricular hypertrophy, visually estimated ejection fraction 55% with no regional wall motion abnormality. Endocardial surfaces are poorly visualized. Right Ventricle Right atrium and right ventricle mildly enlarged with normal contractility, there is pacemaker leads in the right ventricle. Aortic Valve There is mechanical possibly valve noted in the aortic position, the valve is well-seated, there is no significant aortic outflow obstruction, there is trace aortic insufficiency. Mitral Valve Mitral valve leaflets are minimally thickened, there is mild mitral regurgitation. Tricuspid Valve Tricuspid valve grossly normal, there is moderate tricuspid regurgitation, calculated right ventricular systolic pressure is 58 mmHg. Pulmonic Valve Pulmonic valve is poorly visualized. Great Vessels Aortic root is normal size. Pericardium No significant pericardial effusion noted. Conclusion 1. Biatrial enlargement, normal left ventricular size, mild concentric left ventricular hypertrophy, visually estimated ejection fraction 55% with no regional wall motion abnormality, visually estimated ejection fraction 55% with no regional wall motion abnormality, diastolic parameters are inconclusive. 2. Normal functioning mechanical prosthetic valve in the aortic position without aortic outflow obstruction no significant aortic insufficiency. 3. Mild mitral and moderate tricuspid regurgitation, calculated right ventricular systolic pressure is 58 mmHg. 4. No significant pericardial effusion noted. Electronically signed by : Ricky Petersen, 07/21/2020 12:20:32
[2020-07-21 11:09] LABS: PHA INR Fingerstick 2.6 (0.9-1.1)
== END 2020-07-21 11:11 | disposition home or self-care (01) ==
LOC: RT 07:23
PROVIDERS: PCP Internal Medicine Adolescent Medicine; Visit Provider Urology
DX: E78.00 Pure hypercholesterolemia, unspecified (principal); I10 Essential (primary) hypertension; I27.20 Pulmonary hypertension, unspecified; Z79.01 Long term (current) use of anticoagulants; Z86.73 Personal history of transient ischemic attack (TIA), and cerebral infarction without residual deficits; Z95.0 Presence of cardiac pacemaker; Z95.2 Presence of prosthetic heart valve; Z51.81 Encounter for therapeutic drug level monitoring
CPT/HCPCS: 85610; 93306; 99211; G0463

== ENCOUNTER 2020-09-22 14:13 | Outpatient (CLI) | payer MEDICARE, BC, SELFPAY ==
[2020-09-22 14:52] LABS: PHA INR Fingerstick 2.7 (0.9-1.1)
== END 2020-09-22 14:54 | disposition home or self-care (01) ==
LOC: ACC 14:14
PROVIDERS: PCP Internal Medicine Adolescent Medicine; Visit Provider Internal Medicine Adolescent Medicine
DX: Z51.81 Encounter for therapeutic drug level monitoring (principal); Z79.01 Long term (current) use of anticoagulants
CPT/HCPCS: 85610; 99211; G0463

== ENCOUNTER 2020-10-22 10:33 | Emergency (ER) | payer MEDICARE, BC, SELFPAY ==
[2020-10-22 10:41] VITALS: BP 116/63; PULSE 70; RESP 20; TEMP 36.8; O2SAT 94; BMI 19.1
--- NOTE | 2020-10-22 10:58 | HMH.EDUTC ---
[facility] [place] Disposition Clinical Impression: Bug bites Qualifiers: Encounter type: initial encounter Qualified Code(s): W57.XXXA - Bitten or stung by nonvenomous insect and other nonvenomous arthropods, initial encounter Disposition: Home, Self-Care Condition on Discharge: Good Instructions: Insect Bites (Alternative Therapy), Insect Bites and Stings, DI for Insect Bites and Stings Additional Instructions: Use medication as prescribed. apply directly to the bites to help with itching Over the counter Calamine lotion may help with itching and irritation caused by bug bites Cool compresses on area may help with itching Follow up with Family Doctor if any signs of infection or worsening of symptoms Return if needed Straight to ER if any life threatening symptoms Prescriptions: Triamcinolone Acetonide [Kenalog 0.1% cream 80gm tube] 1 applicatio TOPICAL BID #1 tube Transmission Status: Received by [email or web address] Referrals: Nazario Burk MD [Primary Care Provider] - As needed Time of Disposition: 11:15 Medical Decision Making - Zenon Inquiry Pt receiving controlled substance: No Zenon was queried for this patient: No Vital Signs: 10/22/20 10:41 10/22/20 11:13 Temperature 98.3 F 98.3 F Temperature Source Oral Pulse Rate 70 Pulse Rate [Right] 70 Respiratory Rate 20 20 Blood Pressure 116/63 Blood Pressure [Right Arm] 116/63 Blood Pressure Mean [Right Arm] 80 02 Sat by Pulse Oximetry 94 L Oxygen Delivery Method Room Air Medical Decision Narrative: Spoke with Jaun Morrissey from [facility] and discussed medications and agreed Kenalog 0.1% applied to bites BID for itching and advised patient had appointment in [facility] today that she could go ahead and come on up to see him and have lab draw and patient and daughter agreed [facility] HPI - General Stated complaint: bug bites on legs Time Seen by Provider: 10/22/20 10:58 Mode of Arrival: Ambulatory Source of Information: Patient Limitations: No Limitations Description of Symptoms (Recalled from Triage Doc. by RN): pt states she was working out in her yard and ended up with bug bites on her legs (mostly left), bacck and buttox. HEENT Symptoms (Recalled from RN notes): No Resp Symptoms (Recalled from RN notes): No Skin Symptoms (Recalled from RN notes): Yes (rash L leg, back and buttox) MS Symptoms (Recalled from RN notes): No Functional Status (Recalled from RN notes): na - History of Present Illness Provider Complaint: Patient states that they cut the grass and she got out there and was racking the grass and something got up her pants and was biting her starting around her knees up to her groin and buttock area State that she noticed it after she started itching when she got ready for bed and she took a shower State that she continued to have itching throughout the night and had some left over cream that she had been prescribed a couple years ago and put that on it but didnt help much State that today it is still itching and aggravating her so she came in to get something for the itching. - Related Data Home Medications Medication Instructions Recorded Confirmed ascorbic acid (vitamin C) 500 mg 1 gm PO DAILY tab 06/13/17 07/16/20 tablet nitroglycerin 0.4 mg sublingual 0.4 mg SUBLINGUAL Q5MINP PRN 06/13/17 07/16/20 tablet simvastatin 40 mg tablet 40 mg PO HS 06/13/17 07/16/20 Donepezil HCl [Aricept 5mg 5 mg PO HS 01/11/18 07/16/20 Tablet] Warfarin Sodium 3 mg PO 1600 01/11/18 07/16/20 Albuterol Sulfate [Proair Hfa 2 puffs IH QIDRT 04/17/18 07/16/20 90mcg/puff Inh] alendronate 10 mg tablet 10 mg PO DAILY tab 07/18/19 07/16/20 escitalopram oxalate 5 mg tablet 5 mg PO DAILY tab 07/18/19 07/16/20 Previous Rx's Medication Instructions Recorded Tramadol HCl/Acetaminophen 1 tab PO QID #0 04/18/18 [Ultracet Tablet] methocarbamoL [Methocarbamol 500mg 500 mg PO TID PRN #10 tab 02/05/20 Tablet] metoprolol tar
[2020-10-22 11:13] VITALS: BP 116/63; PULSE 70; RESP 20; TEMP 36.8
== END 2020-10-22 11:18 | disposition home or self-care (01) ==
PROVIDERS: Emergency Provider Nurse Practitioner; PCP Internal Medicine Adolescent Medicine
DX: S80.862A Insect bite (nonvenomous), left lower leg, initial encounter (principal); S80.861A Insect bite (nonvenomous), right lower leg, initial encounter; S30.860A Insect bite (nonvenomous) of lower back and pelvis, initial encounter; W57.XXXA Bitten or stung by nonvenomous insect and other nonvenomous arthropods, initial encounter; Y92.017 Garden or yard in single-family (private) house as the place of occurrence of the external cause; I25.10 Atherosclerotic heart disease of native coronary artery without angina pectoris; F03.90 Unspecified dementia, unspecified severity, without behavioral disturbance, psychotic disturbance, mood disturbance, and anxiety; E78.5 Hyperlipidemia, unspecified; I10 Essential (primary) hypertension; K21.9 Gastro-esophageal reflux disease without esophagitis; M81.0 Age-related osteoporosis without current pathological fracture; Z86.73 Personal history of transient ischemic attack (TIA), and cerebral infarction without residual deficits; Z79.899 Other long term (current) drug therapy
CPT/HCPCS: 85610; 99202; 99211; G0463

== ENCOUNTER 2020-10-22 11:34 | Outpatient (CLI) | payer MEDICARE, BC, SELFPAY ==
[2020-10-22 14:53] LABS: PHA INR Fingerstick 3.4 (0.9-1.1)
== END 2020-10-22 14:55 | disposition home or self-care (01) ==
LOC: ACC 11:36
PROVIDERS: PCP Internal Medicine Adolescent Medicine; Visit Provider Internal Medicine Adolescent Medicine
DX: Z79.01 Long term (current) use of anticoagulants (principal)
CPT/HCPCS: 85610; 99211; G0463

== ENCOUNTER 2020-11-10 12:47 | Outpatient (CLI) | payer MEDICARE, BC, SELFPAY ==
[2020-11-10 14:02] LABS: PHA INR Fingerstick 2.4 (0.9-1.1)
== END 2020-11-10 14:26 | disposition home or self-care (01) ==
LOC: ACC 12:48
PROVIDERS: PCP Internal Medicine Adolescent Medicine; Visit Provider Internal Medicine Adolescent Medicine
DX: Z51.81 Encounter for therapeutic drug level monitoring (principal); Z79.01 Long term (current) use of anticoagulants; Z95.2 Presence of prosthetic heart valve
CPT/HCPCS: 85610; 99211; G0463

== ENCOUNTER → 2020-12-17 15:47 | Outpatient (CLI) | payer MEDICARE, BC, SELFPAY ==
[2020-12-17 16:15] LABS: Basophils % 0.5 % (0.1-2.0); Eosinophils # 0.1 K/mm3 (0.0-0.4); Eosinophils % 1.8 % (0.1-12.0); Hematocrit 39.6 % (37.0-47.0); Lymphocytes # 1.4 K/mm3 (0.7-4.5); Lymphocytes % 23.5 % (10-50); Mean Corpuscular HGB Conc 32.7 g/dL (31.8-35.4); Mean Corpuscular Hemoglobin 34.1 pg (27.0-31.2); Mean Corpuscular Volume 104.1 fl (81-99); Mean Platelet Volume 9.5 fl (7.4-10.4); Monocytes # 0.4 K/mm3 (0.1-1.0); Monocytes % 6.7 % (1.7-9.3); Neutrophils # 3.9 K/mm3 (1.8-7.8); Neutrophils % 67.5 % (37.0-80.0); Platelet Count 100 K/mm3 (142-424); Red Cell Distribution Width 14.2 % (11.5-17.5); White Blood Count 5.8 K/mm3 (4.8-10.8)
[2020-12-17 16:34] LABS: Prothrombin Time 26.1 seconds (10.1-12.5)
[2020-12-17 16:49] LABS: Chloride 103 mmol/L (98-107); Potassium 4.2 mmoL/L (3.5-5.1); Sodium 141 mmol/L (136-145)
[2020-12-17 16:52] LABS: Alanine Aminotransferase 14 U/L (12-78); Albumin Level 4.3 g/dl (3.5-5.0); Albumin/Globulin Ratio 1.6 (1.1-1.8); Alkaline Phosphatase 63 U/L (38-126); Anion Gap 11.2 mEq/L (5-15); Aspartate Amino Transferase 37 U/L (14-36); Bilirubin,Total 0.7 mg/dl (0.2-1.3); Blood Urea Nitrogen 16 mg/dl (7-17); Calcium 9.2 mg/dl (8.4-10.2); Carbon Dioxide 31 mmol/L (22.0-30.0); Cholesterol 131 mg/dl (140-200); Estimated Glomerular Filt Rate 80 ml/min (>60); GFR (African American) 97 ML/MIN (>60); Globulin 2.7 g/dL (1.3-3.2); Glucose 75 mg/dl (74-100); Triglycerides 177 mg/dl (30-150); VLDL Cholesterol 35 mg/dL (0-40)
[2020-12-17 16:53] LABS: Chol/HDL Ratio 3.1 (1-3.5); HDL Cholesterol 42 mg/dl (40-60)
[2020-12-17 17:03] LABS: Direct LDL Cholesterol 57.41 mg/dL (100-129)
[2020-12-17 17:11] LABS: INR 2.36 (0.9-1.1)
[2020-12-17 17:17] LABS: 25-OH Vitamin D, Total 34.7 ng/mL (30-100)
== END ==
PROVIDERS: Visit Provider Internal Medicine Adolescent Medicine
DX: I10 Essential (primary) hypertension (principal); E78.5 Hyperlipidemia, unspecified; M81.0 Age-related osteoporosis without current pathological fracture; Z95.2 Presence of prosthetic heart valve
CPT/HCPCS: 36415; 80053; 80061; 82306; 85025; 85610

== ENCOUNTER 2020-12-28 14:44 | Inpatient (IN) | payer MEDICARE, BC, SELFPAY ==
[2020-12-28] VITALS (8 sets, daily range): BP systolic 126–148; BP diastolic 62–77; PULSE 68–90; RESP 18–20; TEMP 37.1; O2SAT 93–98; BMI 19.3; BMI 19.5
--- NOTE | 2020-12-28 15:18 | CT_ITS ---
PROCEDURE INFORMATION: Exam: CT Abdomen And Pelvis Without Contrast Exam date and time: 12/28/2020 3:18 PM Age: 85 years old Clinical indication: Injury or trauma; Fall; Blunt; Generalized TECHNIQUE: Imaging protocol: Computed tomography of the abdomen and pelvis without contrast. Radiation optimization: All CT scans at this facility use at least one of these dose optimization techniques: automated exposure control; mA and/or kV adjustment per patient size (includes targeted exams where dose is matched to clinical indication); or iterative reconstruction. COMPARISON: [facility] CT abdomen pelvis wo con 01/17/2018 12:31 AM FINDINGS: Lungs: Lung findings reported separately. Liver: Normal. No mass. Gallbladder and bile ducts: There has been a cholecystectomy. Pancreas: Normal. No ductal dilation. Spleen: Normal. No splenomegaly. Adrenal glands: Normal. No mass. Kidneys and ureters: Normal. No hydronephrosis. Stomach and bowel: Mild diverticulosis is present in the distal colon. Appendix: No evidence of appendicitis. Intraperitoneal space: Normal. No significant fluid collection. Vasculature: The vasculature demonstrates diffuse moderate atherosclerotic calcification. Lymph nodes: Unremarkable. No enlarged lymph nodes. Urinary bladder: Unremarkable as visualized. Reproductive: Unremarkable as visualized. Bones/joints: Compression deformities T12 and L3 are present, ages are indeterminate. Soft tissues: Soft tissues are normal. Other findings: Lack of IV contrast limits the study as well as decreases sensitivity and specificity. IMPRESSION: 1. Mild diverticulosis is present in the distal colon. 2. Compression deformities T12 and L3 are present, ages are indeterminate.
--- NOTE | 2020-12-28 15:18 | CT_ITS ---
PROCEDURE INFORMATION: Exam: CT Chest Without Contrast; Diagnostic Exam date and time: 12/28/2020 3:18 PM Age: 85 years old Clinical indication: Injury or trauma; Fall; Blunt trauma (contusions or hematomas) TECHNIQUE: Imaging protocol: Diagnostic computed tomography of the chest without contrast. 3D rendering (Not supervised by radiologist): MIP and/or 3D reconstructed images were created by the technologist. Radiation optimization: All CT scans at this facility use at least one of these dose optimization techniques: automated exposure control; mA and/or kV adjustment per patient size (includes targeted exams where dose is matched to clinical indication); or iterative reconstruction. COMPARISON: CT CERVICAL SPINE WO CON 12/28/2020 3:56 PM FINDINGS: Tubes, catheters and devices: A pacemaker device is present, and its leads are in appropriate position. Lungs: The lungs are hyperinflated, consistent with underlying small airways disease. Atelectatic changes noted within both lung bases. Pleural spaces: There are no pleural effusions present. Heart: The heart demonstrates mild diffuse enlargement. There is moderate atherosclerotic calcification of the coronary arteries. Aorta: Ectatic changes of the ascending thoracic aorta measuring up to 4.1 cm. The vasculature demonstrates diffuse moderate atherosclerotic calcification. Lymph nodes: There is no evidence of mediastinal or hilar lymphadenopathy. Bones/joints: There are sternal wires consistent with previous sternotomy incision. Compression deformities T1 and T12 are present, ages are indeterminate. Soft tissues: Unremarkable. IMPRESSION: 1. The lungs are hyperinflated, consistent with underlying small airways disease. 2. The heart demonstrates mild diffuse enlargement. 3. Ectatic changes of the ascending thoracic aorta measuring up to 4.1 cm. 4. Atelectatic changes noted within both lung bases. 5. Compression deformities T1 and T12 are present, ages are indeterminate.
--- NOTE | 2020-12-28 15:18 | CT_ITS ---
PROCEDURE INFORMATION: Exam: CT Cervical Spine Without Contrast Exam date and time: 12/28/2020 3:18 PM Age: 85 years old Clinical indication: Injury or trauma; Fall; Blunt trauma TECHNIQUE: Imaging protocol: Computed tomography images of the cervical spine without contrast. Radiation optimization: All CT scans at this facility use at least one of these dose optimization techniques: automated exposure control; mA and/or kV adjustment per patient size (includes targeted exams where dose is matched to clinical indication); or iterative reconstruction. COMPARISON: CT CERVICAL SPINE WO CON 02/05/2020 4:25 PM FINDINGS: Bones/joints: Osteopenia. There is a chronic severe T4 vertebral body compression fracture deformity which is unchanged compared with 02/05/2020, with chronic upper thoracic kyphosis. No acute appearing fracture in the thoracic spine, compared with 02/05/2020. Chronic degenerative osteoarthrosis anteriorly at C1-C2 with periarticular spurs, some cortical erosions, synovial thickening and periarticular calcifications.There are no lytic skeletal lesions seen. Discs/Spinal canal/Neural foramina: There are chronic mild anterior subluxations at C3-C4, and C6-C7, up to 2-3 mm, unchanged. These appear likely degenerative, there is severe multilevel cervical facet arthropathy. There is chronic diffuse cervical spine disc degeneration, which appears greatest at C4-C5 with a partially calcified posterior disc protrusion or disc-osteophyte complex indenting the thecal sac, and there are milder disc bulges and spondylosis at the other levels. There is no significant central spinal stenosis. There is multilevel degenerative foraminal stenosis, which appears greatest at the C4 foramina on axial series 3, image 38, and right C6 foramen on axial series 3, image 47. Sinuses: Sinus disease, with bilateral maxillary sinus air-fluid levels, and bilateral ethmoid-sphenoid sinus mucosal thickening. Lungs: No acute findings in the visualized lung apices. Vasculature: Atherosclerotic calcified plaques noted in the cervical carotid arteries and in the upper mediastinum. Soft tissues: Posterior left scalp contusion, see head CT report for detailed head findings. No acute findings in the paraspinous soft tissues. No prevertebral swelling.There are no soft tissue masses or fluid collections. IMPRESSION: 1. No acute fracture or high-grade listhesis, compared with 02/05/2020. 2. Severe chronic T4 vertebral compression fracture deformity noted. 3. Severe cervical facet arthropathy with multiple chronic mild subluxations, no high-grade listhesis. 4. Prominent multilevel degenerative disc disease and spondylosis. No high-grade spinal stenosis. Chronic multilevel foraminal stenoses, as detailed above. 5. Dfijm-je-ovbhbti sinusitis with bilateral maxillary sinus air-fluid levels. 6. Additional nonemergency and chronic findings as above.
--- NOTE | 2020-12-28 15:18 | CT_ITS ---
PROCEDURE INFORMATION: Exam: CT Head Without Contrast Exam date and time: 12/28/2020 3:18 PM Age: 85 years old Clinical indication: Injury or trauma; Fall; Blunt trauma (contusions or hematomas) TECHNIQUE: Imaging protocol: Computed tomography of the head without contrast. Radiation optimization: All CT scans at this facility use at least one of these dose optimization techniques: automated exposure control; mA and/or kV adjustment per patient size (includes targeted exams where dose is matched to clinical indication); or iterative reconstruction. COMPARISON: CT HEAD/BRAIN WO CON 02/05/2020 4:25 PM FINDINGS: Brain: There is moderate generalized cerebral atrophy. No acute intracranial findings. No intracranial hemorrhage. No edema, swelling or mass-effect. Chronic patchy white matter disease in both cerebral hemispheres. Chronic falcine calcifications. Cerebral ventricles: The ventricles are normal for age. No significant hydrocephalus. Paranasal sinuses: There are small air-fluid levels in both maxillary sinuses. There is moderate bilateral ethmoid sinus mucosal thickening with some air-fluid levels within posterior ethmoid air cells, and there is mild sphenoid mucosal thickening. Mastoid air cells: Mastoids are unremarkable as visualized, no effusions. Orbital cavity: No acute findings in the visualized orbits. Correlate for history of bilateral lens replacement surgery. Vasculature: There are atherosclerotic calcified plaques in the intracranial carotid and vertebral arteries. Bones/joints: No acute skull fracture. No lytic lesions. Soft tissues: Posterior left parietal scalp contusion with cephalhematoma. Posterior right occipital soft tissue contusion with subcutaneous edema. IMPRESSION: 1. No acute intracranial injury or skull fracture. 2. Posterior left parietal and right occipital scalp contusions. 3. Tsdup-ca-fmnoepf sinusitis, with bilateral maxillary sinus air-fluid levels, and posterior ethmoid air fluid levels. 4. Chronic senescent changes as above, with cerebral atrophy, white matter disease and atherosclerotic disease. 5. There is no CT evidence of intracranial mass, intracranial hemorrhage, or acute infarct.
[2020-12-28 16:46] LABS: Microscopic, Urine URINE MICROSCOPIC (MICROSCOPIC)
--- NOTE | 2020-12-28 16:46 | HMH.EDFALL ---
ED Disposition Clinical Impression: Head contusion Qualifiers: Encounter type: initial encounter Contusion of head detail: scalp Qualified Code(s): S00.03XA - Contusion of scalp, initial encounter UTI (urinary tract infection) Qualifiers: Urinary tract infection type: acute cystitis Hematuria presence: with hematuria Qualified Code(s): N30.01 - Acute cystitis with hematuria Rhabdomyolysis Qualifiers: Rhabdomyolysis type: traumatic Encounter type: initial encounter Qualified Code(s): T79.6XXA - Traumatic ischemia of muscle, initial encounter Disposition: Admitted As Inpatient Condition on Discharge: Good Referrals: Nazario Burk MD [Primary Care Provider] - - Critical Care Critical Care Time: No Attestation: On 12/28/20, the high probability of a clinically significant, sudden or life threatening deterioration of the following system(s) required my full and direct attention, intervention and personal management. The time I documented below is in addition to time spent performing reported procedures but includes the following listed in this critical care notation. Medical Decision Making - Medical Records Medical records reviewed: Yes: I reviewed the patient's medical records. - [place] Inquiry Pt receiving controlled substance: No Vital Signs: 12/28/20 14:45 Temperature 98.8 F Temperature Source Oral Pulse Rate [Left Radial] 72 Respiratory Rate 18 Blood Pressure [Right Arm] 148/65 H Blood Pressure Mean [Right Arm] 92 Blood Pressure Source [Right Arm] Automatic Cuff 02 Sat by Pulse Oximetry 94 L Oxygen Delivery Method Room Air - Lab Data Lab Results 12/28/20 16:40: Urine Color Yellow, Urine Appearance Clear, Urine pH 6.0, Ur Specific [place] >= 1.030, Urine Protein 2+, Urine Glucose (UA) Negative, Urine Ketones 2+, Urine Blood 3+, Urine Nitrate Positive, Urine Bilirubin Negative, Urine Urobilinogen 0.2, Ur Leukocyte Esterase 1+ A, Urine RBC 5-10, Urine WBC 10-20, Ur Squamous Epith Cells 3-5, Urine Bacteria 3+ 12/28/20 16:40: WBC 6.5, RBC 4.13 L, Hgb 14.3, Hct 43.1, MCV 104.4 H, MCH 34.6 H, MCHC 33.1, RDW 13.6, Plt Count 116 L, MPV 9.3, Neut % (Auto) 79.0, Lymph % (Auto) 15.2, [place] % (Auto) 5.5, Eos % (Auto) 0.0 L, Baso % (Auto) 0.3, Neut # (Auto) 5.2, Lymph # (Auto) 1.0, [place] # (Auto) 0.4, Eos # (Auto) 0.0, Baso # (Auto) 0.0 12/28/20 16:40: PT 29.6 H, INR 2.70 H, APTT 38.2 H 12/28/20 16:40: Sodium 142, Potassium 3.4 L, Chloride 106, Carbon Dioxide 24, Anion Gap 15.4 H, BUN 26 H, Creatinine 0.70, Estimated Creat Clear 33, Estimated GFR 80, Est GFR ( Amer) 97, Glucose 118 H, Calcium 8.8, Total Bilirubin 1.5 H, AST 145 H, ALT 35, Alkaline Phosphatase 70, Total Creatine Kinase 1520 H*, Troponin I 0.05 H, NT-Pro-B Natriuret Pep 2700 H, Total Protein 7.2, Albumin 4.1, Globulin 3.1, Albumin/Globulin Ratio 1.3, Lipase 46 12/28/20 16:40: Lactate 1.4 Result diagrams: 12/28/20 16:40 12/28/20 16:40 Orders (Tests/Meds): ED MEDICATIONS Generic Name Dose Route Start Last Admin Trade Name Freq PRN Reason Stop Dose Admin Sodium Chloride 1,000 mls @ 999 mls/hr 12/28/20 17:15 12/28/20 17:17 Sod Chlor 0.9% 1000ml Bag IV 12/28/20 18:15 999 mls/hr .Q1H1M GABRIEL Administration ORDERS Category Date Time Status Rapid PCR Covid and Flu A/B Stat Lab 12/28/20 17:23 Received Troponin I Q3H Lab 12/28/20 18:30 Ordered Troponin I Q3H Lab 12/28/20 21:30 Ordered Urine Culture Stat Micro 12/28/20 16:40 Received - CT Data CT Scan: Head, C-Spine, Abdomen, Pelvis, Chest Time Received: 17:[address] Reviewed: Yes: I have reviewed the patient's CT results, I have viewed the radiologist's interpretation Findings Narrative: IMPRESSION: 1. No acute intracranial injury or skull fracture. 2. Posterior left parietal and right occipital scalp contusions. 3. Utccj-hd-zroukqh sinusitis, with bilateral maxillary sinus air-fluid levels, and posterior ethmoid air fluid levels. 4. Chronic senescent mena
[2020-12-28 16:47] LABS: Basophils % 0.3 % (0.1-2.0); Hematocrit 43.1 % (37.0-47.0); Hemoglobin 14.3 g/dL (12.2-16.2); Lymphocytes % 15.2 % (10-50); Mean Corpuscular HGB Conc 33.1 g/dL (31.8-35.4); Mean Corpuscular Hemoglobin 34.6 pg (27.0-31.2); Mean Corpuscular Volume 104.4 fl (81-99); Mean Platelet Volume 9.3 fl (7.4-10.4); Monocytes # 0.4 K/mm3 (0.1-1.0); Monocytes % 5.5 % (1.7-9.3); Neutrophils # 5.2 K/mm3 (1.8-7.8); Platelet Count 116 K/mm3 (142-424); Red Blood Count 4.13 M/mm3 (4.20-5.40); Red Cell Distribution Width 13.6 % (11.5-17.5); White Blood Count 6.5 K/mm3 (4.8-10.8)
[2020-12-28 16:53] LABS: Chloride 106 mmol/L (98-107); Potassium 3.4 mmoL/L (3.5-5.1); Sodium 142 mmol/L (136-145)
[2020-12-28 16:55] LABS: Alanine Aminotransferase 35 U/L (12-78); Aspartate Amino Transferase 145 U/L (14-36); Blood Urea Nitrogen 26 mg/dl (7-17); Creatinine Clearance Estimated 33 mL/min (50-200); Estimated Glomerular Filt Rate 80 ml/min (>60); GFR (African American) 97 ML/MIN (>60)
[2020-12-28 16:56] LABS: Albumin Level 4.1 g/dl (3.5-5.0); Albumin/Globulin Ratio 1.3 (1.1-1.8); Alkaline Phosphatase 70 U/L (38-126); Anion Gap 15.4 mEq/L (5-15); Bilirubin,Total 1.5 mg/dl (0.2-1.3); Calcium 8.8 mg/dl (8.4-10.2); Carbon Dioxide 24 mmol/L (22.0-30.0); Creatine Kinase 1520 U/L (30-135); Globulin 3.1 g/dL (1.3-3.2); Glucose 118 mg/dl (74-100); Lipase 46 U/L (23-300); Total Protein,Serum 7.2 g/dl (6.3-8.2)
[2020-12-28 16:57] LABS: Appearance,Urine CLEAR (Clear); Bilirubin,Urine Negative (Negative); Blood, Urine 3+ (Negative); Color,Urine YELLOW (Yellow); Glucose,Urine (UA) Negative (Negative); Ketones,Urine 2+ (Negative); Lactic Acid 1.4 mmol/L (0.7-2.1); Leukocyte Esterase,Urine 1+ (Negative); Nitrate,Urine POSITIVE (Negative); Protein,Urine 2+ (Negative); Specific Gravity, Urine >= 1.030 (1.005-1.030); Urobilinogen,Urine 0.2 EU/dl (0.2)
[2020-12-28 16:58] LABS: Activated Partial Thrombo Time 38.2 seconds (22.8-30.6); Prothrombin Time 29.6 seconds (10.1-12.5)
[2020-12-28 17:05] LABS: NT Pro Brain Natriuretic Pep. 2700 pg/mL (0-450)
[2020-12-28 17:09] LABS: Troponin I 0.05 ng/ml (0.00-0.034)
[2020-12-28 17:13] LABS: Bacteria,Urine 3+ /lpf
[2020-12-28 17:30] LABS: Coronavirus 19, PCR Not Detected (NotDetected); Influenza A, PCR Not Detected (NotDetected); Influenza B, PCR Not Detected (NotDetected)
--- NOTE | 2020-12-28 17:30 | PC.NURSE ---
ER speaking with Dr Guerin for admission
--- NOTE | 2020-12-28 18:09 | PC.NURSE ---
Report given to Yamile HOGUE
[2020-12-29 03:49] VITALS: BP 144/76; PULSE 60; RESP 16; TEMP 36.5; O2SAT 95
--- NOTE | 2020-12-29 05:16 | PC.NURSE ---
At beginning of shift pt. able to state name, , year and place and could follow commands. As the shift progressed pt. became increasingly confused and only alert to self. Safety precautions in place. Independently t/r. One loose bm noted. Pt. c/o soreness upon movement; is very weak and needs assistance to sit up, etc. Pt. resting in bed with eyes closed at this time.
[2020-12-29 05:23] VITALS: BMI 19.6
[2020-12-29 07:17] LABS: Eosinophils % 0.2 % (0.1-12.0); Hematocrit 37.3 % (37.0-47.0); Lymphocytes # 1.3 K/mm3 (0.7-4.5); Mean Corpuscular HGB Conc 32.9 g/dL (31.8-35.4); Monocytes # 0.4 K/mm3 (0.1-1.0)
--- NOTE | 2020-12-29 07:20 | HMH.PHAVTE ---
[facility] VTE Monitoring - Patient Demographics Admission date: 12/28/20 Report Date: 12/29/20 Time: 07:20 Allergies/Adverse Reactions: Patient Allergies Sulfa (Sulfonamide Antibiotics) [SULFA (SULFONAMIDE ANTIBIOTICS)] Allergy (Severe, Verified 10/22/20 10:41) Difficulty Breathing Height: 1.55 m Weight: 47.287 kg Patient Problems: Current Active Problems Head contusion (Acute) UTI (urinary tract infection) (Acute) Rhabdomyolysis (Acute) - VTE Risk Labs: VTE Related Lab Results Hgb 14.3 g/dL (12.2-16.2) 12/28/20 16:40 Hct 43.1 % (37.0-47.0) 12/28/20 16:40 Plt Count 116 K/mm3 (142-424) L 12/28/20 16:40 PT 29.6 seconds (10.1-12.5) H 12/28/20 16:40 INR 2.70 (0.9-1.1) H 12/28/20 16:40 APTT 38.2 seconds (22.8-30.6) H 12/28/20 16:40 BUN 26 mg/dl (7-17) H 12/28/20 16:40 Creatinine 0.70 mg/dl (0.52-1.04) 12/28/20 16:40 Estimated Creat Clear 33 mL/min (50-200) 12/28/20 16:40 - Prophylaxis VTE Prophylaxis Ordered?: Yes Types of VTE Prophylaxis: TEDS Knee High, Pharmacological Location of Applied Device: Bilateral Lower Extremeties Pharmacologic Type: Warfarin
[2020-12-29 07:37] LABS: Basophils % 0.3 % (0.1-2.0); Chloride 114 mmol/L (98-107); Lymphocytes % 22.6 % (10-50); Mean Corpuscular Hemoglobin 34.6 pg (27.0-31.2); Mean Corpuscular Volume 105.2 fl (81-99); Monocytes % 6.2 % (1.7-9.3); Neutrophils % 70.6 % (37.0-80.0); Platelet Count 103 K/mm3 (142-424); Potassium 3.3 mmoL/L (3.5-5.1); Red Blood Count 3.54 M/mm3 (4.20-5.40); Red Cell Distribution Width 13.5 % (11.5-17.5); Sodium 145 mmol/L (136-145); White Blood Count 5.7 K/mm3 (4.8-10.8)
[2020-12-29 07:39] LABS: Hemoglobin 12.2 g/dL (12.2-16.2)
[2020-12-29 07:40] LABS: Alanine Aminotransferase 30 U/L (12-78); Albumin Level 3.1 g/dl (3.5-5.0); Albumin/Globulin Ratio 1.2 (1.1-1.8); Alkaline Phosphatase 54 U/L (38-126); Anion Gap 11.3 mEq/L (5-15); Aspartate Amino Transferase 116 U/L (14-36); Bilirubin,Total 0.9 mg/dl (0.2-1.3); Blood Urea Nitrogen 22 mg/dl (7-17); Calcium 7.6 mg/dl (8.4-10.2); Carbon Dioxide 23 mmol/L (22.0-30.0); Creatinine Clearance Estimated 32 mL/min (50-200); Estimated Glomerular Filt Rate 95 ml/min (>60); GFR (African American) 116 ML/MIN (>60); Globulin 2.6 g/dL (1.3-3.2); Glucose 98 mg/dl (74-100); Total Protein,Serum 5.7 g/dl (6.3-8.2)
[2020-12-29 08:00] VITALS: BP 142/55; PULSE 63; RESP 16; TEMP 36.4; O2SAT 95
[2020-12-29 08:32] LABS: Creatine Kinase 1125 U/L (30-135)
--- NOTE | 2020-12-29 08:54 | HMH.HP ---
*Admission Date: 12/28/20 *Chief complaint: Fall with rhabdomyolysis *History of present illness: 85-year-old white female with history of mechanical valve, warfarin therapy and chronic debility with frequent falls, who fell at home a couple of days ago and apparently was not found until the next night. She was brought to the hospital. She was found to have elevated CPK, extremely weak, lots of muscle aches. Creatinine was not elevated. Admitted for IV fluids and further diagnostic testing. [facility] History I have reviewed the patient's past medical history: Yes Medical History: Reports:: Arrhythmia, Cardiomyopathy, Congenital Heart Disease, Coronary Artery Disease, Cerebrovascular Accident, Dementia, Gastroesophageal Reflux Disease(GERD), Heart Murmur, Hyperlipidemia, Hypertension, Internal Pacemaker, Osteoporosis, Palpitations, Valvular Heart Disease Denies:: Cancer, Diabetes Mellitus Type 1, Diabetes Mellitus Type 2, MRSA, Seizures *Have you ever received a pneumonia vaccine?: Yes *Have you received a flu vaccine this season?: Yes Other Medical History: Reports: Anemia, Arthritis, Cataracts, Osteoporosis. Denies: Blood Transfusion Reaction Laterality Cases: Bilateral: Myringotomy (Ear Tubes) Other Surgeries: Yes: Cholecystectomy, Colonoscopy, Hysterectomy-Total, Hysterectomy-Partial, Pacemaker, Other Amputation: No Fractures: No - *Social History Smoking Status: Never smoker Alcohol Intake: never Alcohol Intake Frequency:: other Substance Use Type: denies use *Occupational Status:: disabled Housing: house Household Members: none *Travel in the last 8 weeks: None Family Hx:: Unable to obtain Review of Systems - Review of Systems Review of systems:: pertinent systems reviewed and negative unless documented below - *Neurologic Denies headache(s) Meds Home Medications Medication Instructions Recorded Confirmed Type ascorbic acid (vitamin C) 500 mg 1 gm PO DAILY tab 06/13/17 12/28/20 History tablet simvastatin 40 mg tablet 40 mg PO HS 06/13/17 12/28/20 History Donepezil HCl [Aricept 5mg 5 mg PO HS 01/11/18 12/28/20 History Tablet] Warfarin Sodium 3 mg PO 1600 01/11/18 12/28/20 History Tramadol HCl/Acetaminophen 1 tab PO QID #0 04/18/18 12/28/20 Rx [Ultracet Tablet] alendronate 10 mg tablet 10 mg PO DAILY tab 07/18/19 12/28/20 History Losartan Potassium [Cozaar 50mg 50 mg PO DAILY 12/28/20 12/28/20 History Tablets] Metoprolol Tartrate 50 mg PO BID 12/28/20 12/28/20 History Promethazine/Dextromethorphan 6.25 mg PO Q6 PRN 12/28/20 12/28/20 History [Promethazine-Dm 6.25-15 mg/5Ml] guaiFENesin [Mucinex 600mg tablet] 600 mg PO BID 12/28/20 12/28/20 History Escitalopram Oxalate 5 mg PO DAILY 12/29/20 12/29/20 History Allergies Allergy/AdvReac Type Severity Reaction Status Date / Time Sulfa (Sulfonamide Allergy Severe Difficulty Verified 10/22/20 10:41 Antibiotics) Breathing [SULFA (SULFONAMIDE ANTIBIOTICS)] Exam Vital signs and Labs for Last 24 Hours: Temp Pulse Resp BP Pulse Ox 97.6 F 63 16 142/55 H 95 12/29/20 08:00 12/29/20 08:00 12/29/20 08:00 12/29/20 08:00 12/29/20 08:00 Laboratory Results - last 24 hr 12/28/20 16:40: Urine Color Yellow, Urine Appearance Clear, Urine pH 6.0, Ur Specific [place] >= 1.030, Urine Protein 2+, Urine Glucose (UA) Negative, Urine Ketones 2+, Urine Blood 3+, Urine Nitrate Positive, Urine Bilirubin Negative, Urine Urobilinogen 0.2, Ur Leukocyte Esterase 1+ A, Urine RBC 5-10, Urine WBC 10-20, Ur Squamous Epith Cells 3-5, Urine Bacteria 3+ 12/28/20 16:40: WBC 6.5, RBC 4.13 L, Hgb 14.3, Hct 43.1, MCV 104.4 H, MCH 34.6 H, MCHC 33.1, RDW 13.6, Plt Count 116 L, MPV 9.3, Neut % (Auto) 79.0, Lymph % (Auto) 15.2, [place] % (Auto) 5.5, Eos % (Auto) 0.0 L, Baso % (Auto) 0.3, Neut # (Auto) 5.2, Lymph # (Auto) 1.0, [place] # (Auto) 0.4, Eos # (Auto) 0.0, Baso # (Auto) 0.0 12/28/20 16:40: PT 29.6 H, INR 2.70 H, APTT 38.2 H 12/28/20 16:40: Sodium 142, P
--- NOTE | 2020-12-29 10:56 | HMH.PHAINT ---
MEDICATION RECONCILIATION COMPLETED USING PHARMACY FILL HISTORY AND PATIENT INTERVIEW.
--- NOTE | 2020-12-29 10:58 | HMH.OTEV ---
OT Inpatient Evaluation Rehab OT IP Evaluation Start: 12/29/20 08:53 Freq: ONCE Status: Complete Protocol: Document 12/29/20 10:46 BIANCA (Rec: 12/29/20 10:57 BIANCA [id number]) Rehab OT IP Assessment Subjective History *Admission Date: 12/28/20 *Chief complaint: Fall with rhabdomyolysis *History of present illness: 85-year-old white female with history of mechanical valve, warfarin therapy and chronic debility with frequent falls, who fell at home a couple of days ago and apparently was not found until the next night . She was brought to the hospital. She was found to have elevated CPK, extremely weak, lots of muscle aches. Creatinine was not elevated. Admitted for IV fluids and further diagnostic testing. [facility] History I have reviewed the patient's past medical history: Yes Medical History: Reports:: Arrhythmia, Cardiomyopathy, Congenital Heart Disease, Coronary Artery Disease, Cerebrovascular Accident, Dementia, Gastroesophageal Reflux Disease(GERD), Heart Murmur, Hyperlipidemia, Hypertension, Internal Pacemaker, Osteoporosis, Palpitations, Valvular Heart Disease Patient lives alone in a one story home with 2-3 STEPHANIE. Patient used rollator to ambulate within home. Patient verbalize being independent with ADLs and daugther assisted with transportation and housekeeping tasks as needed. Subjective I can get up. Instructed Patient on safety awareness during bed mobility of supine->sit->EOB requiring Min A. Instructed Patient on
--- NOTE | 2020-12-29 11:42 | HMH.PTEV ---
Physical Therapy Evaluation Rehab PT IP Evaluation Start: 12/29/20 08:53 Freq: ONCE Status: Active Protocol: Document 12/29/20 11:21 TONIO (Rec: 12/29/20 11:41 TONIO [id number]) Subjective/History History History Pt is 85 year old female admitted to [facility] after unwitnessed fall at home. Pt was unable to get up from fall and found at home 1 day later . Subjective Subjective Pt reported feeling weak and fatigued this morning but wanted to get out of bed to walk with PT. Pt stated she lives alone in one level home and uses a rolling walker as needed. Pt stated family lives nearby and checks on her throughout the week. Eval completed by STEPHANIE Moreno . Rehab PT IP Eval Objective Appearance Patient Behavior Appropriate,Cooperative Patient Orientation Place,Name,Birthday,Year Difficulty following instructions none Speech Pattern Clear,Appropriate,Coherent Ambulation Patient Able to Ambulate Yes Ambulation Observation IP General Gait Pattern Observation Wide Based Gait,Shuffling Step Ambulation Distance (feet) 80 Ambulation Assistive Device Rolling Walker Ambulation Ability Contact Guard/Hand Hold Balance Ability to Arise Able, uses arms to help Sitting Balance Steady, safe Standing Balance Steady, wide stance Dynamic Sitting Balance Ability Good Dynamic Standing Balance Ability Good Transfers Bed Transfer Ability Contact Guard/Hand Hold Chair Transfer Ability Contact Guard/Hand Hold Sit to Stand Bed Transfer Ability Contact Guard/Hand Hold, Minimal x 1 (25% assist) MMT All Extremities PT MMT WFL Rehab PT IP prob,goals,plan Problems Date of Evaluation: 12/29/20 PT IP Problems Bed Mobility,Transfers,Gait, Balance,Safety Rehab Potential Rehab Potential Good Equipment Needs Assistive Devices Rolling / Wheeled Walker Plan PT Intervention Plan Bed Mobility,Transfers,Gait, Balance,Safety,Therapeutic Exercise PT Plan Frequency BID Duration LOS Discharge Goals Bed Transfer Ability Contact Guard/Hand Hold Sit to [place]
[2020-12-29 12:53] VITALS: BMI 19.5
--- NOTE | 2020-12-29 14:00 | SW/DCPLANNER ---
Addendum entered by Hilda Perez 12/30/20 10:12: SPOKE WITH PATIENT AND DAUGHTER THIS MORNING AFTER MAKING ROUNDS....PATIENT HAS USED [facility] IN THE PAST FOR HOME HEALTH AND WISHES TO USE THEIR SERVICES AGAIN... I CALLED AND FAXED ORDERS TO [facility] THIS MORNING FOR PATIENT TO START SERVICES [facility].. SHE WILL RECEIVE HOME HEALTH PT/OT, FDC AND MED MANAGEMENT...DAUGHTER IS AT BEDSIDE AND WILL BE TAKING PATIENT HOME... Original Note: CALLED THE DAUGHTER OF THIS PATIENT AND SPOKE TO HER ABOUT WHAT THE PLAN IS FOR HER MOTHER POST HOSPITAL STAY...SHE STATED SHE WAS IN THE ROOM WHEN HER MOTHER HAD HER PT EVAL AND ACTUALLY DID WELL.. DR ALDRIDGE STATED SHE COULD RETURN HOME WITH HOME HEALTH SERVICES... I WILL SET HER UP IN THE AM FOR HOME HEALTH PT/OT SERVICES AND SOME FDC FOR A HOME SAFETY TO ENSURE HER HOME IS SAFE ENOUGH TO RETURN HOME ALONE.. PATIENT HAS HAD [facility] IN THE PAST AND WISHES TO USE THEIR SERVICES AGAIN...
[2020-12-29 15:19] VITALS: BP 127/76; PULSE 72; RESP 16; TEMP 36.2; O2SAT 94
--- NOTE | 2020-12-29 17:49 | PC.NURSE ---
SHE HAS BEEN UP TO CHAIR FOR MOST OF SHIFT AND TOLERATED WELL, FAMILY VISITED FOR MOST OF THE DAY, SHE HAS NOT C/O PAIN THIS SHIFT, SHE HAS BEEN ABLE TO ANSWER QUESTIONS APPROPRIATELY AND MAKE NEEDS KNOWN TO STAFF, HER VS HAVE REMAINED STABLE T/O SHIFT.
[2020-12-29 20:00] VITALS: BP 146/56; PULSE 64; RESP 20; TEMP 36.8; O2SAT 96
--- NOTE | 2020-12-30 03:17 | PC.NURSE ---
Patient has been alert and oriented. She has been pleasant this shift with no complaints. She has rested well. IV is infusing NS at 100ml/hr per order. Expiratory rhonchi noted throughout bilateral lungs. Vital signs are stable, call light within reach, will continue to monitor.
[2020-12-30 03:56] VITALS: BP 153/72; PULSE 67; RESP 18; TEMP 36.9; O2SAT 96
[2020-12-30 05:17] VITALS: BMI 20.7
[2020-12-30 06:49] LABS: Basophils % 0.7 % (0.1-2.0); Eosinophils # 0.1 K/mm3 (0.0-0.4); Eosinophils % 0.8 % (0.1-12.0); Hematocrit 35.5 % (37.0-47.0); Hemoglobin 11.8 g/dL (12.2-16.2); Lymphocytes # 1.2 K/mm3 (0.7-4.5); Lymphocytes % 20.3 % (10-50); Mean Corpuscular HGB Conc 33.2 g/dL (31.8-35.4); Mean Corpuscular Hemoglobin 34.8 pg (27.0-31.2); Mean Corpuscular Volume 104.9 fl (81-99); Mean Platelet Volume 8.9 fl (7.4-10.4); Monocytes # 0.3 K/mm3 (0.1-1.0); Neutrophils # 4.3 K/mm3 (1.8-7.8); Neutrophils % 73.1 % (37.0-80.0); Platelet Count 103 K/mm3 (142-424); Red Blood Count 3.39 M/mm3 (4.20-5.40); Red Cell Distribution Width 13.5 % (11.5-17.5); White Blood Count 5.9 K/mm3 (4.8-10.8)
[2020-12-30 06:59] LABS: Chloride 113 mmol/L (98-107); Sodium 142 mmol/L (136-145)
[2020-12-30 07:01] LABS: Alanine Aminotransferase 29 U/L (12-78); Alkaline Phosphatase 53 U/L (38-126); Aspartate Amino Transferase 93 U/L (14-36); Blood Urea Nitrogen 17 mg/dl (7-17); Creatinine Clearance Estimated 33 mL/min (50-200); Estimated Glomerular Filt Rate 118 ml/min (>60); GFR (African American) 143 ML/MIN (>60); Prothrombin Time 32.1 seconds (10.1-12.5)
[2020-12-30 07:02] LABS: Albumin Level 2.9 g/dl (3.5-5.0); Albumin/Globulin Ratio 1.1 (1.1-1.8); Calcium 7.5 mg/dl (8.4-10.2); Carbon Dioxide 23 mmol/L (22.0-30.0); Creatine Kinase 591 U/L (30-135); Globulin 2.6 g/dL (1.3-3.2); Glucose 87 mg/dl (74-100); Total Protein,Serum 5.5 g/dl (6.3-8.2)
[2020-12-30 07:14] LABS: INR 2.95 (0.9-1.1)
[2020-12-30 08:00] VITALS: BP 149/69; PULSE 61; RESP 18; TEMP 36.6; O2SAT 97
--- NOTE | 2020-12-30 08:42 | HMH.DCSUM ---
General - General Admission date:: 12/28/20 Discharge date: 12/30/20 HPI HPI: 85-year-old white female with history of mechanical valve, warfarin therapy and chronic debility with frequent falls, who fell at home a couple of days ago and apparently was not found until the next night. She was brought to the hospital. She was found to have elevated CPK, extremely weak, lots of muscle aches. Creatinine was not elevated. Admitted for IV fluids and further diagnostic testing. Hospital Course Hospital Course: Ms. Irwin was admitted for rhabdomyolysis, concern for UTI, kidney injury. Has responded well to IV fluids. Creatinine kinase continuing to trend down. Tolerating good p.o. intake. Physical therapy assessed patient during hospitalization, would benefit from home health for continued PT and medication management. Has remained afebrile during hospitalization. Urine cultures returned with E. coli that is pansensitive. Will transition oral antibiotics to complete empiric course. Examined on day of discharge. Daughter at bedside with her. Questions answered. Denies shortness of breath, nausea, vomiting, confusion. Complains of some weakness and mild cough. Medically stable for discharge home Objective Vital signs: Temp Pulse Resp BP Pulse Ox 97.8 F 61 18 149/69 H 97 12/30/20 08:00 12/30/20 08:00 12/30/20 08:00 12/30/20 08:00 12/30/20 08:00 no acute distress, chronically ill appearing - *Routine HEENT Exam Head: Present: normocephalic Eye: Present: EOMI, PERRL ENT: Present: mucous membranes moist - *Routine Neck Exam Present: supple - *Routine Respiratory Exam Present: CTA bilaterally, rhonchi. Absent: wheezes, crackles - *Routine Cardiovascular Exam Present: RRR - *Routine Abdominal Exam Present: soft, normoactive bowel sounds. Absent: tenderness - *Routine Extremities Exam Absent: cyanosis, clubbing, edema - *Routine Skin Exam Present: warm. Absent: rash Results Labs on day of discharge: Labs from last 24 hours 12/30/20 12/30/20 12/30/20 06:36 06:36 06:36 WBC 5.9 RBC 3.39 L Hgb 11.8 L Hct 35.5 L MCV 104.9 H MCH 34.8 H MCHC 33.2 RDW 13.5 Plt Count 103 L MPV 8.9 Neut % (Auto) 73.1 Lymph % (Auto) 20.3 [place] % (Auto) 5.0 Eos % (Auto) 0.8 Baso % (Auto) 0.7 Neut # (Auto) 4.3 Lymph # (Auto) 1.2 [place] # (Auto) 0.3 Eos # (Auto) 0.1 Baso # (Auto) 0.0 PT 32.1 H INR 2.95 H Sodium 142 Potassium 3.0 L Chloride 113 H Carbon Dioxide 23 Anion Gap 9.0 BUN 17 Creatinine 0.50 L Estimated Creat Clear 33 Estimated GFR 118 Est GFR ( Amer) 143 D Glucose 87 Calcium 7.5 L Total Bilirubin 1.0 AST 93 H ALT 29 Alkaline Phosphatase 53 Total Creatine Kinase 591 H* D Total Protein 5.5 L Albumin 2.9 L Globulin 2.6 Albumin/Globulin Ratio 1.1 DS: Diagnosis - Discharge Diagnosis (1) Head contusion Status: Acute (2) Rhabdomyolysis Status: Acute (3) UTI (urinary tract infection) Status: Acute Discharge Plan - Patient Discharge Instructions ACTIVITY: Ambulate as tolerated DIET: continue same diet - Follow up Plan Follow up with: Nazario Burk MD [Primary Care Provider] - Disposition: Home Health Service Condition at discharge:: Improving Home Medications: Home Medications Medication Instructions Recorded Confirmed Type ascorbic acid (vitamin C) 500 mg 1 gm PO DAILY tab 06/13/17 12/29/20 History tablet simvastatin 40 mg tablet 40 mg PO HS 06/13/17 12/28/20 History Donepezil HCl [Aricept 5mg 5 mg PO HS 01/11/18 12/28/20 History Tablet] Warfarin Sodium 3 mg PO 1600 01/11/18 12/28/20 History Tramadol HCl/Acetaminophen 1 tab PO QID #0 04/18/18 12/28/20 Rx [Ultracet Tablet] alendronate 10 mg tablet 10 mg PO DAILY tab 07/18/19 12/28/20 History Losartan Potassium [Cozaar 50mg 50
--- NOTE | 2020-12-30 09:13 | HMH.PHAINT ---
MEDICATION DISCHARGE COUNSELING COMPLETE. PATIENT WAS INFORMED OF MEDICATION CHANGES, STOPPING SIMVISTATIN AND THE ADDITION OF THREE NEW MEDICATIONS, DOCUSATE, PANTOPRAZOLE AND CEFDINIR. PATIENT QUESTIONED WHY SHE WAS BEING TAKEN OFF SIMVISTATIN AND SAID SHE WOULD FOLLOW UP WITH PCP.
== END 2020-12-30 10:15 | disposition home health service (06) | DRG 565 ==
LOC: ER 17:36 → 2ND 17:43
PROVIDERS: Admitting Provider Emergency Medicine; Emergency Provider Emergency Medicine; PCP Internal Medicine Adolescent Medicine; Visit Provider Internal Medicine Adolescent Medicine
DX: T79.6XXA Traumatic ischemia of muscle, initial encounter (principal); I42.9 Cardiomyopathy, unspecified; N30.01 Acute cystitis with hematuria; R29.6 Repeated falls; Z95.2 Presence of prosthetic heart valve; Z95.0 Presence of cardiac pacemaker; I25.10 Atherosclerotic heart disease of native coronary artery without angina pectoris; Z20.822 Contact with and (suspected) exposure to COVID-19; W18.11XA Fall from or off toilet without subsequent striking against object, initial encounter; E78.5 Hyperlipidemia, unspecified; I10 Essential (primary) hypertension; F03.90 Unspecified dementia, unspecified severity, without behavioral disturbance, psychotic disturbance, mood disturbance, and anxiety; S00.93XA Contusion of unspecified part of head, initial encounter; Z79.01 Long term (current) use of anticoagulants; K21.9 Gastro-esophageal reflux disease without esophagitis; B96.20 Unspecified Escherichia coli [E. coli] as the cause of diseases classified elsewhere
CPT/HCPCS: 36415; 70450; 71250; 72125; 74176; 80053; 81001; 82550; 83605; 83690; 83880; 84484; 85025; 85610; 85730; 87086; 87088; 87186; 96365; 97116; 97162; 97165; 97535; 99284; U0003

== ENCOUNTER 2021-01-05 12:25 | Outpatient (CLI) | payer MEDICARE, BC, SELFPAY ==
[2021-01-05 14:20] LABS: PHA INR Fingerstick 3.4 (0.9-1.1)
== END 2021-01-05 14:26 | disposition home or self-care (01) ==
LOC: ACC 12:26
PROVIDERS: PCP Internal Medicine Adolescent Medicine; Visit Provider Internal Medicine Adolescent Medicine
DX: Z51.81 Encounter for therapeutic drug level monitoring (principal); Z79.01 Long term (current) use of anticoagulants; Z95.2 Presence of prosthetic heart valve
CPT/HCPCS: 85610; 99211; G0463

== ENCOUNTER 2021-02-05 13:28 | Outpatient (CLI) | payer MEDICARE, BC, SELFPAY ==
[2021-02-05 16:49] LABS: PHA INR Fingerstick 3.9 (0.9-1.1)
== END 2021-02-05 16:58 | disposition home or self-care (01) ==
LOC: ACC 13:30
PROVIDERS: PCP Internal Medicine Adolescent Medicine; Visit Provider Internal Medicine Adolescent Medicine
DX: Z51.81 Encounter for therapeutic drug level monitoring (principal); Z79.01 Long term (current) use of anticoagulants; Z95.2 Presence of prosthetic heart valve
CPT/HCPCS: 85610; 99211; G0463

== ENCOUNTER 2021-02-25 13:04 | Outpatient (CLI) | payer MEDICARE, BC, SELFPAY ==
[2021-02-25 14:37] LABS: PHA INR Fingerstick 2.5 (0.9-1.1)
== END 2021-02-25 16:16 | disposition home or self-care (01) ==
LOC: ACC 13:05
PROVIDERS: PCP Internal Medicine Adolescent Medicine; Visit Provider Internal Medicine Adolescent Medicine
DX: Z51.81 Encounter for therapeutic drug level monitoring (principal); Z79.01 Long term (current) use of anticoagulants; Z95.2 Presence of prosthetic heart valve
CPT/HCPCS: 85610; 99211; G0463

== ENCOUNTER 2021-03-25 12:59 | Outpatient (CLI) | payer MEDICARE, BC, SELFPAY ==
[2021-03-25 15:11] LABS: INR 6.51 (0.9-1.1)
[2021-03-25 15:52] LABS: PHA INR Fingerstick 5.4 (0.9-1.1)
== END 2021-03-25 15:55 | disposition home or self-care (01) ==
PROVIDERS: PCP Internal Medicine Adolescent Medicine; Visit Provider Internal Medicine Adolescent Medicine
DX: Z51.81 Encounter for therapeutic drug level monitoring (principal); Z79.01 Long term (current) use of anticoagulants; Z95.2 Presence of prosthetic heart valve
CPT/HCPCS: 36415; 85610; 99211; G0463

== ENCOUNTER 2021-04-03 13:06 | Outpatient (CLI) | payer MEDICARE, BC, SELFPAY | END 2021-04-03 14:26 | disposition home or self-care (01) | LOC: ACC 13:07 | PROVIDERS: PCP Internal Medicine Adolescent Medicine; Visit Provider Internal Medicine Adolescent Medicine | DX: Z51.81 Encounter for therapeutic drug level monitoring (principal); Z79.01 Long term (current) use of anticoagulants; Z95.2 Presence of prosthetic heart valve | CPT/HCPCS: 85610; 99211; G0463 ==

== ENCOUNTER 2021-04-15 10:53 | Outpatient (CLI) | payer MEDICARE, BC, SELFPAY ==
[2021-04-15 14:54] LABS: PHA INR Fingerstick 1.9 (0.9-1.1)
== END 2021-04-15 14:56 | disposition home or self-care (01) ==
LOC: ACC 10:54
PROVIDERS: PCP Internal Medicine Adolescent Medicine; Visit Provider Internal Medicine Adolescent Medicine
DX: Z51.81 Encounter for therapeutic drug level monitoring (principal); Z79.01 Long term (current) use of anticoagulants; Z95.2 Presence of prosthetic heart valve
CPT/HCPCS: 85610; 99211; G0463

== ENCOUNTER 2021-05-05 10:55 | Outpatient (CLI) | payer MEDICARE, BC, SELFPAY ==
--- NOTE | 2021-05-05 11:30 | XR_ITS ---
PROCEDURE: XR FEMUR LT 2V XR HIP LT 2-3V W/PELVIS CLINICAL INDICATION: FALL COMPARISON: CR From 05/05/2021 FINDINGS: Left hip: Mild osteoarthritic changes. No fracture or dislocation. No lytic or blastic change. Left femur: Minimal osteoarthritic change at the knee with chondrocalcinosis medially and laterally. No fracture or dislocation. IMPRESSION: Osteoarthritis, no acute finding Dictated by: Taye Norman MD 05/05/2021 15:22 Taye Norman MD in [place] 05/05/2021 15:22
[2021-05-05 15:03] LABS: PHA INR Fingerstick 3.5 (0.9-1.1)
== END 2021-05-05 15:17 | disposition home or self-care (01) ==
PROVIDERS: PCP Internal Medicine Adolescent Medicine; Visit Provider Internal Medicine Adolescent Medicine
DX: Z51.81 Encounter for therapeutic drug level monitoring (principal); Z79.01 Long term (current) use of anticoagulants; Z95.2 Presence of prosthetic heart valve; M25.552 Pain in left hip; M79.652 Pain in left thigh; W19.XXXA Unspecified fall, initial encounter
CPT/HCPCS: 73502; 73552; 85610; 99211; G0463

== ENCOUNTER 2021-06-02 10:57 | Outpatient (CLI) | payer MEDICARE, BC, SELFPAY ==
[2021-06-02 11:32] LABS: PHA INR Fingerstick 2.6 (0.9-1.1)
== END 2021-06-02 11:34 | disposition home or self-care (01) ==
LOC: ACC 10:58
PROVIDERS: PCP Internal Medicine Adolescent Medicine; Visit Provider Internal Medicine Adolescent Medicine
DX: Z51.81 Encounter for therapeutic drug level monitoring (principal); Z79.01 Long term (current) use of anticoagulants; Z95.2 Presence of prosthetic heart valve
CPT/HCPCS: 85610; 99211; G0463

== ENCOUNTER 2021-06-13 11:45 | Emergency (ER) | payer MEDICARE, BC, SELFPAY ==
[2021-06-13 12:10] VITALS: BP 141/86; PULSE 70; RESP 18; TEMP 36.8; O2SAT 98; BMI 17.6
--- NOTE | 2021-06-13 12:37 | XR_ITS ---
PROCEDURE INFORMATION: Exam: XR Thoracic Spine Exam date and time: 06/13/2021 12:37 PM Age: 85 years old Clinical indication: Pain in thoracic spine TECHNIQUE: Imaging protocol: XR of the thoracic spine. Views: 3 views. COMPARISON: CT THORACIC SPINE WO CON 11/22/2019 11:14 PM FINDINGS: Bones/joints: Worsening compression injury of a upper thoracic vertebra, presumably T4, now with greater than 50% loss in vertebral body height. New severe compression injury at T6 with 50% loss in vertebral body height. No other compression injuries are noted. Redemonstration of pronounced thoracic kyphosis. No other acutely displaced fractures are identified. Multilevel decrease in intervertebral disc space. Multilevel anterior osteophytes are appreciated. Soft tissues: No significant soft tissue swelling. Other findings: No acute findings in the visualized chest. IMPRESSION: 1. Worsening compression injury, presumably at T4, now with greater than 50% loss in vertebral body height. 2. New severe compression injury at T6 with 50% loss in vertebral body height. 3. Moderate multilevel degenerative changes, as detailed above.
--- NOTE | 2021-06-13 12:39 | HMH.EDUTC ---
[facility] [place] Clinical Impression: Compression fracture Back pain Qualifiers: Back pain location: thoracic back pain Chronicity: acute Back pain laterality: midline Qualified Code(s): M54.6 - Pain in thoracic spine Disposition: Home, Self-Care Condition on Discharge: Good Instructions: DI for Thoracic Back Pain Additional Instructions: rest tylenol or motrin as needed for pain ice 20 mins and remove may repeat every hour follow up with pcp this week may need pain management referral if ok with hernan cut warfain dose in half 1.5 mg and call Jaun tuesday Prescriptions: predniSONE [Prednisone 20mg Tab] 20 mg PO BID 3 Days #6 tab Prescription Printed Referrals: Nazario Burk MD [Primary Care Provider] - Time of Disposition: 14:51 Medical Decision Making - Zenon Inquiry Pt receiving controlled substance: No Vital Signs: 06/13/21 12:10 06/13/21 12:44 Temperature 98.2 F 98.2 F Temperature Source Oral Pulse Rate 70 Pulse Rate [Right Brachial] 70 Respiratory Rate 18 18 Blood Pressure 141/86 H Blood Pressure [Right Arm] 141/86 H Blood Pressure Mean [Right Arm] 104 Blood Pressure Source [Right Arm] Automatic Cuff Blood Pressure Position [Right Arm] Sitting 02 Sat by Pulse Oximetry 98 Oxygen Delivery Method Room Air - Lab Data Lab Results 06/13/21 12:00: Urine Color Yellow, Urine Appearance Clear, Urine pH 5.5, Ur Specific [place] 1.030, Urine Protein 1+, Urine Glucose (UA) Negative, Urine Ketones Trace, Urine Blood 3+, Urine Nitrate Negative, Urine Bilirubin Negative, Urine Urobilinogen 0.2, Ur Leukocyte Esterase Negative Medical Decision Narrative: pt did not want to go to ed or be admitted states she just wants to go home [facility] [place] HPI - General Chief complaint: [facility] Stated complaint: back pain, no accident Time Seen by Provider: 06/13/21 12:39 Mode of Arrival: Ambulatory Source of Information: Patient Limitations: No Limitations Description of Symptoms (Recalled from Triage Doc. by RN): PATIENT C/O LOWER BACK PAIN X 4 DAYS HEENT Symptoms (Recalled from RN notes): No Resp Symptoms (Recalled from RN notes): No Skin Symptoms (Recalled from RN notes): No MS Symptoms (Recalled from RN notes): Yes Functional Status (Recalled from RN notes): WNL - History of Present Illness Provider Complaint: 85 yr old female presents for back pain. Pt states the pain in in the middle of her back. pt states she layed down ok and then when she woke up she had pain 4 days ago. pt has chronic pain. denies chest pain or pressure. - Related Data Home Medications Medication Instructions Recorded Confirmed ascorbic acid (vitamin C) 500 mg 1 gm PO DAILY tab 06/13/17 01/21/21 tablet simvastatin 40 mg tablet 40 mg PO HS 06/13/17 01/21/21 Donepezil HCl [Aricept 5mg 5 mg PO HS 01/11/18 01/21/21 Tablet] Warfarin Sodium 3 mg PO 1600 01/11/18 01/21/21 alendronate 10 mg tablet 10 mg PO DAILY tab 07/18/19 01/21/21 Losartan Potassium [Cozaar 50mg 50 mg PO DAILY 12/28/20 01/21/21 Tablets] Promethazine/Dextromethorphan 5 ml PO Q6 PRN 12/28/20 01/21/21 [Promethazine-Dm 6.25-15 mg/5Ml] guaiFENesin [Mucinex 600mg tablet] 600 mg PO BID 12/28/20 01/21/21 Escitalopram Oxalate 5 mg PO DAILY 12/29/20 01/21/21 Previous Rx's Medication Instructions Recorded Tramadol HCl/Acetaminophen 1 tab PO QID #0 04/18/18 [Ultracet Tablet] Cefdinir [Omnicef 300mg Capsule] 300 mg PO BID 7 Days #14 cap 12/30/20 Docusate Sodium [Docusate Sodium 100 mg PO DAILY cap 12/30/20 100mg Cap] Pantoprazole Sodium [Protonix 40mg 40 mg PO DAILY 30 Days #30 12/30/20 tablet] tablet. metoprolol tartrate 50 mg tablet 25 mg PO BID #60 tab 01/21/21 predniSONE [Prednisone 20mg 20 mg PO BID 3 Days #6 tab 06/13/21 Tab] Allergies Allergy/AdvReac Type Severity Reaction Status Date / Time Sulfa (Sulfonamide Allergy Severe Difficulty Verified 01/21/21 11:15 Antibiotics) Breath
[2021-06-13 12:44] VITALS: BP 141/86; PULSE 70; RESP 18; TEMP 36.8; O2SAT 98
[2021-06-13 12:53] LABS: Apearance,Urine Clear (Clear); Bilirubin,Urine Negative (Negative); Blood, Urine 3+ (Negative); Color,Urine Yellow (Yellow); Glucose,Urine (UA) Negative (Negative); Ketones,Urine TRACE (Negative); PH,Urine 5.5 (5.0-8.5); Protein,Urine 1+ (Negative); UTC Leukocyte Esterase,Urine Negative (Negative); UTC Nitrate,Urine Negative (Negative); Urobilinogen,Urine 0.2 EU/dl (0.2)
== END 2021-06-13 14:55 | disposition home or self-care (01) ==
PROVIDERS: Emergency Provider Nurse Practitioner Family; PCP Internal Medicine Adolescent Medicine
DX: M48.54XA Collapsed vertebra, not elsewhere classified, thoracic region, initial encounter for fracture (principal); K52.9 Noninfective gastroenteritis and colitis, unspecified; I25.10 Atherosclerotic heart disease of native coronary artery without angina pectoris; K21.9 Gastro-esophageal reflux disease without esophagitis; E78.5 Hyperlipidemia, unspecified; I10 Essential (primary) hypertension; Z88.2 Allergy status to sulfonamides; Z79.899 Other long term (current) drug therapy
CPT/HCPCS: G0463; 72072; 81003; 99202

== ENCOUNTER 2021-06-18 13:05 | Outpatient (CLI) | payer MEDICARE, BC, SELFPAY | END 2021-06-18 16:21 | disposition home or self-care (01) | PROVIDERS: PCP Internal Medicine Adolescent Medicine; Visit Provider Internal Medicine Adolescent Medicine | DX: Z51.81 Encounter for therapeutic drug level monitoring (principal); Z79.01 Long term (current) use of anticoagulants | CPT/HCPCS: 36415; 85610; 99211; G0463 ==

== ENCOUNTER 2021-06-22 13:28 | Outpatient (CLI) | payer MEDICARE, BC, SELFPAY | END 2021-06-22 14:36 | disposition home or self-care (01) | LOC: ACC 13:29 | PROVIDERS: PCP Internal Medicine Adolescent Medicine; Visit Provider Internal Medicine Adolescent Medicine | DX: Z51.81 Encounter for therapeutic drug level monitoring (principal); Z79.01 Long term (current) use of anticoagulants; Z95.2 Presence of prosthetic heart valve | CPT/HCPCS: 85610; 99211; G0463 ==

== ENCOUNTER 2021-06-30 13:31 | Outpatient (CLI) | payer MEDICARE, BC, SELFPAY ==
[2021-06-30 16:32] LABS: PHA INR Fingerstick 4.7 (0.9-1.1)
[2021-06-30 17:11] LABS: Prothrombin Time 59.7 seconds (10.1-12.5)
[2021-06-30 17:12] LABS: INR 6.04 (0.9-1.1)
== END 2021-06-30 16:47 | disposition home or self-care (01) ==
PROVIDERS: PCP Internal Medicine Adolescent Medicine; Visit Provider Internal Medicine Adolescent Medicine
DX: Z51.81 Encounter for therapeutic drug level monitoring (principal); Z79.01 Long term (current) use of anticoagulants; Z95.2 Presence of prosthetic heart valve
CPT/HCPCS: 36415; 85610; 99211; G0463

== ENCOUNTER 2021-07-14 13:20 | Outpatient (CLI) | payer MEDICARE, BC, SELFPAY ==
[2021-07-14 14:14] LABS: PHA INR Fingerstick 1.6 (0.9-1.1)
== END 2021-07-14 14:34 | disposition home or self-care (01) ==
LOC: ACC 13:20
PROVIDERS: PCP Internal Medicine Adolescent Medicine; Visit Provider Internal Medicine Adolescent Medicine
DX: Z51.81 Encounter for therapeutic drug level monitoring (principal); Z79.01 Long term (current) use of anticoagulants; Z95.2 Presence of prosthetic heart valve
CPT/HCPCS: 85610; 99211; G0463

== ENCOUNTER 2021-08-04 12:55 | Outpatient (CLI) | payer MEDICARE, BC, SELFPAY ==
--- NOTE | 2021-08-04 12:57 | CA_ITS ---
APPROVED REPORT EXAM: Comprehensive 2D, Doppler, and color-flow Echocardiogram Policy Change Clerk: Yasmine Chaidez CRT Ht: 5 ft 6 in Wt: 106lbs BSA: 1.53 BP: 129/65 mmHg Indications: Shortness of Breath, CVA/TIA, Palpitations, Dyspnea, Hypertension/HDD 2D Dimensions LVOT 1.82 cm (M/F) 1.5-2.5 LA Volume 46.10 mL LA Volume Index 30.10 mL/m2 (M/F) 16-34 M-Mode Dimensions RVDd 2.75 cm (0.9-2.6) LA Diam 4.40 cm (1.9-4.0) LVDd 4.51 cm (3.5-5.7) Ao Diam 4.01 cm (2.0-3.7) LVDs 3.38 cm (3.5-5.7) IVSd 1.50 cm (0.6-1.1) PWd 0.56 cm (0.6-1.1) EF (Teich) 49.60% FS 25.10% EDV (Teich) 92.90 mL TAPSE 1.35 (<1.7) ESV (Teich) 46.80 mL LV Diastology E Decel Time 237.00 (160-240 msec) E/A Ratio 2.16 MED E' 6.70 (< 7 cm/sec) MED A' 3.40 cm/s E'/MED E' Ratio 12.60 (>14) LAT E' 11.10 (<10 cm/sec) LAT A' 3.20 cm/s E/LAT E' Ratio 7.60 (>14) Aortic Valve LVOT Max 114.00 (70-110 cm/s) LVOT VTI 24.65 cm AoV Peak Emmanuel. 115.00 (50-130 cm/s) AO Peak GR. 5.30 mmHg AO Mean GR. 3.20 (<5 mmHg) AO VTI 22.51 (18-25 cm) BASILIO (VTI) 2.85 (2.5-4.5 cm2) Mitral Valve MV E Max Emmanuel. 84.00 (40-130 cm/s) MV A Velocity 39.00 (40-130 cm/s) E/A Ratio 2.16 MV Decel. Time 237.00 (160-240 ms) MV PHT 69.00 ms Pulmonary Valve PV Peak Velocity 156.00 (50-150 cm/s) Tricuspid Valve TR P. Velocity 320.00 cm/s RAP Estimate 10.00 mmHg RVSP 50.90 mmHg Left Ventricle Left atrium is mildly enlarged, left ventricle is normal size, mild concentric left ventricular hypertrophy, estimated ejection fraction 50% with no regional wall motion abnormality, diastolic parameters are inconclusive. Right Ventricle Right atrium and right ventricle mildly enlarged with normal contractility. Aortic Valve Aortic valve is thickened and calcified leaflets not well visualized, Doppler is not indicative of aortic stenosis or aortic insufficiency. Mitral Valve Mitral valve mitral annular calcification, leaflets are minimally thickened, there is mild to moderate mitral regurgitation. Tricuspid Valve Tricuspid grossly normal, there is mild tricuspid regurgitation, calculated right ventricular systolic pressure is 46 mmHg. Pulmonic Valve Pulmonic valve is poorly visualized. Great Vessels Aortic root is normal size. Inferior vena cava is poorly visualized. Pericardium No significant pericardial effusion noted. Conclusion 1. Mildly enlarged left atrium, normal left ventricular size, mild concentric left ventricular hypertrophy, visually estimated ejection fraction 50% with no regional wall motion abnormality, diastolic parameters are inconclusive. 2. Thickened and calcified aortic valve leaflets are not well visualized, Doppler is not indicative of aortic stenosis or aortic insufficiency. 3. Mild to moderate mitral and mild tricuspid regurgitation. Calculated right ventricular systolic pressure is 46 mmHg. 4. No significant pericardial effusion. 5. Inferior vena cava is poorly visualized. Electronically signed by : Ricky Petersen MD 08/04/2021 19:51:07
[2021-08-04 15:01] LABS: PHA INR Fingerstick 2.3 (0.9-1.1)
== END 2021-08-04 15:02 | disposition home or self-care (01) ==
LOC: RT 12:57
PROVIDERS: PCP Internal Medicine Adolescent Medicine; Visit Provider Internal Medicine
DX: E78.00 Pure hypercholesterolemia, unspecified (principal); I10 Essential (primary) hypertension; I27.20 Pulmonary hypertension, unspecified; Z79.01 Long term (current) use of anticoagulants; Z86.73 Personal history of transient ischemic attack (TIA), and cerebral infarction without residual deficits; Z95.0 Presence of cardiac pacemaker; Z95.2 Presence of prosthetic heart valve
CPT/HCPCS: 85610; 93306; 99211; G0463

== ENCOUNTER 2021-08-31 12:58 | Outpatient (CLI) | payer MEDICARE, BC, SELFPAY ==
[2021-08-31 14:55] LABS: PHA INR Fingerstick 2.7 (0.9-1.1)
== END 2021-08-31 14:58 | disposition home or self-care (01) ==
LOC: ACC 12:59
PROVIDERS: PCP Internal Medicine Adolescent Medicine; Visit Provider Internal Medicine Adolescent Medicine
DX: Z51.81 Encounter for therapeutic drug level monitoring (principal); Z79.01 Long term (current) use of anticoagulants; Z95.2 Presence of prosthetic heart valve
CPT/HCPCS: 85610; 99211; G0463

== ENCOUNTER 2021-10-12 12:58 | Outpatient (CLI) | payer MEDICARE, BC, SELFPAY ==
[2021-10-12 14:00] LABS: PHA INR Fingerstick 2.7 (0.9-1.1)
== END 2021-10-12 14:25 | disposition home or self-care (01) ==
LOC: ACC 13:00
PROVIDERS: Visit Provider Internal Medicine Adolescent Medicine
DX: Z51.81 Encounter for therapeutic drug level monitoring (principal); Z79.01 Long term (current) use of anticoagulants; Z95.2 Presence of prosthetic heart valve
CPT/HCPCS: 85610; 99211; G0463

== ENCOUNTER 2021-11-15 20:18 | Emergency (ER) | payer MEDICARE, BC, SELFPAY ==
[2021-11-15 20:35] VITALS: BP 157/76; PULSE 71; RESP 18; TEMP 36.8; O2SAT 96; BMI 18.8
--- NOTE | 2021-11-15 20:45 | XR_ITS ---
PROCEDURE INFORMATION: Exam: XR Lumbosacral Spine Exam date and time: 11/15/2021 9:03 PM Age: 85 years old Clinical indication: Injury or trauma; Fall; Sprain or strain, lumbar ligaments TECHNIQUE: Imaging protocol: Radiologic exam of the lumbosacral spine. Views: 2 or 3 views. COMPARISON: CT LUMBAR SPINE WO CON 11/22/2019 11:19 PM FINDINGS: Bones/joints: Changes of prior sternotomy with cardiac valve repair. Multilevel lumbar spine spondylosis, manifest by disc space narrowing, endplate sclerosis, osteophyte formation, and facet arthropathy. Dextroscoliosis of the lumbar spine. No acute fracture. Prior compression fracture deformity of the L3 vertebral body, with approximately 40% loss of vertebral body height, similar to comparison study. Soft tissues: Unremarkable. Intraperitoneal space: Cholecystectomy clips in the right upper abdomen. Vasculature: Atherosclerotic vascular disease. IMPRESSION: No acute fracture.
--- NOTE | 2021-11-15 20:45 | XR_ITS ---
PROCEDURE INFORMATION: Exam: XR Pelvis Exam date and time: 11/15/2021 9:02 PM Age: 85 years old Clinical indication: Injury or trauma; Fall; Sprain or strain; Bilateral; Pelvic region TECHNIQUE: Imaging protocol: Radiologic exam of the pelvis. Views: 1 or 2 view. COMPARISON: CR XR HIP LT 2-3V W/PELVIS 05/05/2021 11:34 AM FINDINGS: Bones/joints: Degenerative changes of the visualized lower lumbar spine. Mild degenerative changes of the hips, manifest by mild joint space narrowing and osteophyte formation. No acute fracture or dislocation. Soft tissues: Unremarkable. Organs: Cholecystectomy clips in the right upper abdomen. IMPRESSION: No acute fracture or dislocation.
--- NOTE | 2021-11-15 20:45 | XR_ITS ---
PROCEDURE INFORMATION: Exam: XR Chest Exam date and time: 11/15/2021 8:59 PM Age: 85 years old Clinical indication: Injury or trauma; Fall; Blunt trauma (contusions or hematomas) TECHNIQUE: Imaging protocol: Radiologic exam of the chest. Views: 2 views. COMPARISON: CT CHEST WO CON 12/28/2020 4:00 PM FINDINGS: Tubes, catheters and devices: Left subclavian transvenous pacemaker leads within the right cardiac chambers. Lungs: Normal. Pleural spaces: Unremarkable. No pleural effusion. No pneumothorax. Heart/Mediastinum: Normal. Vasculature: Changes of prior sternotomy and aortic valve repair. Atherosclerotic vascular disease. Bones/joints: Chronic compression fracture of the T1 vertebral body. Moderate focal kyphosis of the upper thoracic spine, similar to comparison study. IMPRESSION: No acute cardiopulmonary abnormality.
[2021-11-15 20:55] LABS: Basophils # 0.1 K/mm3 (0-0.2); Eosinophils # 0.2 K/mm3 (0.0-0.4); Eosinophils % 4.2 % (0.1-12.0); Hematocrit 41.7 % (37.0-47.0); Hemoglobin 13.3 g/dL (12.2-16.2); Lymphocytes # 1.3 K/mm3 (0.7-4.5); Mean Corpuscular HGB Conc 31.8 g/dL (31.8-35.4); Mean Corpuscular Volume 110.2 fl (81-99); Mean Platelet Volume 10.1 fl (7.4-10.4); Monocytes # 0.4 K/mm3 (0.1-1.0); Monocytes % 7.8 % (1.7-9.3); Neutrophils # 2.8 K/mm3 (1.8-7.8); Neutrophils % 59.9 % (37.0-80.0); Platelet Count 95 K/mm3 (142-424); Red Blood Count 3.78 M/mm3 (4.20-5.40); Red Cell Distribution Width 13.8 % (11.5-17.5); White Blood Count 4.7 K/mm3 (4.8-10.8)
[2021-11-15 21:04] LABS: Alanine Aminotransferase 19 U/L (12-78); Albumin Level 4.4 g/dl (3.5-5.0); Albumin/Globulin Ratio 1.4 (1.1-1.8); Alkaline Phosphatase 63 U/L (38-126); Anion Gap 13.6 mEq/L (5-15); Aspartate Amino Transferase 46 U/L (14-36); Bilirubin,Total 0.8 mg/dl (0.2-1.3); Blood Urea Nitrogen 23 mg/dl (7-17); Calcium 9.9 mg/dl (8.4-10.2); Carbon Dioxide 30 mmol/L (22.0-30.0); Chloride 102 mmol/L (98-107); Creatinine Clearance Estimated 32 mL/min (50-200); Estimated Glomerular Filt Rate 69 ml/min (>60); GFR (African American) 83 ML/MIN (>60); Globulin 3.2 g/dL (1.3-3.2); Glucose 102 mg/dl (74-100); Potassium 4.6 mmoL/L (3.5-5.1); Sodium 141 mmol/L (136-145); Total Protein,Serum 7.6 g/dl (6.3-8.2)
[2021-11-15 21:07] LABS: INR 1.65 (0.9-1.1)
--- NOTE | 2021-11-15 21:20 | HMH.EDFALL ---
ED Disposition Clinical Impression: Left against medical advice, Thrombocytopenia Fall Qualifiers: Encounter type: initial encounter Qualified Code(s): W19.XXXA - Unspecified fall, initial encounter Lumbar contusion Qualifiers: Encounter type: initial encounter Qualified Code(s): S30.0XXA - Contusion of lower back and pelvis, initial encounter Disposition: Left Against Medical Advice Condition on Discharge: Good Additional Instructions: call pcp in am for follow up Referrals: Nazario Burk MD [Primary Care Provider] - - Critical Care Critical Care Time: No Attestation: On 11/15/21, the high probability of a clinically significant, sudden or life threatening deterioration of the following system(s) required my full and direct attention, intervention and personal management. The time I documented below is in addition to time spent performing reported procedures but includes the following listed in this critical care notation. Medical Decision Making - Medical Records Medical records reviewed: Yes: I reviewed the patient's medical records. - Zenon Inquiry Pt receiving controlled substance: No Vital Signs: 11/15/21 20:35 11/15/21 22:22 Temperature 98.2 F 98.2 F Temperature Source Oral Oral Pulse Rate 70 Pulse Rate [Apical] 71 Respiratory Rate 18 18 Blood Pressure 147/72 H Blood Pressure [Right Arm] 157/76 H Blood Pressure Mean [Right Arm] 103 Blood Pressure Source [Right Arm] Automatic Cuff Blood Pressure Position [Right Arm] Sitting 02 Sat by Pulse Oximetry 96 Oxygen Delivery Method Room Air - Lab Data Lab results reviewed: Yes: I reviewed the patient's lab results. Lab Results 11/15/21 20:40: WBC 4.7 L, RBC 3.78 L, Hgb 13.3, Hct 41.7, MCV 110.2 H, MCH 35.0 H, MCHC 31.8, RDW 13.8, Plt Count 95 L, MPV 10.1, Neut % (Auto) 59.9, Lymph % (Auto) 27.0, [place] % (Auto) 7.8, Eos % (Auto) 4.2, Baso % (Auto) 1.0, Neut # (Auto) 2.8, Lymph # (Auto) 1.3, [place] # (Auto) 0.4, Eos # (Auto) 0.2, Baso # (Auto) 0.1 11/15/21 20:40: PT 18.0 H, INR 1.65 H 11/15/21 20:40: Sodium 141, Potassium 4.6, Chloride 102, Carbon Dioxide 30, Anion Gap 13.6, BUN 23 H, Creatinine 0.80, Estimated Creat Clear 32, Estimated GFR 69, Est GFR ( Amer) 83, Glucose 102 H, Calcium 9.9, Total Bilirubin 0.8, AST 46 H, ALT 19, Alkaline Phosphatase 63, Total Protein 7.6 D, Albumin 4.4, Globulin 3.2, Albumin/Globulin Ratio 1.4 Result diagrams: 11/15/21 20:40 11/15/21 20:40 - Radiology Data #1 Image(s): Chest, L-Spine, Pelvis Image Reviewed: Yes I have reviewed radiologist's interpretation Preliminary Findings: Abnormal Medical Decision Narrative: no def acute fx but has osteoporosis and prev fx - Fall HPI - General Chief Complaint: Fall Stated Complaint: 11/15@1915 back pain, Time Seen by Provider: 11/15/21 20:45 Mode of Arrival: Ambulatory Source of Information: Patient, Relative, Medical Record Limitations: No Limitations Description of Symptoms (Recalled from ER Triage Doc. by RN): Pt states that she was standing in her kitchen looking at something on her kitchen table when she turned and slipped and fell. States that she does not know what caused her fall. States that she believes that she landed on her bottom. Denies losing consciousness. Denies hitting her head. Denies any injuries. States that her only complaint is lower back pain but is not currently having any pain. - History of Present Illness HPI Narrative: pt reported trip type fall and hit back and no loc or neck pain and no incont or chest pain - has pacemaker - on coumadin - complaint: fall Onset (ago): hour(s) Fall from: standing Fall witnessed: no Place fall occurred: home Loss of consciousness: none Prolonged down time: no Context: tripped/slipped Location of injury: back Severity: moderate Associated symptoms (after fall): denies - Related Data Home Medications Medication Instructions Recorded Confirmed ascorbic acid (vit
--- NOTE | 2021-11-15 22:19 | PC.NURSE ---
Patient requesting to leave, stated she had waited long enough. Family member requested INR results. Spoke with Dr. Guerin requested INR results be given to patient, and request patient to wait for radiology reading. Patient declined. AMA papers signed.
[2021-11-15 22:22] VITALS: BP 147/72; PULSE 70; RESP 18; TEMP 36.8; O2SAT 96
== END 2021-11-15 22:32 | disposition left against medical advice (07) ==
PROVIDERS: Emergency Provider Emergency Medicine; PCP Internal Medicine Adolescent Medicine
DX: D69.6 Thrombocytopenia, unspecified (principal); Z53.29 Procedure and treatment not carried out because of patient's decision for other reasons; S30.0XXA Contusion of lower back and pelvis, initial encounter; W19.XXXA Unspecified fall, initial encounter; M81.0 Age-related osteoporosis without current pathological fracture; Z88.2 Allergy status to sulfonamides; I42.9 Cardiomyopathy, unspecified; I25.10 Atherosclerotic heart disease of native coronary artery without angina pectoris; F03.90 Unspecified dementia, unspecified severity, without behavioral disturbance, psychotic disturbance, mood disturbance, and anxiety; I10 Essential (primary) hypertension; E78.5 Hyperlipidemia, unspecified; K21.9 Gastro-esophageal reflux disease without esophagitis; Z95.0 Presence of cardiac pacemaker
CPT/HCPCS: 71046; 72100; 72170; 80053; 85025; 85610; 99283

== ENCOUNTER 2021-11-24 12:52 | Outpatient (CLI) | payer MEDICARE, BC, SELFPAY ==
[2021-11-24 14:06] LABS: PHA INR Fingerstick 2.2 (0.9-1.1)
== END 2021-11-24 14:08 | disposition home or self-care (01) ==
LOC: ACC 12:54
PROVIDERS: PCP Internal Medicine Adolescent Medicine; Visit Provider Internal Medicine Adolescent Medicine
DX: Z51.81 Encounter for therapeutic drug level monitoring (principal); Z79.01 Long term (current) use of anticoagulants; Z95.2 Presence of prosthetic heart valve
CPT/HCPCS: 85610; 99211; G0463

== ENCOUNTER 2021-12-18 14:46 | Outpatient (CLI) | payer MEDICARE, BC, SELFPAY ==
[2021-12-18 16:09] LABS: INR 1.29 (0.9-1.1); Prothrombin Time 14.3 seconds (10.1-12.5)
[2021-12-18 16:38] LABS: PHA INR Fingerstick 1.4 (0.9-1.1)
== END 2021-12-18 16:40 | disposition home or self-care (01) ==
LOC: ACC 14:48
PROVIDERS: PCP Internal Medicine Adolescent Medicine; Visit Provider Internal Medicine Adolescent Medicine
DX: Z51.81 Encounter for therapeutic drug level monitoring (principal); Z79.01 Long term (current) use of anticoagulants; Z95.2 Presence of prosthetic heart valve
CPT/HCPCS: 36415; 85610; 99211; G0463

== ENCOUNTER 2021-12-30 13:05 | Outpatient (CLI) | payer MEDICARE, BC, SELFPAY ==
[2021-12-30 14:50] LABS: PHA INR Fingerstick 3.5 (0.9-1.1)
== END 2021-12-30 14:54 ==
LOC: ACC 13:06
PROVIDERS: PCP Internal Medicine Adolescent Medicine; Visit Provider Internal Medicine Adolescent Medicine
DX: Z51.81 Encounter for therapeutic drug level monitoring (principal); Z79.01 Long term (current) use of anticoagulants; Z95.2 Presence of prosthetic heart valve
CPT/HCPCS: 85610; 99211; G0463

== ENCOUNTER 2022-01-27 12:14 | Outpatient (CLI) | payer MEDICARE, BC, SELFPAY | END 2022-01-27 15:51 | LOC: ACC 12:16 | PROVIDERS: PCP Internal Medicine Adolescent Medicine; Visit Provider Internal Medicine Adolescent Medicine | DX: Z51.81 Encounter for therapeutic drug level monitoring (principal); Z79.01 Long term (current) use of anticoagulants; Z95.2 Presence of prosthetic heart valve | CPT/HCPCS: 85610; 99211; G0463 ==

== ENCOUNTER 2022-02-22 10:47 | Outpatient (CLI) | payer MEDICARE, BC, SELFPAY ==
[2022-02-22 13:32] LABS: PHA INR Fingerstick 1.9 (0.9-1.1)
== END 2022-02-22 13:34 ==
LOC: ACC 10:48
PROVIDERS: PCP Internal Medicine Adolescent Medicine; Visit Provider Internal Medicine Adolescent Medicine
DX: Z51.81 Encounter for therapeutic drug level monitoring (principal); Z79.01 Long term (current) use of anticoagulants
CPT/HCPCS: 85610; 99211; G0463

== ENCOUNTER 2022-03-15 13:47 | Outpatient (CLI) | payer MEDICARE, BC, SELFPAY ==
[2022-03-15 14:38] LABS: PHA INR Fingerstick 1.8 (0.9-1.1)
== END 2022-03-15 14:40 ==
PROVIDERS: PCP Internal Medicine Adolescent Medicine; Visit Provider Internal Medicine Adolescent Medicine
DX: Z51.81 Encounter for therapeutic drug level monitoring (principal); Z79.01 Long term (current) use of anticoagulants; Z95.2 Presence of prosthetic heart valve
CPT/HCPCS: 85610; 99211; G0463

== ENCOUNTER → 2022-04-12 13:02 | Outpatient (CLI) | payer MEDICARE, BC, SELFPAY | PROVIDERS: PCP Internal Medicine Adolescent Medicine; Visit Provider Internal Medicine Adolescent Medicine | DX: Z51.81 Encounter for therapeutic drug level monitoring (principal); Z79.01 Long term (current) use of anticoagulants; Z95.2 Presence of prosthetic heart valve | CPT/HCPCS: 36415; 85610 ==

== ENCOUNTER 2022-04-15 09:27 | Outpatient (CLI) | payer MEDICARE, BC, SELFPAY ==
[2022-04-15 15:34] LABS: PHA INR Fingerstick 3.9 (0.9-1.1)
== END 2022-04-15 15:46 ==
LOC: ACC 09:28
PROVIDERS: PCP Internal Medicine Adolescent Medicine; Visit Provider Internal Medicine Adolescent Medicine
DX: Z51.81 Encounter for therapeutic drug level monitoring (principal); Z79.01 Long term (current) use of anticoagulants; Z95.2 Presence of prosthetic heart valve
CPT/HCPCS: 85610; 99211; G0463

== ENCOUNTER 2022-04-22 12:50 | Inpatient (IN) | payer MEDICARE, BC, SELFPAY ==
[2022-04-22] VITALS (12 sets, daily range): BP systolic 115–161; BP diastolic 54–117; PULSE 60–79; RESP 14–20; TEMP 36.8–36.9; O2SAT 92–100; BMI 17.6; BMI 18.9
--- NOTE | 2022-04-22 13:38 | XR_ITS ---
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 ; Additional info: Fall TECHNIQUE: Imaging protocol: Radiologic exam of the bilateral hips. Views: 2 views of hips with pelvis when performed. COMPARISON: CR XR PELVIS 1-2V 11/15/2021 9:02 PM FINDINGS: Bones/joints: There are mild degenerative changes of both hip joints with some joint space narrowing and subchondral sclerosis. There is no fracture, malalignment or underlying osseous lesion detected. Remainder of the visualized osseous structures are unremarkable. Soft tissues: Unremarkable. IMPRESSION: Mild degenerative changes both hip joints. No acute abnormalities.
--- NOTE | 2022-04-22 13:38 | CT_ITS ---
PROCEDURE INFORMATION: Exam: CT Cervical Spine Without Contrast Exam date and time: 04/22/2022 3:47 PM Age: 86 years old Clinical indication: Injury or trauma; Fall TECHNIQUE: Imaging protocol: Computed tomography of the cervical spine without contrast. Radiation optimization: All CT scans at this facility use at least one of these dose optimization techniques: automated exposure control; mA and/or kV adjustment per patient size (includes targeted exams where dose is matched to clinical indication); or iterative reconstruction. COMPARISON: CT CERVICAL SPINE WO CON 12/28/2020 3:56 PM FINDINGS: Bones/joints: There is accentuated cervical lordosis, unchanged. There is a small cleft through the spinous process of C5 that is less pronounced on the current study and may represent changes from an old healed fracture. There is no acute fracture detected. There is no malalignment. There are moderate degenerative changes in the lower cervical spine and multilevel facet arthrosis more pronounced left of midline that is stable. There is a severe chronic compression fracture of T4 that is stable. Lungs: Lung apices are normal. Soft tissues: Unremarkable. IMPRESSION: 1. No acute bony abnormalities. 2. Stable severe compression fracture T4 3. Resolving changes involving spinous process of C5 likely representing sequelae of old injury.
--- NOTE | 2022-04-22 13:38 | CT_ITS ---
FINAL REPORT CLINICAL HISTORY: fall today COMPARISON: December 28, 2020 FINDINGS: Axial images of the head were obtained without contrast. Coronal reformatted images were also obtained. This study was performed with techniques to keep radiation doses as low as reasonably achievable (ALARA). Individualized dose reduction techniques using automated exposure control or adjustment of mA and/or kV according to the patient''s size were employed. There is motion on some of the images which decreases sensitivity of the exam. There is generalized age-appropriate atrophy. Periventricular low-attenuation areas are seen consistent with moderate chronic ischemic changes. There is no evidence of intracranial hemorrhage or mass. There is no evidence of acute infarct. There is no evidence of shift of the midline structures. No skull abnormality is seen on the bone window images. IMPRESSION: Atrophy and moderate periventricular chronic ischemic changes. No acute intracranial abnormality identified. Reviewed, Interpreted and Dictated by Oc Rocha III, MD Transcribed by Little Wilde Authenticated and . [facility]
--- NOTE | 2022-04-22 13:38 | XR_ITS ---
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 Views: 1 or 2 views. COMPARISON: CR XR WRIST LT MIN 3V 02/05/2020 4:34 PM FINDINGS: Bones/joints: Normal alignment. Joint surfaces preserved. No fracture. Soft tissues: No soft tissue swelling or joint effusion evident. IMPRESSION: Negative two-view examination of the left elbow.
--- NOTE | 2022-04-22 13:41 | CT_ITS ---
PROCEDURE INFORMATION: Exam: CT Abdomen And Pelvis With Contrast Exam date and time: 04/22/2022 4:03 PM Age: 86 years old Clinical indication: Injury or trauma; Fall TECHNIQUE: Imaging protocol: Computed tomography of the abdomen and pelvis with contrast. Radiation optimization: All CT scans at this facility use at least one of these dose optimization techniques: automated exposure control; mA and/or kV adjustment per patient size (includes targeted exams where dose is matched to clinical indication); or iterative reconstruction. Contrast material: ISOVUE; Contrast volume: 75 ml; Contrast route: IV; COMPARISON: CT ABDOMEN PELVIS WO CON 12/28/2020 4:00 PM FINDINGS: Lungs: Lung bases are clear. Liver: Normal. No mass. Gallbladder and bile ducts: Gallbladder has been removed. Bile ducts are not appreciably dilated. Pancreas: Unremarkable. Main pancreatic duct is not significantly dilated. Spleen: Normal. No splenomegaly. Adrenal glands: Normal. No mass. Kidneys and ureters: Normal. No hydronephrosis. Stomach and bowel: Multiple diverticuli sigmoid colon without evidence of acute diverticulitis.. No obstruction. No mucosal thickening. Appendix: No evidence of appendicitis. Intraperitoneal space: Unremarkable. No free air. No significant fluid collection. Vasculature: Abdominal aorta and iliac vessels are diffusely calcified. There is no aortic aneurysm. Lymph nodes: Unremarkable. No enlarged lymph nodes. Urinary bladder: There is a Parikh catheter balloon within the urinary bladder which is collapsed and difficult to assess. However there is some perivesical fluid lateral and anterior to the urinary bladder which in view of the adjacent pelvic fractures raises concern for extraperitoneal bladder rupture. Reproductive: Uterus has been removed. Bones/joints: There is a comminuted fracture of the left pubic bone and left inferior pubic ramus that is acute. There is mild biconcave compression deformity of L3 that is unchanged, chronic. Soft tissues: Unremarkable. IMPRESSION: 1. Acute comminuted fracture left pubic bone and left inferior pubic ramus with small amount of perivesical fluid partially surrounding the urinary bladder which is compressed with Parikh catheter balloon present limiting assessment. Findings raise concern for possibility of extraperitoneal bladder rupture which could be better assessed on CT cystography. 2. Additional nonemergent findings as above.
--- NOTE | 2022-04-22 13:41 | CT_ITS ---
PROCEDURE INFORMATION: Exam: CT Chest With Contrast; Diagnostic Exam date and time: 04/22/2022 4:03 PM Age: 86 years old Clinical indication: Injury or trauma; Fall TECHNIQUE: Imaging protocol: Diagnostic computed tomography of the chest with contrast. Radiation optimization: All CT scans at this facility use at least one of these dose optimization techniques: automated exposure control; mA and/or kV adjustment per patient size (includes targeted exams where dose is matched to clinical indication); or iterative reconstruction. Contrast material: ISOVUE; Contrast volume: 75 ml; Contrast route: IV; COMPARISON: CT CERVICAL SPINE WO CON 04/22/2022 3:47 PM FINDINGS: Lungs: Mild bibasilar subsegmental atelectasis otherwise lung rivera are clear. Pleural spaces: Unremarkable. No pneumothorax. No pleural effusion. Heart: Cardiac silhouette is moderately enlarged. Evidence of previous aortic valve repair. Pacemaker wires extending into the right atrium and right ventricle. No significant coronary artery calcifications or pericardial effusion. Lymph nodes: Unremarkable. No enlarged lymph nodes. Vasculature: Mild aneurysmal dilatation of the ascending aorta measuring 4.5 cm in maximum diameter. Descending thoracic aorta is unremarkable. Bones/joints: Accentuated kyphotic curvature. Severe compression fractures T4 and T6 vertebral bodies both of which were reported on prior study in June 2021 and presumed chronic. Evidence of prior median sternotomy. Soft tissues: Unremarkable. IMPRESSION: 1. No evidence of acute intrathoracic injury. 2. Chronic compression fractures T4 and T6 vertebral bodies. 3. Mild aneurysmal dilatation of the ascending aorta measuring 4.5 cm in maximum diameter.
--- NOTE | 2022-04-22 13:41 | CT_ITS ---
FINAL REPORT CLINICAL HISTORY: fall COMPARISON: Radiographs dated June 13, 2021 FINDINGS: Axial CT images of the thoracic spine were obtained without contrast. There is motion on many of the images which decreases sensitivity of the exam. Sagittal and coronal reformatted images were also obtained. This study was performed with techniques to keep radiation doses as low as reasonably achievable (ALARA). Individualized dose reduction techniques using automated exposure control or adjustment of mA and/or kV according to the patient's size were employed. There is no acute fracture identified. There are severe T4 and T6 compression fractures. The T4 fracture was present on the prior radiographs. The T6 fracture has progressed but is of uncertain age. There are moderate diffuse degenerative changes. There is severe kyphosis centered at T6. The vertebral alignment is normal. There is no evidence of significant canal stenosis. No paraspinous soft tissue abnormality is identified. IMPRESSION: Severe T4 and T6 compression fractures, the T6 fracture has progressed but is of uncertain age. No other fracture identified. Reviewed, Interpreted and Dictated by Oc Rocha III, MD Transcribed by Little Wilde Authenticated and [facility]
--- NOTE | 2022-04-22 13:41 | CT_ITS ---
FINAL REPORT CLINICAL HISTORY: fall COMPARISON: Radiographs dated November 15 2021 FINDINGS: Axial imaging of the lumbar spine was obtained without contrast. Sagittal and coronal reformatted images were also obtained and reviewed.This study was performed with techniques to keep radiation doses as low as reasonably achievable (ALARA). Individualized dose reduction techniques using automated exposure control or adjustment of mA and/or kV according to the patient's size were employed. There is a nondisplaced left sacral ala fracture of uncertain age, favor acute. A mild L3 compression fracture was present on the prior exam and is probably stable. The bones are osteopenic. The vertebral alignment is normal. There are mild and moderate degenerative changes. There is no evidence of significant central canal stenosis. IMPRESSION: Nondisplaced left sacral ala fracture of uncertain age, favor acute. Mild L3 compression fracture, present on the prior exam and is probably stable. Reviewed, Interpreted and Dictated by Oc Rocha III, MD Transcribed by Little Wilde Authenticated and [facility]
[2022-04-22 13:54] LABS: Lactic Acid 1.8 mmol/L (0.7-2.1)
[2022-04-22 13:58] LABS: Appearance,Urine SL CLOUDY (Clear); Bilirubin,Urine Negative (Negative); Blood, Urine TRACE-I (Negative); Color,Urine YELLOW (Yellow); Glucose,Urine (UA) Negative (Negative); Ketones,Urine Negative (Negative); Leukocyte Esterase,Urine TRACE (Negative); Microscopic, Urine URINE MICROSCOPIC (MICROSCOPIC); Nitrate,Urine POSITIVE (Negative); PH,Urine 6.5 (5.0-8.5); Protein,Urine Negative (Negative)
[2022-04-22 14:00] LABS: Creatine Kinase 49 U/L (30-135)
[2022-04-22 14:01] LABS: INR 3.66 (0.9-1.1); Prothrombin Time 36.7 seconds (10.1-12.5)
[2022-04-22 14:15] LABS: Basophils % 0.2 % (0.1-2.0); Eosinophils % 0.2 % (0.1-12.0); Hematocrit 35.7 % (37.0-47.0); Lymphocytes # 0.5 K/mm3 (0.7-4.5); Lymphocytes % 4.7 % (10-50); Mean Corpuscular HGB Conc 33.5 g/dL (31.8-35.4); Mean Corpuscular Hemoglobin 35.6 pg (27.0-31.2); Mean Corpuscular Volume 106.3 fl (81-99); Mean Platelet Volume 9.8 fl (7.4-10.4); Monocytes # 0.4 K/mm3 (0.1-1.0); Monocytes % 3.3 % (1.7-9.3); Neutrophils % 91.6 % (37.0-80.0); Platelet Count 121 K/mm3 (142-424); Red Blood Count 3.36 M/mm3 (4.20-5.40); Red Cell Distribution Width 13.8 % (11.5-17.5); White Blood Count 10.9 K/mm3 (4.8-10.8)
[2022-04-22 14:16] LABS: MANUAL DIFFERENTIAL MANUAL DIFFERENTIAL (MANUAL DIFF)
[2022-04-22 14:35] LABS: Bacteria,Urine 4+ /lpf
[2022-04-22 14:36] LABS: RBC,Urine Occasional #/hpf (0-3)
[2022-04-22 14:41] LABS: Lymphocytes % 3 % (10-50); Monocytes % 2 % (2-9); Neutrophils % 95 % (42-76); Ovalocytes 1+; Platelet Estimate Slight Decrease; Schistocytes 1+; Total Cells Counted 100
[2022-04-22 14:46] LABS: Coronavirus 19, PCR Not Detected (NotDetected); Influenza A, PCR Not Detected (NotDetected); Influenza B, PCR Not Detected (NotDetected)
--- NOTE | 2022-04-22 14:52 | HMH.EDGENADL ---
Discharge Plan Disposition Patient Disposition: Admitted As Inpatient Condition: Fair Prescriptions Prescriptions: No Action memantine 5 mg tablet 5 mg PO BID simvastatin 40 mg tablet 40 mg PO HS Hold Instructions: until follow-up in setting of Rhabdomyolisis ascorbic acid (vitamin C) 500 mg tablet 1 g PO DAILY alendronate 10 mg tablet 10 mg PO DAILY metoprolol tartrate 50 mg tablet 25 mg PO BID Qty: 60 2RF tramadol-acetaminophen 37.5-325 mg tablet 1 tab PO QID Qty: 0 0RF warfarin 3 MG tablet 3 mg PO 1600 Rx Instructions: PATIENT TAKES AT 1600 EVERY DAY. donepezil 5 MG tablet 5 mg PO HS promethazine-DM 118 ML syrup 5 ml PO Q6 PRN (Reason: Cough) Rx Instructions: take 5ml q6h prn for cough for 5 days guaifenesin 600 MG tablet extended release 12hr 600 mg PO BID escitalopram oxalate 5 MG tablet 5 mg PO DAILY docusate sodium 100 MG capsule 100 mg PO DAILY 0RF pantoprazole 40 MG tablet,delayed release (DR/EC) 40 mg PO DAILY 30 Days Qty: 30 0RF cefdinir 300 MG capsule 300 mg PO BID 7 Days Qty: 14 0RF Referrals Follow up/Referrals: Nazario Burk MD [Primary Care Provider] - See instructions Clinical Impressions Clinical Impression: Closed pelvic fracture Discharge ED Provider: Abdulaziz Tam General Adult HPI General Chief complaint: Fall Stated complaint: fall Time Seen by Provider: 04/22/22 13:46 Mode of Arrival: EMS Source of Information: Patient Limitations: No Limitations Description of Symptoms (Recalled from ER Triage Doc. by RN): pt to ed via ems c/o fall. daughter at the bedside states she checked on her mother yesterday evening and said she was at baseline. daughter states she checked on her this morning and found her in the floor. pt is a poor historian and is unable to localize pain. pt reports pain everywhere and has generalized tenderness on palpation. History of Present Illness HPI narrative: Patient brought in by ambulance. History obtained from patient's daughter. Patient is a poor historian. Daughter states that she saw the patient yesterday evening and she was at her usual baseline state of health. States she has not recently been ill. This morning at 11 AM she went to check on her and found her on the floor. It did not look like her bed had been slept in. She got the patient up into a chair but when she tried to get the patient up using her walker she did not have the strength to stand up and walk. Therefore EMS was called to have her brought in. Patient has no specific complaints, complains of pain everywhere. Daughter states she seemed to complain more of pain in her pelvis and in her right shoulder prior to transport. The patient does not remember any fall. Related Data Home Medications Medication Instructions Recorded Confirmed ascorbic acid (vitamin C) 500 mg 1 g PO DAILY Supplement 06/13/17 01/27/22 tablet simvastatin 40 mg tablet 40 mg PO HS Cholesterol 06/13/17 01/27/22 donepezil 5 mg tablet 5 mg PO HS ALZHEIMERS 01/11/18 01/27/22 warfarin 3 mg tablet 3 mg PO 1600 Blood thinner 01/11/18 01/27/22 alendronate 10 mg tablet 10 mg PO DAILY Osteoporosis 07/18/19 01/27/22 guaifenesin 600 mg tablet, 600 mg PO BID Cough/cold 12/28/20 01/27/22 extended release 12 hr promethazine-DM 6.25 mg-15 mg/5 mL 5 ml PO Q6 PRN Cough 12/28/20 01/27/22 oral syrup escitalopram oxalate 5 mg tablet 5 mg PO DAILY MOOD 12/29/20 01/27/22 memantine 5 mg tablet 5 mg PO BID 01/27/22 01/27/22 Previous Rx's Medication Instructions Recorded tramadol 37.5 mg-acetaminophen 325 1 tab PO QID Pain ##0 04/18/18 mg tablet cefdinir 300 mg capsule 300 mg PO BID 7 days #14 caps 12/30/20 docusate sodium 100 mg capsule 100 mg PO DAILY 12/30/20 pantoprazole 40 mg tablet,delayed 40 mg PO DAILY 30 days ##30 12/30/20 release metoprolol tartrate 50 mg tablet 25 mg PO BID #60 tabs 01/21/21 Allergies
[2022-04-22 15:22] LABS: Chloride 104 mmol/L (98-107); Potassium 4.3 mmoL/L (3.5-5.1); Sodium 140 mmol/L (136-145)
[2022-04-22 15:24] LABS: Alanine Aminotransferase 22 U/L (12-78); Alkaline Phosphatase 94 U/L (38-126); Anion Gap 12.3 mEq/L (5-15); Aspartate Amino Transferase 41 U/L (14-36); Blood Urea Nitrogen 15 mg/dl (7-17); Carbon Dioxide 28 mmol/L (22.0-30.0); Creatinine Clearance Estimated 27 mL/min (50-200); Estimated Glomerular Filt Rate 80 ml/min (>60); GFR (African American) 96 ML/MIN (>60)
[2022-04-22 15:25] LABS: Albumin Level 3.8 g/dl (3.5-5.0); Albumin/Globulin Ratio 1.5 (1.1-1.8); Calcium 9.4 mg/dl (8.4-10.2); Globulin 2.6 g/dL (1.3-3.2); Glucose 129 mg/dl (74-100); Total Protein,Serum 6.4 g/dl (6.3-8.2)
--- NOTE | 2022-04-22 15:30 | PC.NURSE ---
Patient going to CT by mame
[2022-04-22 15:31] LABS: CKMB Relative Index 1.2 U/L (0-4.0); Creatine Kinase MB 0.6 ng/ml (0.0-2.03)
[2022-04-22 15:50] LABS: Troponin I < 0.01 ng/ml (0.00-0.034)
--- NOTE | 2022-04-22 16:58 | PC.NURSE ---
updated daughter on POC, no new needs at this time.
--- NOTE | 2022-04-22 18:18 | PC.NURSE ---
RADIOLOGY CALLED ABOUT IMAGES
--- NOTE | 2022-04-22 19:03 | CT_ITS ---
PROCEDURE INFORMATION: Exam: CT Abdomen And Pelvis Without Contrast Exam date and time: 04/22/2022 7:51 PM Age: 86 years old Clinical indication: Pelvic pain; Additional info: Possible bladder rupture TECHNIQUE: Imaging protocol: Computed tomography of the abdomen and pelvis without contrast. Radiation optimization: All CT scans at this facility use at least one of these dose optimization techniques: automated exposure control; mA and/or kV adjustment per patient size (includes targeted exams where dose is matched to clinical indication); or iterative reconstruction. COMPARISON: CT ABDOMEN PELVIS W CON 04/22/2022 4:03 PM FINDINGS: Lungs: Mild scarring and atelectasis in the lower lungs. Heart: Prosthetic aortic valve. Cardiomegaly. Mitral valve calcifications. Coronary arteries: Coronary artery calcifications. Liver: Normal. No mass. Gallbladder and bile ducts: Gallbladder is absent. Pancreas: Moderate pancreatic atrophy. Spleen: Normal. No splenomegaly. Adrenal glands: Normal. No mass. Kidneys and ureters: Normal. No hydronephrosis. Stomach and bowel: Severe sigmoid diverticulosis without diverticulitis. Fluid-filled and borderline dilated segments of small bowel in the pelvis suggest ileus. Appendix: Unremarkable appendix. Intraperitoneal space: Unremarkable. No free air. No significant fluid collection. Vasculature: The arteries demonstrate severe atherosclerotic disease. Lymph nodes: Unremarkable. No enlarged lymph nodes. Urinary bladder: After administration of contrast into the urinary bladder, the urinary bladder is moderately distended. There is no evidence of contrast extravasation to represent urinary bladder injury. Reproductive: Unremarkable as visualized. Bones/joints: Displaced fractures of the left pubic superior ramus, inferior ramus, and pubic body. Left-sided sacral fracture could be acute. Soft tissues: Extraperitoneal hematoma around the pelvis to the pelvic fractures. IMPRESSION: 1. After administration of contrast into the urinary bladder, the urinary bladder is moderately distended. There is no evidence of contrast extravasation to represent urinary bladder injury. 2. Left-sided sacral fracture could be acute.
--- NOTE | 2022-04-22 21:25 | PC.NURSE ---
Patient admitted observation to [address] Burk with admitting dx of closed pelvic fx.
--- NOTE | 2022-04-22 22:39 | PC.NURSE ---
pt arrived to floor via stretcher @ [id number].
--- NOTE | 2022-04-23 00:29 | PC.NURSE ---
PATIENT ARRIVED TO THE FLOOR AT 2208 VIA STRETCHER. DIAGNOSIS FRACTURED PELVIS AND THORACIC FXT-4 AND T-6. ORIENTED TO SELF. DAUGHTER AT BEDSIDE. UNABLE TO VERIFY HOME MEDS. DAUGHTER TO BRING MEDS IN TOMORROW. PATIENT IS A POOR HISTORIAN. DAUGHTER SAYS SHE HAS MILD DEMENTIA PLUS RECEIVED MORHINE IN THE ED. PLACED IN ROOM 200.
[2022-04-23 00:51] VITALS: O2SAT 94
[2022-04-23 04:00] VITALS: BP 105/48; PULSE 63; RESP 18; TEMP 36.4; O2SAT 95; BMI 19.1
--- NOTE | 2022-04-23 04:06 | PC.NURSE ---
PATIENT IS CONFUSED AND UNCOOPERATIVE. ORIENTED TO SELF. IV SITE POSITIONAL RAC. REFUSES TO STRAIGHTEN ARM. KEEPING ARM BENT STOPS THE IV PUMP. OFFERED TO RESTART IV IN NEW SITE BUT PATIENT DOES NOT WANT ANOTHER IV.
[2022-04-23 08:00] VITALS: BP 112/58; PULSE 61; RESP 22; TEMP 36.7; O2SAT 97
--- NOTE | 2022-04-23 10:02 | HMH.PHAINT1 ---
Pharmacy Intervention Comments: MEDICATION RECONCILIATION COMPLETED ON PATIENT USING EXTERNAL FILL HISTORY FROM PHARMACY AND ACC NOTES. -JULIANNA PATTON, ISAIAHD
--- NOTE | 2022-04-23 10:51 | EXP.HP ---
History of Present Illness *Admission Date: 04/22/22 *Reason for visit:: Fall with inability to ambulate and pain *History of present illness: Description of Symptoms (Recalled from ER Triage Doc. by RN): pt to ed via ems c/o fall. daughter at the bedside states she checked on her mother yesterday evening and said she was at baseline. daughter states she checked on her this morning and found her in the floor. pt is a poor historian and is unable to localize pain. pt reports pain everywhere and has generalized tenderness on palpation. History of Present Illness HPI narrative: Patient brought in by ambulance.? History obtained from patient's daughter.? Patient is a poor historian. Daughter states that she saw the patient yesterday evening and she was at her usual baseline state of health.? States she has not recently been ill.? This morning at 11 AM she went to check on her and found her on the floor.? It did not look like her bed had been slept in.? She got the patient up into a chair but when she tried to get the patient up using her walker she did not have the strength to stand up and walk.? Therefore EMS was called to have her brought in.? Patient has no specific complaints, complains of pain everywhere.? Daughter states she seemed to complain more of pain in her pelvis and in her right shoulder prior to transport.? The patient does not remember any fall. Above As per ER physician documentation. Agree with above. ER work-up consisted of labs, CT scan of head, and multiple imaging of spine, pelvis. This revealed pelvic fractures as noted. CT cystogram was noted to rule out bladder rupture given some fluid appearance around the bladder on one of the CT scans, this was negative for evidence of bladder wall leakage, and patient was admitted to [facility] for pain control and probable placement. [facility] Disclaimer: The information contained in this section may have been updated after the patient was seen, as this information can be updated by other users. Medical History Cardiac pacemaker in situ Essential hypertension History of cerebrovascular accident HTN (hypertension) Hypercholesteremia Lumbar contusion Paroxysmal atrial fibrillation Pre-op evaluation Pulmonary hypertension Rhabdomyolysis Thrombocytopenia Surgical History History of aortic valve replacement Social History (Updated 04/22/22 @ 23:02 by Soraya Obrien RN) Smoking Status: Never smoker second hand exposure: No alcohol intake: never substance use type: denies use current occupational status: disabled Travel in the last 8 weeks: None household members: none housing: house current occupational exposures/hazards: No caffeine: Yes Review of Systems Review of Systems Review of systems:: unable to obtain Meds Home Medications and Allergies Home Medications Medication Instructions Recorded Confirmed Type donepezil 5 mg tablet 5 mg PO HS ALZHEIMERS 01/11/18 04/23/22 History warfarin 3 mg tablet 3 mg PO MOWEFR PROSTHETIC VALVE 01/11/18 04/23/22 History tramadol 37.5 mg-acetaminophen 325 1 tab PO QID Pain ##0 04/18/18 04/23/22 Rx mg tablet escitalopram oxalate 10 mg tablet 10 mg PO DAILY MOOD 04/23/22 04/23/22 History memantine 14 mg capsule 14 mg PO DAILY MEMORY 04/23/22 04/23/22 History sprinkle,extended release 24hr metoprolol succinate 25 mg 25 mg PO BID Hypertension 04/23/22 04/23/22 History tablet,extended release 24 hr simvastatin 40 mg tablet 40 mg PO HS Cholesterol 04/23/22 04/23/22 History warfarin 3 mg tablet 1.5 mg PO SUTUTHSA PROSTHETIC VALVE 04/23/22 04/23/22 History New Prescriptions to Start Prescriptions: Allergies Allergy/AdvReac Type Severity Reaction Status Date / Time Sulfa (Sulfonamide Allergy Severe Difficulty Verified 01/27/22 11:40 Antibiotics) Breathing [SULFA (SULFONAMIDE
[2022-04-23 11:34] VITALS: BMI 19.0
--- NOTE | 2022-04-23 13:41 | HMH.OTEV ---
OT Inpatient Evaluation Rehab OT IP Evaluation Start: 04/23/22 12:16 Freq: ONCE Status: Active Protocol: Document 04/23/22 13:29 KAYMALRO (Rec: 04/23/22 13:41 SANDHYAREYNALDO [id number]) Rehab OT IP Assessment Subjective History pt to ed via ems c/o fall. daughter at the bedside states she checked on her mother yesterday evening and said she was at baseline. daughter states she checked on her this morning and found her in the floor. pt is a poor historian and is unable to localize pain . pt reports pain everywhere and has generalized tenderness on palpation. History of Present Illness HPI narrative: Patient brought in by ambulance.? History obtained from patient's daughter.? Patient is a poor historian. Daughter states that she saw the patient yesterday evening and she was at her usual baseline state of health.? States she has not recently been ill.? This morning at 11 AM she went to check on her and found her on the floor.? It did not look like her bed had been slept in.? She got the patient up into a chair but when she tried to get the patient up using her walker she did not have the strength to stand up and walk.? Therefore EMS was called to have her brought in.? Patient has no specific complaints, complains of pain everywhere.? Daughter states she seemed to complain more of pain in her pelvis and in her right shoulder prior to transport.? The patient does not remember any fall. ER work-up consisted of labs, CT scan of head, and multiple imaging of spine, pelvis.
--- NOTE | 2022-04-23 13:49 | SW/DCPLANNER ---
Addendum entered by Paige Olivares 04/26/22 09:00: [facility]dom/ [facility] has accepted this patient SNF level of care. COVID swab will be collected prior to discharge. I will call and update patient's daughter this AM. Addendum entered by Paige Olivares 04/26/22 08:26: [facility] are currently reviewing patient information. Per MD patient is medically stable for discharge today. Original Note: I spoke with this patient's daughter (Maude) regarding discharge plans for this patient. Prior to admission patient was living at home alone. PT/OT evaluated patient and recommended SNF level of care at time of discharge. Maude requested that [facility] Maude is agreeable for patient information to be faxed to [facility] and [facility] at this time. Discharge date is unknown: I will continue to follow up with patient's family, MD and facilities.
--- NOTE | 2022-04-23 14:06 | HMH.PTEV ---
Physical Therapy Evaluation Rehab PT IP Evaluation Start: 04/23/22 12:14 Freq: ONCE Status: Active Protocol: Document 04/23/22 13:35 PHORNE (Rec: 04/23/22 14:06 PHORNE [id number]) Subjective/History History History 86 yowf adm to [facility] after found in floor at home by family. She presents with displaced L sup/inf pubic rami fxs and L sacral ala fx. She is currently very disoriented and unable to answer any questions about prior level of function. Subjective Subjective Pt c/o pain all over throughout treatment and is unable to localize when asked. Rehab PT IP Eval Objective Appearance Patient Behavior Crying,Wandering,Confused Patient Orientation Name Difficulty following instructions moderate Speech Pattern Clear Ambulation Patient Able to Ambulate No Balance Ability to Arise Unable Sitting Balance Steady, safe Standing Balance Unsteady Dynamic Sitting Balance Ability Fair Dynamic Standing Balance Ability Poor Transfers Bed Transfer Ability Maximum x 1 (75% assist) Chair Transfer Ability Maximum x 1 (75% assist) Sit to Stand Bed Transfer Ability Maximum x 1 (75% assist) Sit to Stand Chair Transfer Ability Maximum x 1 (75% assist) Rehab PT IP prob,goals,plan Problems Date of Evaluation: 04/23/22 PT IP Problems Bed Mobility,Transfers Rehab Potential Rehab Potential Fair Plan PT Intervention Plan Bed Mobility,Transfers, Therapeutic Exercise PT Plan Frequency Daily Duration LOS Discharge Goals Bed Transfer Ability Moderate x 2 (50% assist) Sit to Stand Chair Transfer Ability Moderate x 2 (50% assist) Ambulation Distance (feet) 3 Discharge Plan PT Discharge Plan Pt is most appropriate for SNF placement at this time. G -code Required No Eval Complexity Eval Charge Codes 15830 - High Complexity PHYSICIAN CERTIFICATION: I certify the specified therapy services for Tricia Burgos are required, authorized, and reviewed every 30 days.
[2022-04-23 14:07] VITALS: O2SAT 85
[2022-04-23 15:47] VITALS: BP 108/52; PULSE 62; RESP 20; TEMP 36.7; O2SAT 96
--- NOTE | 2022-04-23 16:40 | PC.NURSE ---
Pt has been alert to self only. Lungs are clear. She remains on 2L NC with O2 saturations measuring mid to upper 90's. I attempted to wean oxygen pt's sats dropped with each attempt. Her kovacs is to bedside draining dark urine. She was up to the chair with max assist from physical therapy. She has severe pain on movement. Pressure alarm is in place.
[2022-04-23 20:00] VITALS: BP 137/60; PULSE 68; RESP 18; TEMP 37.2; O2SAT 87
--- NOTE | 2022-04-23 20:55 | PC.NURSE ---
Patient refuses to wear nasal canula
[2022-04-24 04:00] VITALS: BP 125/53; PULSE 86; RESP 22; TEMP 37; O2SAT 92; BMI 19.1
[2022-04-24 07:32] VITALS: BP 123/52; PULSE 71; RESP 17; TEMP 36.7; O2SAT 98
[2022-04-24 08:00] VITALS: O2SAT 90
--- NOTE | 2022-04-24 08:43 | EXP.ACUTE.PN ---
Subjective *Date: 04/24/22 *Time: 08:43 Interval history: Overall patient is little bit more active and talkative than yesterday. She has minimal complaints of pain. Medical Exam Vital signs and Labs for Last 24 Hours: Vital Signs Temp Pulse Resp BP Pulse Ox 04/24/22 07:32 98.0 F 71 17 123/52 L 98 04/24/22 04:00 98.6 F 86 22 125/53 L 92 L 04/23/22 20:00 87 L 04/23/22 20:00 99.0 F 68 18 137/60 87 L 04/23/22 15:47 98.1 F 62 20 108/52 L 96 04/23/22 14:07 85 L Intake and Output 04/23/22 04/24/22 04/24/22 19:59 03:59 11:59 Intake Total 1163 / 1937 60 / 1937 714 / 1937 Output Total 250 / 250 0 / 250 Balance 913 / 1687 60 / 1687 714 / 1687 Intake: Intake, Oral Amount 300 / 460 60 / 460 100 / 460 Intake, Total IV Amount 863 / 1477 614 / 1477 0.9 % Sodium Chloride 1,000 ml 763 / 1377 614 / 1377 @ 50 mls/hr IV .Q20H [facility] Rx#: [id number] Levofloxacin/D5w 500 mg In 100 100 / 100 ml @ 100 mls/hr IV Q24H [facility] Rx# :[id number] Output: Output, Urine Amount 250 / 250 0 / 250 Other: Number of Unmeasured Voids 0 Weight 97 lb 3 oz Patient Weight 04/24/22 11:59 Weight 97 lb 3 oz Laboratory Results - last 24 hr 04/22/22 12:55: Urine Color Yellow, Urine Appearance Sl cloudy, Urine pH 6.5, Ur Specific Bastian 1.020, Urine Protein Negative, Urine Glucose (UA) Negative, Urine Ketones Negative, Urine Blood Trace-i, Urine Nitrate Positive, Urine Bilirubin Negative, Urine Urobilinogen 1.0, Ur Leukocyte Esterase Trace, Urine RBC Occasional, Urine WBC 3-5, Urine Bacteria 4+ I & O for Labs for Last 24 Hours: Intake & Output 04/21/22 04/22/22 04/23/22 04/24/22 11:59 11:59 11:59 11:59 Intake Total 400 / 400 1937 / 193 Output Total 600 / 600 250 / 250 Balance -200 / -200 1687 / 1687 Weight 97 lb 0.054 oz 97 lb 3 oz Microbiology Reports for the Last 24 Hours: Microbiology 04/22/22 12:55 Urine,Catheterized Urine Culture - Preliminary Gram Negative Rods Comment:: Heart rate irregular, mechanical valve click noticed. Lungs have good air movement. Abdomen soft. No edema. Lots of pain with movement of hips but when she is resting does not seem to be uncomfortable Assessment and Plan *Assessment and plan (1) Closed pelvic fracture: Status: Acute Category: Medical Code(s): S32.9XXA - Fracture of unspecified parts of lumbosacral spine and pelvis, initial encounter for closed fracture (2) Paroxysmal atrial fibrillation: Status: Acute Category: Medical Code(s): I48.0 - Paroxysmal atrial fibrillation (3) Mechanical heart valve present: Status: Chronic Category: Surgical Code(s): Z95.2 - Presence of prosthetic heart valve (4) Dementia: Status: Chronic Qualifiers: Dementia type: unspecified type Dementia behavioral disturbance: without behavioral disturbance Qualified Code(s): F03.90 - Unspecified dementia without behavioral disturbance Category: Medical Code(s): F03.90 - Unspecified dementia, unspecified severity, without behavioral disturbance, psychotic disturbance, mood disturbance, and anxiety Plan Patient has been in the victim of dementia over the past several months. And spite of aggressive oral therapy she is continue to progress. She has had multiple falls at home and I have talked with her and her daughter about going to a personal care type of environment of the past. They have declined. Specifically the patient has declined. Now we have an extremely unfortunate situation of fall, nonambulatory status. She will need to have a skilled care evaluation. No role for orthopedic intervention at this point. Cautiously watch anticoagulation, continue home medications as reordered and care management will be involved. Addendum for plan 04/24/2022-labs pending. Continue pain medication, PT evaluati
[2022-04-24 08:58] LABS: INR 5.17 (0.9-1.1); Prothrombin Time 50.9 seconds (10.1-12.5)
--- NOTE | 2022-04-24 09:03 | PC.NURSE ---
DR ALDRIDGE MADE AWARE OF CRITICAL PT/INR RELAYED FROM LAB. NAME AND VERIFIED. ORDER TO HOLD WARFARIN THIS MORNING.
[2022-04-24 15:09] VITALS: BP 125/51; RESP 16; TEMP 36.9; O2SAT 98
--- NOTE | 2022-04-24 18:13 | PC.NURSE ---
PT IS ALERT TO PERSON ONLY, CAN ANSWER SOME BASIC QUESTIONS BUT IS MOSTLY CONFUSED. SHE HAS REQUIRED 2 LNC FOR O2 SUPPORT. SWEENEY CATH IN PLACE TO BEDSIDE DRAIN. SEVERE PAIN NOTED DURING REPOSITIONING. Q2 TURN.
[2022-04-24 20:00] VITALS: BP 132/71; PULSE 90; RESP 18; TEMP 37.4; O2SAT 92
[2022-04-25 04:00] VITALS: BP 126/51; PULSE 69; RESP 16; TEMP 37.1; O2SAT 94; BMI 19.4
--- NOTE | 2022-04-25 05:46 | PC.NURSE ---
PATIENT WAS TEARFUL EARLY IN THIS SHIFT. WANTED TO GO HOME. CONFUSED. ACCUSED STAFF OF HOLDING HER HOSTAGE IN AN AUDITORIUM. 94% 02 SAT ON 2LNC. PULLED 2 IVs OUT. NEW IV PLACED IN RFA X 1 STICK AND WRAPPED IN COBAN AND GAUZE TO PREVENT PATIENT FROM PULLING IT OUT. F/C PATENT AND INTACT TO BSD, URINE CLEAR YELLOW, ADEQUATE AMTS.
[2022-04-25 07:02] LABS: INR 2.76 (0.9-1.1); Prothrombin Time 28.1 seconds (10.1-12.5)
[2022-04-25 07:17] VITALS: BP 150/84; PULSE 69; RESP 16; TEMP 36.5; O2SAT 98
[2022-04-25 07:53] VITALS: O2SAT 93
--- NOTE | 2022-04-25 08:38 | EXP.ACUTE.PN ---
Subjective *Date: 04/25/22 *Time: 08:38 Interval history: Patient is awake, has eaten some good breakfast. No change in pain complaints, remains afflicted with her dementia Medical Exam Vital signs and Labs for Last 24 Hours: Vital Signs Temp Pulse Resp BP Pulse Ox 04/25/22 07:53 93 L 04/25/22 07:17 97.7 F 69 16 150/84 H 98 04/25/22 04:00 98.7 F 69 16 126/51 L 94 L 04/24/22 20:00 92 L 04/24/22 20:00 99.3 F 90 18 132/71 92 L 04/24/22 15:09 98.4 F 16 125/51 L 98 Intake and Output 04/24/22 04/25/22 04/25/22 19:59 03:59 11:59 Intake Total 60 / 1092 60 / 1092 972 / 1092 Output Total 425 / 775 0 / 775 350 / 775 Balance -365 / 317 60 / 317 622 / 317 Intake: Intake, Oral Amount 60 / 180 60 / 180 60 / 180 Intake, Total IV Amount 912 / 912 0.9 % Sodium Chloride 1,000 ml 812 / 812 @ 50 mls/hr IV .Q20H GABRIEL Rx#: [id number] Levofloxacin/D5w 500 mg In 100 100 / 100 ml @ 100 mls/hr IV Q24H GABRIEL Rx# :[id number] Output: Output, Urine Amount 0 / 350 0 / 350 350 / 350 Output, Urine Amount (Catheter) 425 / 425 Parikh 425 / 425 Other: Number of Unmeasured Voids 0 0 0 Weight 99 lb Patient Weight 04/25/22 11:59 Weight 99 lb Laboratory Results - last 24 hr 04/24/22 08:23: PT 50.9 H, INR 5.17 H 04/25/22 06:20: PT 28.1 H, INR 2.76 H I & O for Labs for Last 24 Hours: Intake & Output 04/22/22 04/23/22 04/24/22 04/25/22 11:59 11:59 11:59 11:59 Intake Total 400 / 400 1937 / 1937 1092 / 1092 Output Total 600 / 600 250 / 250 775 / 775 Balance -200 / -200 1687 / 1687 317 / 317 Weight 97 lb 0.054 oz 97 lb 3 oz 99 lb Microbiology Reports for the Last 24 Hours: Microbiology 04/22/22 13:00 Blood Blood Culture - Preliminary NO GROWTH AFTER 48 HOURS 04/22/22 13:00 Blood Blood Culture - Preliminary NO GROWTH AFTER 48 HOURS Comment:: No change in exam from yesterday, irregular rate, mechanical valve sound, abdomen soft, some bruising around the sternum that is progressing. No change in extremity exam Assessment and Plan *Assessment and plan (1) Closed pelvic fracture: Status: Acute Category: Medical Code(s): S32.9XXA - Fracture of unspecified parts of lumbosacral spine and pelvis, initial encounter for closed fracture (2) Paroxysmal atrial fibrillation: Status: Acute Category: Medical Code(s): I48.0 - Paroxysmal atrial fibrillation (3) Mechanical heart valve present: Status: Chronic Category: Surgical Code(s): Z95.2 - Presence of prosthetic heart valve (4) Dementia: Status: Chronic Qualifiers: Dementia type: unspecified type Dementia behavioral disturbance: without behavioral disturbance Qualified Code(s): F03.90 - Unspecified dementia without behavioral disturbance Category: Medical Code(s): F03.90 - Unspecified dementia, unspecified severity, without behavioral disturbance, psychotic disturbance, mood disturbance, and anxiety Plan Patient has been in the victim of dementia over the past several months. And spite of aggressive oral therapy she is continue to progress. She has had multiple falls at home and I have talked with her and her daughter about going to a personal care type of environment of the past. They have declined. Specifically the patient has declined. Now we have an extremely unfortunate situation of fall, nonambulatory status. She will need to have a skilled care evaluation. No role for orthopedic intervention at this point. Cautiously watch anticoagulation, continue home medications as reordered and care management will be involved. Addendum for plan 04/24/2022-labs pending. Continue pain medication, PT evaluation. Social work is involved with plan for skilled care transfer Addendum for 04/25/2022-labs pending-have held warfarin given h
[2022-04-25 08:44] LABS: Basophils % 0.2 % (0.1-2.0); Chloride 109 mmol/L (98-107); Eosinophils # 0.1 K/mm3 (0.0-0.4); Eosinophils % 1.1 % (0.1-12.0); Hematocrit 25.4 % (37.0-47.0); Hemoglobin 8.5 g/dL (12.2-16.2); Lymphocytes # 0.7 K/mm3 (0.7-4.5); Lymphocytes % 12.8 % (10-50); Mean Corpuscular HGB Conc 33.4 g/dL (31.8-35.4); Mean Corpuscular Hemoglobin 35.4 pg (27.0-31.2); Mean Corpuscular Volume 105.9 fl (81-99); Mean Platelet Volume 10.1 fl (7.4-10.4); Monocytes # 0.4 K/mm3 (0.1-1.0); Monocytes % 6.2 % (1.7-9.3); Neutrophils # 4.4 K/mm3 (1.8-7.8); Neutrophils % 79.7 % (37.0-80.0); Platelet Count 89 K/mm3 (142-424); Red Cell Distribution Width 14.1 % (11.5-17.5); White Blood Count 5.6 K/mm3 (4.8-10.8)
[2022-04-25 08:45] LABS: Sodium 140 mmol/L (136-145)
[2022-04-25 08:48] LABS: Blood Urea Nitrogen 15 mg/dl (7-17); Calcium 8.3 mg/dl (8.4-10.2); Carbon Dioxide 26 mmol/L (22.0-30.0); Creatinine Clearance Estimated 30 mL/min (50-200); Estimated Glomerular Filt Rate 118 ml/min (>60); GFR (African American) 142 ML/MIN (>60); Glucose 107 mg/dl (74-100)
[2022-04-25 14:57] VITALS: BP 133/58; PULSE 81; RESP 16; TEMP 37; O2SAT 97
[2022-04-25 20:00] VITALS: BP 148/69; PULSE 60; RESP 20; TEMP 37.4; O2SAT 97
[2022-04-26 04:00] VITALS: BP 133/61; PULSE 66; RESP 18; TEMP 37.1; O2SAT 100; BMI 19.3
--- NOTE | 2022-04-26 05:56 | PC.NURSE ---
Pt alert to person only. Able to say 1st name. Pt confused and restless this shift. Pt has c/o pain 1x t/o shift. PRN pain medication administered per JUL. Pt kovacs in place draining clear mary urine. Call light within reach. Bed alarm on for safety.
[2022-04-26 07:26] LABS: INR 1.95 (0.9-1.1); Prothrombin Time 20.3 seconds (10.1-12.5)
[2022-04-26 08:00] VITALS: BP 122/57; PULSE 68; RESP 16; TEMP 36.9; O2SAT 98
[2022-04-26 10:37] LABS: Coronavirus 19, PCR Not Detected (NotDetected); Influenza A, PCR Not Detected (NotDetected); Influenza B, PCR Not Detected (NotDetected)
--- NOTE | 2022-04-26 11:38 | EXP.DC.SUM ---
General Admission date:: 04/22/22 Discharge date: 04/26/22 HPI HPI HPI: Description of Symptoms (Recalled from ER Triage Doc. by RN): pt to ed via ems c/o fall. daughter at the bedside states she checked on her mother yesterday evening and said she was at baseline. daughter states she checked on her this morning and found her in the floor. pt is a poor historian and is unable to localize pain. pt reports pain everywhere and has generalized tenderness on palpation. History of Present Illness HPI narrative: Patient brought in by ambulance.? History obtained from patient's daughter.? Patient is a poor historian. Daughter states that she saw the patient yesterday evening and she was at her usual baseline state of health.? States she has not recently been ill.? This morning at 11 AM she went to check on her and found her on the floor.? It did not look like her bed had been slept in.? She got the patient up into a chair but when she tried to get the patient up using her walker she did not have the strength to stand up and walk.? Therefore EMS was called to have her brought in.? Patient has no specific complaints, complains of pain everywhere.? Daughter states she seemed to complain more of pain in her pelvis and in her right shoulder prior to transport.? The patient does not remember any fall. Above As per ER physician documentation. Agree with above. ER work-up consisted of labs, CT scan of head, and multiple imaging of spine, pelvis. This revealed pelvic fractures as noted. CT cystogram was noted to rule out bladder rupture given some fluid appearance around the bladder on one of the CT scans, this was negative for evidence of bladder wall leakage, and patient was admitted to [facility] for pain control and probable placement. Hospital Course Hospital Course Hospital Course: Patient was admitted. Multiple fractures, compression fractures, sacral fractures, etc. were found on imaging. There was a suspicion of possible bladder rupture given the surrounding fluid on initial CT scan. CT cystoscopy showed no evidence of bladder rupture and she was admitted to [facility]. Pain control was initiated and she did well with this. PT evaluation felt that she would deserve ongoing long-term skilled care and probably would need long-term care even after that given her significant functional and cognitive decline. INR was up and down, pharmacy helped his dose warfarin. Family that she needed to ongoing skilled care evaluation a bed was found for her at the [facility] today she will be transferred there today for ongoing PT/OT/nutritional consult. Please note she will need ongoing INR monitoring. She will need an INR and a CBC tomorrow morning. Other medications are as per discharge medication list. Follow-up will be per our rounds. Description of Symptoms (Recalled from ER Triage Doc. by RN): pt to ed via ems c/o fall. daughter at the bedside states she checked on her mother yesterday evening and said she was at baseline. daughter states she checked on her this morning and found her in the floor. pt is a poor historian and is unable to localize pain. pt reports pain everywhere and has generalized tenderness on palpation. History of Present Illness HPI narrative: Patient brought in by ambulance.? History obtained from patient's daughter.? Patient is a poor historian. Daughter states that she saw the patient yesterday evening and she was at her usual baseline state of health.? States she has not recently been ill.? This morning at 11 AM she went to check on her and found her on the floor.? It did not look like her bed had been slept in.? She got the patient up into a chair but when she tried to get the patient up using her walker she did not have the strength to stand up and walk.? Therefore EMS was called to have her brought in.? Patient has no specific complaints, complains of pain everywhere.? Daughter states she seemed to complai
--- NOTE | 2022-04-26 12:00 | DIET.NUTRFU ---
RD visited patient to review meal intake, due to advanced dementia she is unable to recall meal intake. She did have a empty sherbert on bedside table. She denied any GI distress. Spoke to nursing aid and she refused breakfast and did not drink ensure. She is receiving ensure with all meals. Will start sherbert with 1 tray/day also for extra calories and protein. Patient was just here in December and was more alert and had better recall on diet and intake. She was also more mobil last admit, this admit she is planning to go to rehab. Reviewing weights she also lost 3kg since December. Based on areas of decline she triggers for severe PCM- will notify case liner.
--- NOTE | 2022-04-26 12:27 | PC.NURSE ---
report called to jeremy tom at [facility]
--- NOTE | 2022-04-27 15:28 | SW/DCPLANNER ---
Follow up phone call was made with this patient's daughter: patient is at [facility] level of care. Daughter did have medication questions and these were answered by CM: that medication prior to hospital admission will be continued. Daughter does not have any further questions/needs at this time.
== END 2022-04-26 13:14 | DRG 552 ==
LOC: ER 20:55 → 2ND 21:26
PROVIDERS: Admitting Provider Internal Medicine Adolescent Medicine; Emergency Provider Emergency Medicine; PCP Internal Medicine Adolescent Medicine; Visit Provider Internal Medicine Adolescent Medicine
DX: S32.10XA Unspecified fracture of sacrum, initial encounter for closed fracture (principal); I10 Essential (primary) hypertension; E78.00 Pure hypercholesterolemia, unspecified; I48.0 Paroxysmal atrial fibrillation; I27.20 Pulmonary hypertension, unspecified; F03.90 Unspecified dementia, unspecified severity, without behavioral disturbance, psychotic disturbance, mood disturbance, and anxiety; Z95.2 Presence of prosthetic heart valve; W19.XXXA Unspecified fall, initial encounter
CPT/HCPCS: 36415; 51702; 70450; 71260; 72125; 72128; 72131; 72193; 73070; 73521; 74177; 80048; 80053; 81001; 82550; 82553; 83605; 84484; 85007; 85025; 85610; 87040; 87086; 87088; 87186; 97110; 97163; 97165; 97530; 99285; C9803; J1956; J2405; Q9958; Q9967; U0003; U0005

== ENCOUNTER 2022-08-22 16:24 | Emergency (ER) | payer MEDICARE, BC, SELFPAY ==
[2022-08-22] VITALS (12 sets, daily range): BP systolic 98–156; BP diastolic 46–90; PULSE 60–85; RESP 16–20; TEMP 36.6–36.9; O2SAT 91–98; BMI 19.8; BMI 18.6
--- NOTE | 2022-08-22 16:28 | XR_ITS ---
PROCEDURE INFORMATION: Exam: XR Right Femur Exam date and time: 08/22/2022 5:08 PM Age: 86 years old Clinical indication: Injury or trauma; Fall; Blunt trauma; Other: Pelvis TECHNIQUE: Imaging protocol: Radiologic exam of the right femur. Views: 2 views. COMPARISON: CT PELVIS W CON 04/22/2022 7:51 PM FINDINGS: Bones/joints: Deformity of the left superior pubic ramus noted. There is an acute fracture of the right inferior pubic ramus. A superior pubic ramus fracture is not well seen but suspected. Questionable impacted subcapital fracture. Soft tissues: Unremarkable. IMPRESSION: 1. There is an acute fracture of the right inferior pubic ramus. A superior pubic ramus fracture is not well seen but suspected. 2. Questionable impacted subcapital fracture.
--- NOTE | 2022-08-22 16:28 | XR_ITS ---
PROCEDURE INFORMATION: Exam: XR Right Hip Exam date and time: 08/22/2022 5:08 PM Age: 86 years old Clinical indication: Injury or trauma; Fall; Blunt trauma (contusions or hematomas); Bilateral; Groin; Additional info: Fall-- also femur xrays- TECHNIQUE: Imaging protocol: Radiologic exam of the right hip. Views: 2 or 3 views hip with pelvis when performed. COMPARISON: CT PELVIS W CON 04/22/2022 7:51 PM FINDINGS: Bones/joints: There are acute mildly displaced fractures of the right pubic rami. Healed left pubic rami fractures. Questionable acute impacted right femoral subcapital fracture. Soft tissues: Unremarkable. IMPRESSION: 1. Acute mildly displaced fractures of the right pubic rami. 2. Questionable acute impacted right femoral subcapital fracture.
--- NOTE | 2022-08-22 16:31 | CT_ITS ---
PROCEDURE INFORMATION: Exam: CT Head Without Contrast Exam date and time: 08/22/2022 4:47 PM Age: 86 years old Clinical indication: Injury or trauma; Fall; Blunt trauma (contusions or hematomas); Consciousness not specified; Additional info: Concern for ich TECHNIQUE: Imaging protocol: Computed tomography of the head without contrast. Radiation optimization: All CT scans at this facility use at least one of these dose optimization techniques: automated exposure control; mA and/or kV adjustment per patient size (includes targeted exams where dose is matched to clinical indication); or iterative reconstruction. REPORTING DATA: Count of CT and Cardiac NM exams in prior 12 months: This patient has received 8 known CTs and 0 known cardiac nuclear medicine studies in the 12 months prior to the current study. COMPARISON: CT HEAD/BRAIN WO CON 04/22/2022 3:47 PM FINDINGS: Brain: Intracranial vascular calcification. Decreased attenuation of the supratentorial white matter is likely secondary to chronic microvascular ischemia. No acute intracranial hemorrhage. Chronic left cerebellar infarct. Cerebral ventricles: Ventricular and subarachnoid spaces are age appropriate. Paranasal sinuses: Visualized sinuses are unremarkable. No fluid levels. Mastoid air cells: Visualized mastoid air cells are well aerated. Orbital cavities: Asymmetric soft tissue prominence of the right optic nerve. Bones/joints: Unremarkable. No acute fracture. Soft tissues: Posterior scalp soft tissue swelling. IMPRESSION: 1. No acute intracranial abnormality. 2. Asymmetric soft tissue prominence along the right optic nerve. MRI orbits with and without contrast may be considered.
--- NOTE | 2022-08-22 16:31 | CT_ITS ---
PROCEDURE INFORMATION: Exam: CT Cervical Spine Without Contrast Exam date and time: 08/22/2022 4:49 PM Age: 86 years old Clinical indication: Injury or trauma; Fall; Blunt trauma TECHNIQUE: Imaging protocol: Computed tomography of the cervical spine without contrast. Radiation optimization: All CT scans at this facility use at least one of these dose optimization techniques: automated exposure control; mA and/or kV adjustment per patient size (includes targeted exams where dose is matched to clinical indication); or iterative reconstruction. REPORTING DATA: Count of CT and Cardiac NM exams in prior 12 months: This patient has received 8 known CTs and 0 known cardiac nuclear medicine studies in the 12 months prior to the current study. COMPARISON: CT CERVICAL SPINE WO CON 04/22/2022 3:47 PM FINDINGS: Bones/joints: [id number] dextroconvex curvature. Grade 1 anterolisthesis of C3 on C4 and C6 on C7. Vertebral body heights are preserved. Moderate to severe degenerative change about the dens. Moderate prevertebral osteophytosis. Advanced facet joint degenerative change. No acute cervical spine fracture. No definite significant central canal stenosis within limitations of technique. Multilevel cervical foraminal stenoses. Lungs: Lung apices are normal. Pleural spaces: No visible pneumothorax. Vasculature: Vascular calcification. Soft tissues: Unremarkable. IMPRESSION: No acute cervical spine fracture.
--- NOTE | 2022-08-22 17:05 | PC.NURSE ---
pt arrived back to room from radiology
--- NOTE | 2022-08-22 17:36 | CT_ITS ---
PROCEDURE INFORMATION: Exam: CT Pelvis Without Contrast; Skeletal Exam date and time: 08/22/2022 6:19 PM Age: 86 years old Clinical indication: Injury or trauma; Fall; Additional info: Fall, fracture TECHNIQUE: Imaging protocol: Computed tomography of the pelvis without contrast. Exam focused on the skeleton. Radiation optimization: All CT scans at this facility use at least one of these dose optimization techniques: automated exposure control; mA and/or kV adjustment per patient size (includes targeted exams where dose is matched to clinical indication); or iterative reconstruction. REPORTING DATA: Count of CT and Cardiac NM exams in prior 12 months: This patient has received 9 known CTs and 0 known cardiac nuclear medicine studies in the 12 months prior to the current study. COMPARISON: CT PELVIS W CON 04/22/2022 7:51 PM FINDINGS: Bones/joints: Diffuse osteopenia. Acute comminuted, displaced fractures involving both anterior and posterior acetabular columns. The fracture lines involve the right iliac wing and obturator ring. Healed left pubic rami and left sacral ala fractures. (lateral compression injury). Right femoral neck is intact. Soft tissues: Unremarkable. IMPRESSION: Acute, displaced right both-column acetabular fractures.
--- NOTE | 2022-08-22 17:51 | HMH.EDGENADL ---
Discharge Plan Disposition Patient Disposition: Xfer Short-Term Hosp Prescriptions Prescriptions: No Action simvastatin 40 mg tablet 40 mg PO HS warfarin 3 mg tablet 1.5 mg PO SUTUTHSA Label Comments: TAKE ONE TABLET BY MOUTH EVERY DAY metoprolol succinate 25 mg tablet extended release 24 hr 25 mg PO BID Label Comments: TAKE ONE TABLET BY MOUTH TWICE DAILY escitalopram oxalate 10 mg tablet 10 mg PO DAILY Label Comments: TAKE ONE TABLET BY MOUTH EVERY DAY memantine 14 mg capsule,sprinkle,ER 24hr 14 mg PO DAILY Label Comments: TAKE ONE CAPSULE BY MOUTH EVERY DAY tramadol-acetaminophen 37.5-325 mg tablet 1 tab PO QID PRN (Reason: Pain) 30 Days Qty: 120 1RF levofloxacin [levofloxacin] 500 mg tablet 500 mg PO DAILY Qty: 5 0RF warfarin 3 MG tablet 3 mg PO MOWEFR donepezil 5 MG tablet 5 mg PO HS Referrals Follow up/Referrals: Nazario Burk MD [Primary Care Provider] - See instructions Clinical Impressions Clinical Impression: Multiple pelvic fractures Stand Alone Forms Stand Alone Forms: Transfer Record - ED Discharge ED Provider: Mainor Mustafa General Adult HPI General Chief complaint: Fall Stated complaint: fall Time Seen by Provider: 08/22/22 16:35 Mode of Arrival: EMS Source of Information: EMS Limitations: No Limitations Description of Symptoms (Recalled from ER Triage Doc. by RN): pts transported to ED via EMS. pt resident at [facility]. EMS reports that pt was on floor when they got there. per staff pt was walking and fell hurting her right hip and hematoma on back of head. no bleeding noted. pt does take 5 mg coumadin daily. no LOC. pt is A&O. History of Present Illness HPI narrative: Patient is an 86-year-old female with past medical history of CVA who presents with concern for ground-level fall. History obtained from the patient as well as from EMS. They report that nursing staff found her on the ground earlier today. She reports that she did not fall much earlier than when she was found. She is complaining of pain on her right hip as well as the back of her head. She was unable to ambulate afterwards. She does take 5 mg of Coumadin daily. No loss consciousness. Denies any numbness or tingling into her extremities. Denies any chest or abdominal pain. Denies any shortness of breath. Related Data Home Medications Medication Instructions Recorded Confirmed donepezil 5 mg tablet 5 mg PO HS ALZHEIMERS 01/11/18 07/28/22 warfarin 3 mg tablet 3 mg PO MOWEFR PROSTHETIC VALVE 01/11/18 07/28/22 escitalopram oxalate 10 mg tablet 10 mg PO DAILY MOOD 04/23/22 07/28/22 memantine 14 mg capsule 14 mg PO DAILY MEMORY 04/23/22 07/28/22 sprinkle,extended release 24hr metoprolol succinate 25 mg 25 mg PO BID Hypertension 04/23/22 07/28/22 tablet,extended release 24 hr simvastatin 40 mg tablet 40 mg PO HS Cholesterol 04/23/22 07/28/22 warfarin 3 mg tablet 1.5 mg PO SUTUTHSA PROSTHETIC VALVE 04/23/22 07/28/22 Previous Rx's Medication Instructions Recorded levofloxacin 500 mg tablet 500 mg PO DAILY #5 tabs 04/26/22 tramadol 37.5 mg-acetaminophen 325 1 tab PO QID PRN Pain 30 days #120 04/26/22 mg tablet tabs Allergies Allergy/AdvReac Type Severity Reaction Status Date / Time Sulfa (Sulfonamide Allergy Severe Difficulty Verified 07/28/22 11:19 Antibiotics) Breathing [SULFA (SULFONAMIDE ANTIBIOTICS)] [facility] Disclaimer: The information contained in this section may have been updated after the patient was seen, as this information can be updated by other users. Medical History Cardiac pacemaker in situ Essential hypertension History of cerebrovascular accident HTN (hypertension) Hypercholesteremia Lumbar contusion Paroxysmal atrial fibrillation Pre-op evaluation Pulmonary hypertension Rhabdomyolysis Thrombocytopenia Surgical His
--- NOTE | 2022-08-22 18:32 | PC.NURSE ---
fentanyl vial order was 100mcg/2ml vial. pulled 250mcg/5mL by mistake. returned and witnessed with yohana lombardo rn. attempted to pull 100mcg/2ml vial, none available in ER [facility]. fentanyl that was returned was last vial in ED [facility]. called nursing staff from another department for another vial. verified with yohana lombardo rn
--- NOTE | 2022-08-22 19:54 | PC.NURSE ---
DR walker on phone with dr boland
--- NOTE | 2022-08-22 19:54 | PC.NURSE ---
called [facility]
--- NOTE | 2022-08-22 19:56 | PC.NURSE ---
Pt using bed nguyen
--- NOTE | 2022-08-22 20:14 | PC.NURSE ---
Addendum entered by Polly Mckeon RN 08/22/22 20:16: Correction: provider is Dr. Braden Original Note: Dr. Baptiste s/w [facility]- trauma provider Dr. Benson
[2022-08-22 20:18] LABS: Microscopic, Urine URINE MICROSCOPIC (MICROSCOPIC)
--- NOTE | 2022-08-22 20:18 | PC.NURSE ---
Pt large bowel movement using bed pain. All belongings placed in bag and given to daughter. No other needs voiced.
[2022-08-22 21:02] LABS: Appearance,Urine CLEAR (Clear); Bilirubin,Urine Negative (Negative); Blood, Urine 2+ (Negative); Color,Urine YELLOW (Yellow); Glucose,Urine (UA) Negative (Negative); Ketones,Urine Negative (Negative); Leukocyte Esterase,Urine Negative (Negative); Nitrate,Urine POSITIVE (Negative); Protein,Urine Negative (Negative); Urobilinogen,Urine 0.2 EU/dl (0.2)
[2022-08-22 21:05] LABS: Bacteria,Urine 4+ /lpf; RBC,Urine Occasional #/hpf (0-3); WBC,Urine Occasional #/hpf (0-3)
--- NOTE | 2022-08-22 21:40 | PC.NURSE ---
Updated [facility] that pt would be transported to [facility]
== END 2022-08-22 23:24 | disposition short-term general hospital (02) ==
PROVIDERS: Emergency Provider Student in an Organized Health Care Education/Training Program; PCP Internal Medicine Adolescent Medicine
DX: S32.431A Displaced fracture of anterior column [iliopubic] of right acetabulum, initial encounter for closed fracture (principal); S32.441A Displaced fracture of posterior column [ilioischial] of right acetabulum, initial encounter for closed fracture; W18.30XA Fall on same level, unspecified, initial encounter
CPT/HCPCS: 51702; 70450; 72125; 72192; 73502; 73552; 81001; 87086; 87088; 87186; 96374; 96375; 96376; 99285

== ENCOUNTER 2022-09-02 14:00 | Emergency (ER) | payer MEDICARE, BC, SELFPAY ==
[2022-09-02] VITALS (8 sets, daily range): BP systolic 108–171; BP diastolic 50–114; PULSE 60–92; RESP 16–21; TEMP 37–37.1; O2SAT 96–100; BMI 18.4
[2022-09-02 14:25] LABS: Hematocrit 29.5 % (37.0-47.0); Hemoglobin 9.5 g/dL (12.2-16.2)
[2022-09-02 14:39] LABS: Basophils % 0.4 % (0.1-2.0); Eosinophils # 0.1 K/mm3 (0.0-0.4); Eosinophils % 0.9 % (0.1-12.0); Hematocrit 34.1 % (37.0-47.0); Lymphocytes # 1.1 K/mm3 (0.7-4.5); Lymphocytes % 19.9 % (10-50); Mean Corpuscular HGB Conc 31.3 g/dL (31.8-35.4); Mean Corpuscular Hemoglobin 34.2 pg (27.0-31.2); Mean Corpuscular Volume 109.3 fl (81-99); Mean Platelet Volume 8.8 fl (7.4-10.4); Monocytes # 0.4 K/mm3 (0.1-1.0); Monocytes % 7.7 % (1.7-9.3); Neutrophils % 71.1 % (37.0-80.0); Platelet Count 262 K/mm3 (142-424); Red Blood Count 3.12 M/mm3 (4.20-5.40); Red Cell Distribution Width 16.3 % (11.5-17.5); White Blood Count 5.6 K/mm3 (4.8-10.8)
[2022-09-02 14:40] LABS: Chloride 103 mmol/L (98-107); Sodium 136 mmol/L (136-145)
[2022-09-02 14:41] LABS: Potassium 3.4 mmoL/L (3.5-5.1)
--- NOTE | 2022-09-02 14:42 | HMH.EDGENADL ---
Discharge Plan Disposition Chief Complaint: Fall Prescriptions Prescriptions: No Action simvastatin 40 mg tablet 40 mg PO HS warfarin 3 mg tablet 1.5 mg PO SUTUTHSA Label Comments: TAKE ONE TABLET BY MOUTH EVERY DAY metoprolol succinate 25 mg tablet extended release 24 hr 25 mg PO BID Label Comments: TAKE ONE TABLET BY MOUTH TWICE DAILY escitalopram oxalate 10 mg tablet 10 mg PO DAILY Label Comments: TAKE ONE TABLET BY MOUTH EVERY DAY memantine 14 mg capsule,sprinkle,ER 24hr 14 mg PO DAILY Label Comments: TAKE ONE CAPSULE BY MOUTH EVERY DAY tramadol-acetaminophen 37.5-325 mg tablet 1 tab PO QID PRN (Reason: Pain) 30 Days Qty: 120 1RF levofloxacin [levofloxacin] 500 mg tablet 500 mg PO DAILY Qty: 5 0RF warfarin 3 MG tablet 3 mg PO MOWEFR donepezil 5 MG tablet 5 mg PO HS Referrals Follow up/Referrals: Provider,Referral, MD [Primary Care Provider] - See instructions Activity Restrictions/Add. Instructions Additional Instructions/Restrictions: Patient has multiple pelvic fractures which are consistent with old injuries which were deemed nonoperative the risk of [place]. Based on my conversation with the patient's daughter patient risk for surgery outweighs prospective benefit in patients operative risk will remain high regardless of injuries that she sustained while falling. I discussed with the daughter that the trajectory of her treatment is now palliative in the sense that we are no longer working up acute traumatic injuries which would require emergent intervention which her daughter agrees to. I would advise that you discuss this case with Dr. Escoto and with the family further for possible hospice care and palliative care measures as this patient continues to fall and has been deemed to be a nonoperative candidate. Her INR today was still elevated just over 6 please continue to hold her Coumadin. Her hemoglobin was stable and there is no clinical evidence of any ongoing hemorrhage. Clinical Impressions Clinical Impression: Fall, Supratherapeutic INR, Multiple pelvic fractures Discharge ED Provider: Caroline Sheth General Adult [facility] General Chief complaint: Fall Stated complaint: Fall Time Seen by Provider: 09/02/22 14:42 Mode of Arrival: Ambulatory Source of Information: Patient Limitations: No Limitations Description of Symptoms (Recalled from ER Triage Doc. by RN): pt to ED from [facility] after an unwhitnessed fall. per staff pt reportedly had a fall on 08/23 where she was sent to diagnosed with an inoperable right hip fracture and pelvic fracture. pt also had a fall on 08/24 andf then again today because she refuses to stay in bed and be non weight bearing per prison staff. pt complains of right hip pain and left shoulder pain. pt denies any LOC. pt is taking warfarin but not for the last week due to critical hgb. History of Present Illness HPI narrative: Patient is an 86-year-old female presenting from prison after a fall. She was recently seen at [facility] and found to have pelvic fractures and transferred [facility] she was admitted on 08/23/2022 and was discharged not long after this. She was seen by orthopedic trauma team was an internal medicine had shared decision making with the family and surgical teams given patient's advanced age dementia multiple comorbidities including artificial valve and therapeutic anticoagulation family and orthopedic surgery decided that patient was too high risk to undergo any surgical management and deferred any surgical planning. Patient was discharged back to the prison and per EMS she has been attempting to ambulate and has fallen multiple times since that time. This includes a fall earlier today. Patient was on Coumadin in the past but they have been holding this since Tuesday per EMS. Patient states she is chronically in pain and hurts all over. H
[2022-09-02 14:43] LABS: Alanine Aminotransferase 17 U/L (12-78); Alkaline Phosphatase 192 U/L (38-126); Anion Gap 8.4 mEq/L (5-15); Aspartate Amino Transferase 36 U/L (14-36); Bilirubin,Total 1.4 mg/dl (0.2-1.3); Blood Urea Nitrogen 16 mg/dl (7-17); Carbon Dioxide 28 mmol/L (22.0-30.0); Creatinine Clearance Estimated 31 mL/min (50-200); Estimated Glomerular Filt Rate 80 ml/min (>60); GFR (African American) 96 ML/MIN (>60)
[2022-09-02 14:44] LABS: Albumin Level 3.8 g/dl (3.5-5.0); Albumin/Globulin Ratio 1.3 (1.1-1.8); Calcium 8.8 mg/dl (8.4-10.2); Glucose 137 mg/dl (74-100); Total Protein,Serum 6.8 g/dl (6.3-8.2)
--- NOTE | 2022-09-02 14:50 | XR_ITS ---
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 Views: 1 or 2 view. COMPARISON: CT BONY PELVIS 08/22/2022 6:19 PM FINDINGS: Bones/joints: Comminuted fracture of the anterior and posterior and superior aspect of the right acetabulum . Associated fracture of the proximal superior pubic ramus and mid to distal inferior pubic ramus on the right. Comminuted fracture through the left symphysis pubis and the distal left inferior pubic ramus noted. Vertical sclerotic band in the left sacrum compatible with insufficiency fracture possible healing fracture. No other fracture evident. Soft tissues: Unremarkable. IMPRESSION: Extensive right acetabular fractures as well as fractures of the right superior and inferior pubic rami. Fractures of the left symphysis pubis and inferior pubic ramus and the left sacrum.
--- NOTE | 2022-09-02 14:50 | XR_ITS ---
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 Views: 1 view. 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 Lungs: Unremarkable. No consolidation. Pleural spaces: Unremarkable. No pleural effusion. No pneumothorax. 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 Vascularity appears normal. Bones/joints: Unremarkable. IMPRESSION: Stable chest x-ray with no acute disease.
[2022-09-02 14:54] LABS: Hemoglobin 10.7 g/dL (12.2-16.2)
--- NOTE | 2022-09-02 15:00 | PC.NURSE ---
XR AT BEDSIDE
[2022-09-02 15:08] LABS: INR 6.47 (0.9-1.1); Prothrombin Time 62.9 seconds (10.1-12.5)
--- NOTE | 2022-09-02 15:25 | PC.NURSE ---
paged Dr. Burk for pt
--- NOTE | 2022-09-02 15:32 | PC.NURSE ---
Dr. Sheth consulted with Dr. Burk and pts. daughter, Maude (POA), and all agree that pt. should have a hospice consult. Tatiana, with care management, was contacted to start the process with care navigators for hospice care. Tatiana to see pt. before discharge.
--- NOTE | 2022-09-02 15:33 | SW/DCPLANNER ---
Addendum entered by Paige Olivares 09/02/22 15:45: I have also updated [facility]/ [place]. Original Note: Patient is a resident at [facility]. Per ER staff (Kristan): MD and family have discussed and are agreeable to Hospice services. Patient information will be faxed to [facility] Navigators. Patient will discharge back to [facility] today from ED.
--- NOTE | 2022-09-02 16:00 | PC.NURSE ---
report called back to MYKEL Lyon at [place]
== END 2022-09-02 17:26 | disposition home or self-care (01) ==
PROVIDERS: Internal Medicine Adolescent Medicine; Emergency Provider Student in an Organized Health Care Education/Training Program
DX: S32.10XA Unspecified fracture of sacrum, initial encounter for closed fracture (principal); S32.401A Unspecified fracture of right acetabulum, initial encounter for closed fracture; S32.511A Fracture of superior rim of right pubis, initial encounter for closed fracture; R79.1 Abnormal coagulation profile; W19.XXXA Unspecified fall, initial encounter
CPT/HCPCS: 71045; 72170; 80053; 85014; 85018; 85025; 85610; 99285